=== PATIENT | male | born 1955 | race Caucasian/White ===

== ENCOUNTER 2020-06-16 12:31 | Day surgery (SDC) | payer MEDICARE, OTHER, SELFPAY ==
[2020-06-14 10:29] VITALS: BMI 29.0
--- NOTE | 2020-06-14 14:39 | HO.ANESPROP2 ---
Documented by User: Genny Watkins 06/14/20 14:41 HPI - Anesthesia Eval Consult details Narrative: 65yo M for Colonoscopy PMFSH Past Medical History Medical History Back pain Diabetes DVT (deep venous thrombosis) Elevated cholesterol Factor V deficiency History of fractured rib History of renal stone History of unsteady gait On anticoagulant therapy Surgical History Surgical History H/O cervical discectomy History of testicular surgery History of total left hip replacement Hx of colonoscopy Hx of elbow surgery Social History Social History Smoking Status: Never smoker Use of substances other than those prescribed or required for medical reasons: No Substance Use Type Other:: Medical Marijuana Advance Directives: No Advance Directives Information Provided: No Advance Directives on File: No Recently lost weight without trying: No Meds Allergies Allergy/AdvReac Type Severity Reaction Status Date / Time latex AdvReac Itching Verified 06/14/20 10:21 Home Medications Medication Instructions Recorded Confirmed Type atorvastatin 20 mg PO DAILY 06/14/20 06/14/20 History glipizide 5 mg PO BID 06/14/20 06/14/20 History insulin glargine [Lantus U-100 SUBCUT 06/14/20 History Insulin] lisinopril 5 mg PO DAILY 06/14/20 06/14/20 History warfarin 5 mg PO DAILY 06/14/20 06/14/20 History Exam Exam Date and Time: June 14, 2020 1439 Height,Weight and Vital Signs: Height 5 ft 11 in Weight 94.347 kg Pertinent Lab Results Pertinent Lab Results: Laboratory Tests 04/23/20 04/23/20 08:45 08:45 WBC 6.7 Hgb 14.5 Hct 43.8 Plt Count 203 Sodium 140 Potassium 4.7 Chloride 106 BUN 23 H Creatinine 1.11 Assessment and Plan Assessment Anesthesia Assessment: Chart Reviewed Documented by User: Mickey Briceno MD 06/16/20 13:39 PMFSH Past Medical History Medical History Back pain Diabetes DVT (deep venous thrombosis) Elevated cholesterol Factor V deficiency History of fractured rib History of renal stone History of unsteady gait On anticoagulant therapy Surgical History Surgical History H/O cervical discectomy History of testicular surgery History of total left hip replacement Hx of colonoscopy Hx of elbow surgery Social History Social History Smoking Status: Never smoker Use of substances other than those prescribed or required for medical reasons: No Substance Use Type Other:: Medical Marijuana Advance Directives: No Advance Directives Information Provided: No Advance Directives on File: No Recently lost weight without trying: No Meds Allergies Allergy/AdvReac Type Severity Reaction Status Date / Time latex AdvReac Itching Verified 06/14/20 10:21 Home Medications Medication Instructions Recorded Confirmed Type atorvastatin 20 mg PO DAILY 06/14/20 06/14/20 History glipizide 5 mg PO BID 06/14/20 06/14/20 History insulin glargine [Lantus U-100 SUBCUT 06/14/20 History Insulin] lisinopril 5 mg PO DAILY 06/14/20 06/14/20 History warfarin 5 mg PO DAILY 06/14/20 06/14/20 History Exam Airway Mallampati Class: II TM Dist: >3cm Neck ROM: Limited Loose/Missing/Broken Teeth: No Heart: rrr Lungs: nl Other: ao Assessment and Plan Assessment Anesthesia Assessment: Anesthesia Plan Discussed, PAT Visit and Chart Reviewed Final Anesthetic Review NPO: Yes ASA Class: III Final Preanesthetic Review: No Changes in Pt Med Stat, Meds/Allgs Chart Reviewed, Consent Obtained/Reviewed and Anes Risks/Benef Reviewed Patient Risk: Intermediate Procedure Risk: Intermediate Anesthetic Plan Anesthetic Plan: MAC: Disposition: Standard PACU
[2020-06-16 13:03] LABS: Glucose, Whole Blood 160 mg/dL (60-115)
[2020-06-16 13:04] VITALS: BP 155/76; PULSE 84; RESP 16; TEMP 36.2; O2SAT 95
[2020-06-16 13:08] LABS: INTERNATIONAL NORM RATIO 1.1 (0.9-1.1)
[2020-06-16] MEDS: Lactated Ringers 1,000 ML 100 ML IVCONT (13:13)
--- NOTE | 2020-06-16 13:31 | MHC.SHP ---
Pre-Procedural Eval Section B Chief Complaint: SCREENING Details of Present Illness: see h and p no changes Relevant Family History (Specify if Yes): No Relevant Social History: None Present Medications: see Short Stay Collaborative assessment Medical History: No relevant PMH History of Previous Operations: No relevant previous surgery Allergies: Allergies Allergy/AdvReac Type Severity Reaction Status Date / Time latex AdvReac Itching Verified 06/14/20 10:21 Review of Systems Sugical H&P ROS: Negative: Constitution, Cardiovascular, Respiratory, Neurological, Psychiatric, Hem-Onc, Allergic/Immunologic, Gastrointestinal, Genitourinary, Musculoskeletal, Integumentary, Endocrine and Eyes/Ears/Nose/Throat Exam Surgical H&P Exam: Normal: HEENT, Normal: Heart, Normal: Lungs, Normal: Extremities, Normal: Abdomen, Normal: Skin and Normal: Neurological Plan Diagnosis/Plan: Unchanged Patient has been examined and remains a candidate for the planned procedure
--- NOTE | 2020-06-16 14:14 | PM.OP ---
Brief Operative Note Date of procedure: 06/16/20 Pre-op diagnosis: screening Post-op diagnosis: same (colon polyps) Procedure: colonoscopy Surgeon: Vick Schuster Anesthesia: MAC Estimated blood loss (mL): 5 Pathology: other (cecal polyp,r colon polyps,polyp 65cm) Condition: stable Disposition: PACU
[2020-06-16 14:16] VITALS: BP 117/67; PULSE 65; RESP 16; TEMP 36.2; O2SAT 95
[2020-06-16 14:32] VITALS: BP 139/75; PULSE 78; RESP 16; TEMP 36.2; O2SAT 97
--- NOTE | 2020-06-16 14:49 | HO.POSTANES ---
Post Anesthesia Evaluation Post Anesthesia Evaluation Vital Signs: Vital Signs Temp Pulse Resp BP Pulse Ox 06/16/20 14:32 97.2 F 78 16 139/75 97 06/16/20 14:16 97.2 F 65 16 117/67 95 06/16/20 13:04 97.2 F 84 16 155/76 H 95 Anesthesia: Monitored Mental Status: Awake Pain Control: Satisfactory Nausea/Vomiting: None Hydration: Adequate Anesthesia-Related Issues: No Anes. Related Issues
--- NOTE | 2020-06-16 17:11 | OP_ITS ---
SURGEON: Vick Schuster MD INDICATIONS: Colon cancer screening. PREOPERATIVE DIAGNOSIS: POSTOPERATIVE DIAGNOSIS: PROCEDURE PERFORMED: Colonoscopy to the terminal ileum with snare polypectomy and biopsy. ESTIMATED BLOOD LOSS: COMPLICATIONS: ANESTHESIA: ASSISTANTS: SPECIMENS: MEDICATIONS: Monitored anesthesia care. DESCRIPTION OF PROCEDURE: History and physical performed. The risks and benefits of the procedure were explained to the patient. Informed consent was obtained. The patient was placed in the left lateral decubitus position. A digital rectal exam was performed and was found to be normal. The Olympus pediatric video colonoscope was introduced into the rectum and advanced to the cecum without difficulty. The cecum was identified by transillumination, palpation, and identification of ileocecal valve. Examination was performed and the scope was removed. He tolerated the procedure well and was taken to recovery area in stable condition. FINDINGS: The terminal ileum was normal. There was moderate amount of viscous liquid stool present in the right colon and transverse colon, limiting the examination. This was washed and suctioned as best possible. Multiple colonic polyps were present. In the cecum, was a 6 mm polyp, which was snared and recovered via suction. Two other polyps were snared and suctioned at the right colon and at 65 cm. A 4th polyp measuring less than 5 mm at the right colon was also removed with biopsy forceps. No other polyps were identified. Retroflexed examination showed internal hemorrhoids that were moderate in size. IMPRESSION: Colon polyps. RECOMMENDATION: Follow up the biopsy results. MD DAVID Pena/RENEE / [phone]
== END 2020-06-16 14:53 | disposition home or self-care (01) ==
PROVIDERS: Nurse Practitioner; PCP Internal Medicine; Visit Provider Internal Medicine Gastroenterology
PROC: 0DJD8ZZ Inspection of Lower Intestinal Tract, Via Natural or Artificial Opening Endoscopic (ICD-10-PCS; CPT 45378; principal; 2020-06-16 13:30)
DX: Z12.11 Encounter for screening for malignant neoplasm of colon (principal); D12.2 Benign neoplasm of ascending colon; D12.4 Benign neoplasm of descending colon; K51.40 Inflammatory polyps of colon without complications; K64.8 Other hemorrhoids; E11.9 Type 2 diabetes mellitus without complications; Z79.4 Long term (current) use of insulin; D68.2 Hereditary deficiency of other clotting factors; Z86.718 Personal history of other venous thrombosis and embolism; Z79.01 Long term (current) use of anticoagulants; R29.6 Repeated falls; R26.81 Unsteadiness on feet; Z79.899 Other long term (current) drug therapy; Z96.642 Presence of left artificial hip joint; Z91.040 Latex allergy status
CPT/HCPCS: 45385; 45380; 36415; 82947; 85610; 88305

== ENCOUNTER 2020-08-03 13:45 | Outpatient (REF) | payer MEDICARE, OTHER, SELFPAY ==
[2020-08-03 14:48] LABS: Estimated Average Glucose 223 mg/dL; Hemoglobin A1c % 9.4 %
[2020-08-03 15:06] LABS: Alanine Aminotransferase 35 U/L (0-40); Albumin Level 4.7 g/dL (3.5-5.0); Alkaline Phosphatase 136 U/L (39-117); Anion Gap 11 (12-20); Aspartate Amino Transferase 19 U/L (5-37); Bilirubin Total 0.5 mg/dL (0.0-1.0); Blood Urea Nitrogen 20 mg/dL (9-16); Calcium 9.5 mg/dL (8.4-10.2); Carbon Dioxide 27 mmol/L (22-29); Chloride 103 mmol/L (96-108); Estimated Glomerular Filt Rate > 60; Glucose Random 225 mg/dL (60-115); Potassium 4.7 mmol/l (3.3-5.1); Sodium 136 mmol/L (135-145); Total Protein 7.7 g/dL (6.5-8.0)
[2020-08-03 16:10] LABS: Creatinine Urine 117.31 mg/dL; Microalbum/Creatinine Ratio Ur 353.7 ug/mg cr
== END 2020-08-03 13:46 | disposition home or self-care (01) ==
LOC: HO.LAB 13:45
PROVIDERS: PCP Internal Medicine; Visit Provider Internal Medicine
DX: E78.00 Pure hypercholesterolemia, unspecified (principal); I10 Essential (primary) hypertension; E11.9 Type 2 diabetes mellitus without complications
CPT/HCPCS: 80053; 82043; 83036

== ENCOUNTER 2020-08-17 10:40 | Outpatient (REF) | payer MEDICARE, OTHER, SELFPAY | END 2020-08-17 10:41 | disposition home or self-care (01) | LOC: HO.MRI 10:40 | PROVIDERS: Visit Provider Neurological Surgery | DX: Z13.89 Encounter for screening for other disorder (principal) ==

== ENCOUNTER 2020-08-23 15:49 | Outpatient (REF) | payer MEDICARE, OTHER, SELFPAY ==
--- NOTE | 2020-08-23 16:00 | MR_ITS ---
MR LUMBAR SPINE WITHOUT IV CONTRAST CLINICAL INFORMATION: Leg pain. Low back pain. COMPARISON: None available. TECHNIQUE: MRI of the lumbar spine was obtained using routine sequences without contrast. FINDINGS: There are 5 nonrib-bearing lumbar-type vertebral bodies. Lumbar alignment is maintained. The vertebral body heights are preserved. Disc volumes are maintained. Disc desiccation at L1-L2, L2-L3, and L3-L4. Multilevel endplate osteophytes. There is marrow edema within the L4 and L5 posterior elements bilaterally that is most likely degenerative or inflammatory. There are no acute fractures. Bilateral perinephric stranding. Hypertrophic ankylosis across the SI joints bilaterally. T12-L1: Left paracentral disc osteophyte protrusion compresses the traversing left L1 nerve root within the left subarticular zone. Mild narrowing of the central canal. Mild to moderate bilateral foraminal stenosis. L1-L2: Right paracentral disc protrusion compresses the traversing right L2 nerve root within the right subarticular zone and results in mild to moderate central canal stenosis. There is mild to moderate bilateral foraminal stenosis. L2-L3: Diffuse annular disc bulge and severe bilateral facet arthropathy and ligamentum flavum giving. Findings in concert result in moderate central canal stenosis, severe bilateral subarticular zone stenosis with compression of the traversing L3 nerve roots bilaterally, and mild bilateral foraminal encroachment. L3-L4: Diffuse disc osteophyte complex and severe bilateral facet arthropathy and ligamentum flavum thickening. Findings in concert result in moderate to severe central canal stenosis, severe bilateral subarticular zone stenosis with compression of the traversing L4 nerve roots bilaterally, and moderate to severe bilateral foraminal stenosis with compression of the exiting L3 nerve roots bilaterally. L4-L5: Diffuse annular disc bulge and severe bilateral facet arthropathy and ligamentum flavum thickening. Findings in concert result in mild central canal stenosis, left greater than right subarticular zone stenosis with mass effect on the traversing left L5 nerve root, and moderate to severe bilateral foraminal stenosis with compression of the exiting L4 nerve roots bilaterally. L5-S1: Diffuse annular disc bulge with a superimposed left lateral disc osteophyte protrusion that contacts the extraforaminal left L5 nerve root without compression. Severe bilateral facet arthropathy. Mild narrowing of the central canal. Severe right and mild left foraminal stenosis with compression of the exiting right L5 nerve root. MR/MR lumbar spine wo con IMPRESSION: - At L5-S1, multifactorial degenerative changes result in severe right foraminal stenosis with compression of the exiting right L5 nerve root and a far left lateral disc osteophyte protrusion contacts the extraforaminal left L5 nerve root. - At L4-L5, advanced multifactorial degenerative changes result in left greater than right subarticular zone stenosis with mass effect on the traversing left L5 nerve root, and moderate to severe bilateral foraminal stenosis with compression of the exiting L4 nerve roots bilaterally. - At L3-L4, advanced multifactorial degenerative changes result in moderate to severe central canal stenosis, severe bilateral subarticular zone stenosis with compression of the traversing L4 nerve roots bilaterally, and moderate to severe bilateral foraminal stenosis with compression of the exiting L3 nerve roots bilaterally. - At L2-L3, multifactorial degenerative changes result in moderate central canal stenosis, severe bilateral subarticular zone stenosis with compression of the traversing L3 nerve roots bilaterally, and mild bilateral foraminal encroachment. - At L1-L2, a right paracentral disc protrusion compresses the traversing right L2 nerve root within the right subarticular zone and results in mild to moderate central canal stenosis. - At T12-L1, a left paracentral disc osteophyte protrusion compresses the traversing left L1 nerve root within the left subarticular zone. - Severe hypertrophic degenerative changes across the SI joints bilaterally.
== END 2020-08-23 15:50 | disposition home or self-care (01) ==
LOC: HO.MRI 15:49
PROVIDERS: Visit Provider Neurological Surgery
DX: M54.5 Low back pain (principal); M79.604 Pain in right leg; M79.605 Pain in left leg
CPT/HCPCS: 72148

== ENCOUNTER 2020-11-09 13:43 | Outpatient (REF) | payer MEDICARE, OTHER, SELFPAY ==
[2020-11-09 14:52] LABS: MANUAL DIFF FLAG NO
[2020-11-09 14:56] LABS: Basophils Percent Auto 0.4 % (0-2); Eosinophils Absolute Auto 0.1 X10*3/uL (0.0-0.4); Eosinophils Percent Auto 1.6 % (0-4); Hematocrit 44.6 % (42-52); Hemoglobin 14.7 g/dl (14.0-18.0); Imm Gran Abs Auto 0.01 X10*3/uL (0.00-0.03); Imm Gran Pct Auto 0.1 % (0.0-0.4); Lymphocytes Absolute Auto 1.8 X10*3/uL (1.2-4.9); Lymphocytes Percent Auto 27.4 % (20-40); Mean Corpuscular Hemoglobin 29.5 pg (27.0-33.0); Mean Corpuscular Volume 89.6 fL (80-98); Mean Platelet Volume 11.2 fL (9.4-12.4); Monocytes Absolute Auto 0.6 X10*3/uL (0.1-1.2); Monocytes Percent Auto 8.6 % (2-11); Neutrophils Absolute Auto 4.2 X10*3/uL (2.0-8.3); Neutrophils Percent Auto 61.9 % (45-73); Platelet Count 205 X10*3/uL (160-400); Red Blood Count 4.98 X10*6/uL (4.60-5.80); Red Cell Distribution Width 12.7 % (11.0-16.0); White Blood Count 6.7 X10*3/uL (4.8-10.8)
[2020-11-09 15:02] LABS: Estimated Average Glucose 235 mg/dL; Hemoglobin A1c % 9.8 %
[2020-11-09 15:17] LABS: Alanine Aminotransferase 40 U/L (0-40); Albumin Level 4.6 g/dL (3.5-5.0); Alkaline Phosphatase 152 U/L (39-117); Anion Gap 10 (12-20); Aspartate Amino Transferase 19 U/L (5-37); Bilirubin Total 0.6 mg/dL (0.0-1.0); Blood Urea Nitrogen 25 mg/dL (9-16); Calcium 9.6 mg/dL (8.4-10.2); Carbon Dioxide 29 mmol/L (22-29); Chloride 105 mmol/L (96-108); Estimated Glomerular Filt Rate > 60; Glucose Random 290 mg/dL (60-115); Potassium 4.7 mmol/L (3.3-5.1); Sodium 139 mmol/L (135-145); Total Protein 7.6 g/dL (6.5-8.0)
[2020-11-09 16:04] LABS: Creatinine Urine 122.51 mg/dL; Microalbum/Creatinine Ratio Ur 301.1 ug/mg cr
== END 2020-11-09 13:44 | disposition home or self-care (01) ==
LOC: HO.LAB 13:43
PROVIDERS: PCP Internal Medicine; Visit Provider Internal Medicine
DX: E11.22 Type 2 diabetes mellitus with diabetic chronic kidney disease (principal); I12.9 Hypertensive chronic kidney disease with stage 1 through stage 4 chronic kidney disease, or unspecified chronic kidney disease; N18.9 Chronic kidney disease, unspecified
CPT/HCPCS: 36415; 80053; 82043; 83036; 85025

== ENCOUNTER → 2020-12-20 07:00 | Day surgery (SDC) | payer MEDICARE, SELFPAY ==
--- NOTE | ~2020-12-20 | IR_ITS ---
EXAMINATION: FLUOROSCOPY GUIDANCE FOR SPINE INJECTION CLINICAL INFORMATION: Reading right-sided low back pain to the anterior and posterior thigh and right foot. COMPARISON: None TECHNIQUE: Following explaining fluoroscopy-guided right L5-S1 epidural steroid injection procedure, benefits and risk, a written consent was obtained. Patient was placed prone on fluoroscopy table and low back area was cleaned and draped in usual sterile manner. 1% lidocaine was injected puncture site. A 22-gauge spinal needle was then inserted from a right para midline location intrathecally in the right posterior epidural space at L5-S1 disc level. 1-2 mL of nonionic contrast was injected and single image was obtained documenting contrast in the epidural space. Subsequently 5 mL/30 mg of betamethasone and 1% 3 mL lidocaine was injected and needle withdrawn. Complete hemostasis was achieved at puncture site. Patient tolerated procedure extremely well. FINDINGS: There is contrast opacifying the posterior epidural space at L5-S1 disc level. Approximately 5 mg of betamethasone was injected with 1% lidocaine without immediate complications. FLUOROSCOPY TIME: 2.8 minutes DOSE AREA PRODUCT: 2318 uGy-m2 (microgray-meter squared) IR/IR inj epidural lumb/sac IMPRESSION: Successful fluoroscopy-guided right para midline L5-S1 epidural steroid injection performed.
[2020-12-20 07:23] VITALS: BMI 29.2
[2020-12-20 07:38] VITALS: BP 163/77; PULSE 63; RESP 18; TEMP 36.2; O2SAT 99
[2020-12-20 07:47] LABS: Glucose, Whole Blood 193 mg/dL (60-115)
[2020-12-20 07:55] LABS: MANUAL DIFF FLAG NO
[2020-12-20 08:04] LABS: Basophils Percent Auto 0.4 % (0-2); Eosinophils Absolute Auto 0.2 X10*3/uL (0.0-0.4); Eosinophils Percent Auto 2.4 % (0-4); Hematocrit 43.4 % (42-52); Hemoglobin 14.5 g/dl (14.0-18.0); Imm Gran Abs Auto 0.02 X10*3/uL (0.00-0.03); Imm Gran Pct Auto 0.3 % (0.0-0.4); Lymphocytes Absolute Auto 2.3 X10*3/uL (1.2-4.9); Lymphocytes Percent Auto 32.3 % (20-40); Mean Corpuscular HGB Conc 33.4 g/dl (31.0-36.0); Mean Corpuscular Hemoglobin 29.9 pg (27.0-33.0); Mean Corpuscular Volume 89.5 fL (80-98); Mean Platelet Volume 10.3 fL (9.4-12.4); Monocytes Absolute Auto 0.7 X10*3/uL (0.1-1.2); Monocytes Percent Auto 9.2 % (2-11); Neutrophils Percent Auto 55.4 % (45-73); Platelet Count 216 X10*3/uL (160-400); Red Blood Count 4.85 X10*6/uL (4.60-5.80); Red Cell Distribution Width 12.6 % (11.0-16.0); White Blood Count 7.2 X10*3/uL (4.8-10.8)
[2020-12-20 08:10] LABS: INTERNATIONAL NORM RATIO 1.1 (0.9-1.1); Prothrombin Time 12.9 SEC (10.8-13.0)
[2020-12-20 08:13] LABS: Partial Thromboplastin Time 33.4 SEC (24.1-38.0)
[2020-12-20 09:40] VITALS: BP 154/62; PULSE 60; RESP 16; TEMP 36.1; O2SAT 97
[2020-12-20] MEDS: Betamet Acet/Betamet Na Ph 30 MG/5 ML VIAL 12 MG IM (09:52)
[2020-12-20 09:55] VITALS: BP 150/51; PULSE 65; RESP 16; O2SAT 97
[2020-12-20] MEDS: Lidocaine HCl 1 % MPF 5 ML VIAL SUBCUT (09:57)
[2020-12-20 10:10] VITALS: BP 159/76; PULSE 60; RESP 16; O2SAT 97
[2020-12-20 10:25] VITALS: BP 155/78; PULSE 60; RESP 16; O2SAT 97
[2020-12-20 11:25] VITALS: BP 176/74; PULSE 71; RESP 16; O2SAT 98
== END | disposition home or self-care (01) ==
PROVIDERS: Radiology Diagnostic Radiology; PCP Internal Medicine; Visit Provider Radiology Diagnostic Radiology
PROC: 3E0R3GC Introduction of Other Therapeutic Substance into Spinal Canal, Percutaneous Approach (ICD-10-PCS; principal; 2020-12-20 08:30)
DX: M54.31 Sciatica, right side (principal); D68.4 Acquired coagulation factor deficiency; E11.9 Type 2 diabetes mellitus without complications; Z79.4 Long term (current) use of insulin
CPT/HCPCS: 36415; 62323; 82947; 85025; 85610; 85730; J0702; Q9967

== ENCOUNTER 2021-02-22 13:51 | Outpatient (REF) | payer MEDICARE, OTHER, SELFPAY ==
[2021-02-22 14:21] LABS: MANUAL DIFF FLAG NO
[2021-02-22 14:23] LABS: Basophils Percent Auto 0.5 % (0-2); Eosinophils Absolute Auto 0.2 X10*3/uL (0.0-0.4); Eosinophils Percent Auto 2.3 % (0-4); Hemoglobin 13.8 g/dl (14.0-18.0); Imm Gran Abs Auto 0.02 X10*3/uL (0.00-0.03); Imm Gran Pct Auto 0.3 % (0.0-0.4); Lymphocytes Absolute Auto 1.8 X10*3/uL (1.2-4.9); Mean Corpuscular HGB Conc 32.9 g/dl (31.0-36.0); Mean Corpuscular Hemoglobin 30.1 pg (27.0-33.0); Mean Corpuscular Volume 91.5 fL (80-98); Monocytes Absolute Auto 0.7 X10*3/uL (0.1-1.2); Monocytes Percent Auto 9.6 % (2-11); Neutrophils Absolute Auto 4.6 X10*3/uL (2.0-8.3); Neutrophils Percent Auto 62.3 % (45-73); Platelet Count 214 X10*3/uL (160-400); Red Blood Count 4.59 X10*6/uL (4.60-5.80); Red Cell Distribution Width 13.2 % (11.0-16.0); White Blood Count 7.4 X10*3/uL (4.8-10.8)
[2021-02-22 14:29] LABS: Estimated Average Glucose 197 mg/dL; Hemoglobin A1c % 8.5 %
[2021-02-22 14:59] LABS: Alanine Aminotransferase 29 U/L (0-40); Albumin Level 4.4 g/dL (3.5-5.0); Alkaline Phosphatase 117 U/L (39-117); Anion Gap 9 (12-20); Aspartate Amino Transferase 21 U/L (5-37); Bilirubin Total 0.4 mg/dL (0.0-1.0); Blood Urea Nitrogen 21 mg/dL (9-16); Calcium 9.7 mg/dL (8.4-10.2); Carbon Dioxide 30 mmol/L (22-29); Chloride 106 mmol/L (96-108); Estimated Glomerular Filt Rate > 60; Glucose Random 163 mg/dL (60-115); Potassium 4.7 mmol/L (3.3-5.1); Sodium 140 mmol/L (135-145); Total Protein 7.2 g/dL (6.5-8.0)
[2021-02-22 16:03] LABS: Creatinine Urine 130.82 mg/dL; Microalbum/Creatinine Ratio Ur 90.2 ug/mg cr
== END 2021-02-22 13:52 | disposition home or self-care (01) ==
LOC: HO.LAB 13:51
PROVIDERS: PCP Internal Medicine; Visit Provider Internal Medicine
DX: I10 Essential (primary) hypertension (principal); E11.9 Type 2 diabetes mellitus without complications
CPT/HCPCS: 36415; 80053; 82043; 83036; 85025

== ENCOUNTER 2021-05-17 13:45 | Outpatient (REF) | payer MEDICARE, OTHER, SELFPAY ==
--- NOTE | ~2021-05-17 | XR_ITS ---
EXAMINATION: XR KNEE, RIGHT XR KNEE, LEFT CLINICAL INFORMATION: Bilateral knee pain. COMPARISON: Most recent left knee radiographs dated 03/27/2014 and right knee radiographs dated 01/23/2009. TECHNIQUE: AP, tunnel, lateral, and sunrise views of the right and left knee. FINDINGS: Right Knee: [id number]-yo-mtezjvme medial compartment joint space narrowing. Tiny tricompartmental marginal osteophytes. No fracture or dislocation. Superior and inferior patellar enthesophytes. Small joint effusion. Atherosclerotic calcifications. No fracture or dislocation. Left Knee: Pphszdoi-nl-jdsufj medial compartment joint space narrowing. Weightbearing medial femoral condyle subchondral cystic change. Tricompartmental marginal osteophytes. Superior and inferior patellar enthesophytes. Trace joint effusion. Atherosclerotic calcifications. XR/XR knee RT 4V IMPRESSION: Right Knee: Tricompartmental osteoarthritis, progressed when compared to the prior examination. Small joint effusion. Left Knee: Tricompartmental osteoarthritis, progressed when compared to the prior radiographs. Trace joint effusion.
--- NOTE | ~2021-05-17 | XR_ITS ---
EXAMINATION: XR KNEE, RIGHT XR KNEE, LEFT CLINICAL INFORMATION: Bilateral knee pain. COMPARISON: Most recent left knee radiographs dated 03/27/2014 and right knee radiographs dated 01/23/2009. TECHNIQUE: AP, tunnel, lateral, and sunrise views of the right and left knee. FINDINGS: Right Knee: Tmwk-gn-jhtmxado medial compartment joint space narrowing. Tiny tricompartmental marginal osteophytes. No fracture or dislocation. Superior and inferior patellar enthesophytes. Small joint effusion. Atherosclerotic calcifications. No fracture or dislocation. Left Knee: Zpibgzun-nm-exfhxq medial compartment joint space narrowing. Weightbearing medial femoral condyle subchondral cystic change. Tricompartmental marginal osteophytes. Superior and inferior patellar enthesophytes. Trace joint effusion. Atherosclerotic calcifications. XR/XR knee LT 4V IMPRESSION: Right Knee: Tricompartmental osteoarthritis, progressed when compared to the prior examination. Small joint effusion. Left Knee: Tricompartmental osteoarthritis, progressed when compared to the prior radiographs. Trace joint effusion.
[2021-05-17 13:54] LABS: MANUAL DIFF FLAG NO
[2021-05-17 14:10] LABS: Basophils Percent Auto 0.7 % (0-2); Eosinophils Absolute Auto 0.1 X10*3/uL (0.0-0.4); Eosinophils Percent Auto 2.3 % (0-4); Hematocrit 42.2 % (42-52); Hemoglobin 14.4 g/dl (14.0-18.0); Imm Gran Abs Auto 0.02 X10*3/uL (0.00-0.03); Imm Gran Pct Auto 0.3 % (0.0-0.4); Lymphocytes Absolute Auto 1.5 X10*3/uL (1.2-4.9); Lymphocytes Percent Auto 24.3 % (20-40); Mean Corpuscular HGB Conc 34.1 g/dl (31.0-36.0); Mean Corpuscular Hemoglobin 30.6 pg (27.0-33.0); Mean Corpuscular Volume 89.6 fL (80-98); Mean Platelet Volume 10.4 fL (9.4-12.4); Monocytes Absolute Auto 0.7 X10*3/uL (0.1-1.2); Monocytes Percent Auto 11.4 % (2-11); Neutrophils Absolute Auto 3.7 X10*3/uL (2.0-8.3); Platelet Count 210 X10*3/uL (160-400); Red Blood Count 4.71 X10*6/uL (4.60-5.80); Red Cell Distribution Width 12.6 % (11.0-16.0); White Blood Count 6.1 X10*3/uL (4.8-10.8)
[2021-05-17 14:46] LABS: Alanine Aminotransferase 27 U/L (0-40); Albumin Level 4.3 g/dL (3.5-5.0); Alkaline Phosphatase 150 U/L (39-117); Anion Gap 7 (12-20); Aspartate Amino Transferase 18 U/L (5-37); Bilirubin Total 0.3 mg/dL (0.0-1.0); Blood Urea Nitrogen 17 mg/dL (9-16); C Reactive Protein 0.12 mg/dL (< or = 0.50); Calcium 9.4 mg/dL (8.4-10.2); Carbon Dioxide 29 mmol/L (22-29); Chloride 106 mmol/L (96-108); Estimated Glomerular Filt Rate > 60; Glucose Random 211 mg/dL (60-115); Potassium 4.3 mmol/L (3.3-5.1); Sodium 138 mmol/L (135-145); Total Protein 7.1 g/dL (6.5-8.0)
[2021-05-17 14:50] LABS: Estimated Average Glucose 171 mg/dL; Hemoglobin A1c % 7.6 %
== END 2021-05-17 13:46 | disposition home or self-care (01) ==
LOC: HO.XRAY 13:45
PROVIDERS: PCP Internal Medicine; Visit Provider Internal Medicine
DX: E11.9 Type 2 diabetes mellitus without complications (principal); I10 Essential (primary) hypertension; M25.561 Pain in right knee; M25.562 Pain in left knee
CPT/HCPCS: 36415; 73564; 80053; 83036; 85025; 86140

== ENCOUNTER 2021-06-09 11:03 | Outpatient (REF) | payer MEDICARE, OTHER, SELFPAY ==
--- NOTE | ~2021-06-09 | XR_ITS ---
EXAMINATION: XR KNEE, BILATERAL AP STANDING CLINICAL INFORMATION: Pain. COMPARISON: Right and left knee radiographs dated 05/17/2021. TECHNIQUE: AP bilateral standing view of the knees was obtained. FINDINGS: RIGHT KNEE: Moderate medial compartment joint space narrowing. Medial and lateral compartment marginal osteophytes and chondrocalcinosis. No osseous erosion. No fracture or dislocation. LEFT KNEE: Moderate medial compartment joint space narrowing. Medial and lateral compartment marginal osteophytes and chondrocalcinosis. No osseous erosion. No fracture or dislocation. XR/XR knee standing BI IMPRESSION: Right knee: Moderate medial and mild lateral compartment osteoarthritis with chondrocalcinosis, unchanged. Left knee: Moderate medial and mild lateral compartment osteoarthritis with chondrocalcinosis, unchanged.
== END 2021-06-09 11:04 | disposition home or self-care (01) ==
LOC: HO.HOSX 11:03
PROVIDERS: PCP Internal Medicine; Visit Provider Orthopaedic Surgery
DX: M17.0 Bilateral primary osteoarthritis of knee (principal); R26.89 Other abnormalities of gait and mobility; E11.40 Type 2 diabetes mellitus with diabetic neuropathy, unspecified
CPT/HCPCS: 73565; 99202

== ENCOUNTER 2021-08-31 11:29 | Outpatient (REF) | payer MEDICARE, OTHER, SELFPAY ==
[2021-08-31 11:46] LABS: MANUAL DIFF FLAG NO
[2021-08-31 12:14] LABS: Basophils Percent Auto 0.5 % (0-2); Eosinophils Absolute Auto 0.1 X10*3/uL (0.0-0.4); Eosinophils Percent Auto 1.9 % (0-4); Hematocrit 46.6 % (42.0-52.0); Hemoglobin 14.9 g/dl (14.0-18.0); Imm Gran Abs Auto 0.02 X10*3/uL (0.00-0.03); Imm Gran Pct Auto 0.3 % (0.0-0.4); Lymphocytes Absolute Auto 1.8 X10*3/uL (1.2-4.9); Lymphocytes Percent Auto 24.2 % (20-40); Mean Corpuscular Hemoglobin 29.4 pg (27.0-33.0); Mean Corpuscular Volume 91.9 fL (80.0-98.0); Mean Platelet Volume 10.4 fL (9.4-12.4); Monocytes Absolute Auto 0.8 X10*3/uL (0.1-1.2); Monocytes Percent Auto 10.1 % (2-11); Neutrophils Absolute Auto 4.8 x10*3/uL (2.0-8.3); Platelet Count 223 X10*3/uL (160-400); Red Blood Count 5.07 X10*6/uL (4.60-5.80); White Blood Count 7.6 X10*3/uL (4.8-10.8)
[2021-08-31 12:23] LABS: Estimated Average Glucose 183 mg/dL
[2021-08-31 12:42] LABS: Alanine Aminotransferase 46 U/L (0-40); Albumin Level 4.7 g/dL (3.5-5.0); Alkaline Phosphatase 166 U/L (39-117); Anion Gap 12 (12-20); Aspartate Amino Transferase 28 U/L (5-37); Bilirubin Total 0.3 mg/dL (0.0-1.0); Blood Urea Nitrogen 22 mg/dL (9-16); C Reactive Protein 0.07 mg/dL (< or = 0.50); Calcium 10.1 mg/dL (8.4-10.2); Carbon Dioxide 29 mmol/L (22-29); Chloride 106 mmol/L (96-108); Estimated Glomerular Filt Rate > 60; Glucose Random 200 mg/dL (60-115); Potassium 4.5 mmol/L (3.3-5.1); Sodium 142 mmol/L (135-145)
[2021-08-31 12:43] LABS: Microalbum/Creatinine Ratio Ur 489.4 ug/mg cr
[2021-08-31 14:20] LABS: Vitamin B12 239 pg/mL (200-900)
== END 2021-08-31 11:30 | disposition home or self-care (01) ==
LOC: HO.LAB 11:29
PROVIDERS: PCP Internal Medicine; Visit Provider Internal Medicine
DX: E11.9 Type 2 diabetes mellitus without complications (principal); I10 Essential (primary) hypertension; N40.0 Benign prostatic hyperplasia without lower urinary tract symptoms; G62.9 Polyneuropathy, unspecified
CPT/HCPCS: 36415; 80053; 82043; 82607; 83036; 85025; 86140

== ENCOUNTER 2021-09-19 07:55 | Outpatient (REF) | payer MEDICARE, OTHER, SELFPAY | END 2021-09-19 07:56 | disposition home or self-care (01) | LOC: HO.10HDL 07:55 | PROVIDERS: Visit Provider Internal Medicine | DX: Z13.89 Encounter for screening for other disorder (principal) ==

== ENCOUNTER 2021-09-19 08:22 | Outpatient (REF) | payer MEDICARE, OTHER, SELFPAY | END 2021-09-19 08:23 | disposition home or self-care (01) | LOC: HO.LABR 08:22 | PROVIDERS: PCP Internal Medicine; Visit Provider Internal Medicine | DX: Z13.89 Encounter for screening for other disorder (principal) ==

== ENCOUNTER 2021-09-20 11:16 | Outpatient (REF) | payer MEDICARE, OTHER, SELFPAY ==
[2021-09-20 11:52] LABS: INTERNATIONAL NORM RATIO 1.4 (0.9-1.1); Prothrombin Time 16.2 SEC (9.9-13.0)
== END 2021-09-20 11:17 | disposition home or self-care (01) ==
LOC: HO.LABR 11:16
PROVIDERS: PCP Internal Medicine; Visit Provider Internal Medicine
DX: I82.90 Acute embolism and thrombosis of unspecified vein (principal)
CPT/HCPCS: 36415; 85610

== ENCOUNTER 2021-11-29 13:31 | Outpatient (REF) | payer MEDICARE, OTHER, SELFPAY ==
[2021-11-29 13:50] LABS: MANUAL DIFF FLAG NO
[2021-11-29 14:19] LABS: Basophils Percent Auto 0.4 % (0-2); Eosinophils Absolute Auto 0.1 X10*3/uL (0.0-0.4); Eosinophils Percent Auto 1.6 % (0-4); Hematocrit 41.4 % (42.0-52.0); Hemoglobin 13.7 g/dl (14.0-18.0); Imm Gran Abs Auto 0.04 X10*3/uL (0.00-0.03); Imm Gran Pct Auto 0.5 % (0.0-0.4); Lymphocytes Percent Auto 25.6 % (20-40); Mean Corpuscular HGB Conc 33.1 g/dl (31.0-36.0); Mean Corpuscular Hemoglobin 29.3 pg (27.0-33.0); Mean Corpuscular Volume 88.7 fL (80.0-98.0); Mean Platelet Volume 10.8 fL (9.4-12.4); Monocytes Absolute Auto 0.7 X10*3/uL (0.1-1.2); Monocytes Percent Auto 8.7 % (2-11); Neutrophils Percent Auto 63.2 % (45-73); Platelet Count 190 X10*3/uL (160-400); Red Blood Count 4.67 X10*6/uL (4.60-5.80); Red Cell Distribution Width 13.2 % (11.0-16.0)
[2021-11-29 14:28] LABS: INTERNATIONAL NORM RATIO 3.6 (0.9-1.1)
[2021-11-29 14:46] LABS: Alanine Aminotransferase 45 U/L (0-40); Albumin Level 4.2 g/dL (3.5-5.0); Alkaline Phosphatase 162 U/L (39-117); Anion Gap 9 (12-20); Aspartate Amino Transferase 23 U/L (5-37); Bilirubin Total 0.5 mg/dL (0.0-1.0); Blood Urea Nitrogen 16 mg/dL (9-16); Calcium 9.4 mg/dL (8.4-10.2); Carbon Dioxide 30 mmol/L (22-29); Chloride 103 mmol/L (96-108); Estimated Glomerular Filt Rate > 60; Glucose Random 321 mg/dL (60-115); Potassium 4.6 mmol/L (3.3-5.1); Sodium 137 mmol/L (135-145); Total Protein 7.1 g/dL (6.5-8.0)
[2021-11-29 15:45] LABS: Microalbum/Creatinine Ratio Ur 687.5 ug/mg cr
[2021-11-29 17:02] LABS: Estimated Average Glucose 255 mg/dL; Hemoglobin A1c % 10.5 %
== END 2021-11-29 13:32 | disposition home or self-care (01) ==
LOC: HO.LAB 13:31
PROVIDERS: PCP Internal Medicine; Visit Provider Internal Medicine
DX: E11.22 Type 2 diabetes mellitus with diabetic chronic kidney disease (principal); I12.9 Hypertensive chronic kidney disease with stage 1 through stage 4 chronic kidney disease, or unspecified chronic kidney disease; N18.9 Chronic kidney disease, unspecified; D68.51 Activated protein C resistance
CPT/HCPCS: 36415; 80053; 82043; 83036; 85025; 85610

== ENCOUNTER → 2021-12-09 11:34 | Outpatient (BNVA) | payer MEDICARE, OTHER, SELFPAY | PROVIDERS: PCP Internal Medicine; Visit Provider Orthopaedic Surgery | DX: S43.101A Unspecified dislocation of right acromioclavicular joint, initial encounter (principal) | CPT/HCPCS: 99212 ==

== ENCOUNTER 2022-01-27 09:00 | Outpatient (RCR) | payer MEDICARE, OTHER, SELFPAY ==
--- NOTE | 2021-12-16 12:20 | MHC.PT.EP ---
[facility] [place] Office [place] Office [place] Office [address] Rebeca Anderson [address] [phone] F: [phone] F: [phone] F: [phone] F: [phone] Physical Therapy Plan of Care Date of Evaluation: Date of Surgery: NA Diagnosis: DISLOCATION R AC JOINT Assessment: Pt IS 66 YO M WITH HX OF FALL IN TUB IN 10/2019 AND JAMMED HIS R SHLDER. DID NOT REALLY ADDRESS IT BECAUSE OF COVID AND THEN SAW DR ARGUETA HAD XRAY (?WHAT FACILITY) WITH DX OF CHRONIC ACJT SEPARATION AND REFERRED TO PT (Pt DID NOT WANT CORTISONE INJECTION AT THIS TIME). Pt PRESENTS WITH LIMITED SHOULDER ROM AND STRENGTH ON THE R SIDE WITH CREPITUS, PAIN AND LIMITED USE. Pt HAS HAD CERVICAL SURGERY IN PAST AND HAS DIABETIC NEUROPATHY WITH REPORT OF SOME TROUBLE WITH FINE MOTOR SKILLS AND SOME BALANCE DEFICITS. SHOULD BENEFIT FROM PT TO ADDRESS THESE ISSUES. OF NOTE, Pt ALSO REPORTS KNEE ISSUES AND MAY BENEFIT FROM PT FOR LE STRENGTHENING UPON COMPLETION OF PT FOR SHLDER Frequency and Duration: The patient will be seen 2X/WK X 6 WKS Short Term Goals: 1. INCREASED POSTURE AWARENESS AND AWARENESS SHOULDER CARE 2. IMPROVED SLEEP [employer] Goals: 1. INCREASED R SHLDER ROM 10-20 DEGREES T/O 2. I HEP WITH DC EX PLAN 3. Pt TO REPORT INCREASED STRENGTH WITH IMPROVED USE R UE 4. DECREASED R SHLDER PAIN AT LEAST 50% WITH ADLS Treatment Plan: Modalities to reduce pain, spasms and effusion. Manual therapy to restore motion and function. Therapeutic exercise to improve strength and flexibility. Neuromuscular re-education for posture and balance. Therapeutic activities to return to functional activities of daily living. Electronically signed by: KATE MCKNIGHT PT Please sign and return to therapist. Thank you for your referral.
--- NOTE | 2022-02-20 15:22 | MHC.PT.DC ---
[facility] [place] Office [place] Office [place] Office [address] Rebeca Anderson [address] [phone] F: [phone] F: [phone] F: [phone] F: [phone] Physical Therapy Discharge Report Diagnosis: DISLOCATION R AC JOINT Date of Surgery: NA Date of Evaluation: 12/16/21 Date of Discharge: 02/20/22 Treatments to Date: 8 Cancellations to Date: No Shows to Date: Discharge Status: Achieved Goals Improved Function Independent with HEP Discharge Summary: Pt LAST SEEN ON 01/27/22 BY JARROD CRYSTAL PT DPT. PER ASSESSMENT ON THAT DAY Pt expressing functional use of R UE, reports now able to lie on R SL for short periods of time.' WITH PLAN TO TRANSITION TO HEP Electronically signed by: KATE MCKNIGHT PT Please sign and return to therapist. Thank you for your referral.
== END 2022-02-20 15:23 | disposition home or self-care (01) ==
LOC: HO.PTWFD 09:00
PROVIDERS: PCP Internal Medicine; Visit Provider Orthopaedic Surgery
DX: S43.101D Unspecified dislocation of right acromioclavicular joint, subsequent encounter (principal)
CPT/HCPCS: 97110; 97140; 97162; 97535

== ENCOUNTER 2022-02-28 13:42 | Outpatient (REF) | payer MEDICARE, OTHER, SELFPAY ==
[2022-02-28 13:57] LABS: MANUAL DIFF FLAG NO
[2022-02-28 14:02] LABS: Basophils Percent Auto 0.3 % (0-2); Eosinophils Absolute Auto 0.1 X10*3/uL (0.0-0.4); Eosinophils Percent Auto 1.6 % (0-4); Hematocrit 41.5 % (42.0-52.0); Hemoglobin 13.9 g/dl (14.0-18.0); Imm Gran Abs Auto 0.02 X10*3/uL (0.00-0.03); Imm Gran Pct Auto 0.3 % (0.0-0.4); Lymphocytes Absolute Auto 1.6 X10*3/uL (1.2-4.9); Lymphocytes Percent Auto 23.5 % (20-40); Mean Corpuscular HGB Conc 33.5 g/dl (31.0-36.0); Mean Corpuscular Hemoglobin 30.2 pg (27.0-33.0); Mean Platelet Volume 10.2 fL (9.4-12.4); Monocytes Absolute Auto 0.7 X10*3/uL (0.1-1.2); Monocytes Percent Auto 9.6 % (2-11); Neutrophils Absolute Auto 4.4 x10*3/uL (2.0-8.3); Neutrophils Percent Auto 64.7 % (45-73); Platelet Count 214 X10*3/uL (160-400); Red Blood Count 4.61 X10*6/uL (4.60-5.80); Red Cell Distribution Width 12.8 % (11.0-16.0); White Blood Count 6.8 X10*3/uL (4.8-10.8)
[2022-02-28 15:44] LABS: Estimated Average Glucose 209 mg/dL; Hemoglobin A1c % 8.9 %
[2022-02-28 15:57] LABS: Microalbum/Creatinine Ratio Ur 130.3 ug/mg cr
[2022-02-28 16:11] LABS: Alanine Aminotransferase 30 U/L (0-40); Albumin Level 4.4 g/dL (3.5-5.0); Alkaline Phosphatase 154 U/L (39-117); Anion Gap 12 (12-20); Aspartate Amino Transferase 18 U/L (5-37); Bilirubin Total 0.4 mg/dL (0.0-1.0); Blood Urea Nitrogen 23 mg/dL (9-16); Calcium 9.3 mg/dL (8.4-10.2); Carbon Dioxide 27 mmol/L (22-29); Chloride 104 mmol/L (96-108); Estimated Glomerular Filt Rate 56; Glucose Random 401 mg/dL (60-115); Potassium 4.7 mmol/L (3.3-5.1); Sodium 138 mmol/L (135-145); Total Protein 7.3 g/dL (6.5-8.0)
== END 2022-02-28 13:43 | disposition home or self-care (01) ==
LOC: HO.LAB 13:42
PROVIDERS: PCP Internal Medicine; Visit Provider Internal Medicine
DX: I12.9 Hypertensive chronic kidney disease with stage 1 through stage 4 chronic kidney disease, or unspecified chronic kidney disease (principal); N18.9 Chronic kidney disease, unspecified; E11.22 Type 2 diabetes mellitus with diabetic chronic kidney disease
CPT/HCPCS: 36415; 80053; 82043; 83036; 85025

== ENCOUNTER 2022-04-12 08:00 | Outpatient (RCR) | payer MEDICARE, OTHER, SELFPAY ==
[2022-02-03 07:10] VITALS: BP 137/70; PULSE 80; O2SAT 96
--- NOTE | 2022-04-12 09:55 | MHC.PT.DC ---
[facility] [place] Office [place] Office [place] Office [address] Rebeca Anderson [address] [phone] F: [phone] F: [phone] F: [phone] F: [phone] Physical Therapy Discharge Report Diagnosis: R26.89 Other abdnormalities of gait and mobility M17.0 Bilateral primary osteoarthritis of knee Other abnormalities of gait and mobility Bilateral primary OA of knee Home exercise program for leg strengthening, closed chain exercises. Balance problem. Localized osteoarthritis of knees, bilateral signed by Dr. Thorpe on 12/02/21. Date of Surgery: Date of Evaluation: 02/03/22 Date of Discharge: 04/12/22 Treatments to Date: 10 Cancellations to Date: No Shows to Date: Discharge Status: Achieved Goals Improved Function Independent with HEP Discharge Summary: Pt HAS MET MOST PT GOALS BUT READILY ADMITS TO POOR CARRYOVER TO HOME. RECOMMENDED EX/BAL CLASS AT LEAST 1X/WK FOR ORGANIZED EXERCISE (CALLED TO THE [facility]CLASSES ARE FREE) AND ENCOURAGED HOME EXS ABLE. Pt ALSO READILY ADMITS FEELING BETTER WHEN PERFORMS EXS/STRETCHES. HAS WRITTEN HOME PROGRAM Electronically signed by: KATE MCKNIGHT PT Please sign and return to therapist. Thank you for your referral.
== END 2022-04-12 09:55 | disposition home or self-care (01) ==
LOC: HO.PTWFD 08:00
PROVIDERS: PCP Internal Medicine; Visit Provider Orthopaedic Surgery
DX: R26.89 Other abnormalities of gait and mobility (principal); M17.0 Bilateral primary osteoarthritis of knee
CPT/HCPCS: 97110; 97162; 97163; 97530

== ENCOUNTER 2022-04-26 12:06 | Outpatient (REF) | payer MEDICARE, OTHER, SELFPAY ==
[2022-04-26 13:35] LABS: MANUAL DIFF FLAG NO
[2022-04-26 13:45] LABS: Basophils Percent Auto 0.5 % (0-2); Eosinophils Absolute Auto 0.1 X10*3/uL (0.0-0.4); Eosinophils Percent Auto 1.6 % (0-4); Hematocrit 42.7 % (42.0-52.0); Imm Gran Abs Auto 0.02 X10*3/uL (0.00-0.03); Imm Gran Pct Auto 0.3 % (0.0-0.4); Lymphocytes Absolute Auto 1.7 X10*3/uL (1.2-4.9); Lymphocytes Percent Auto 27.4 % (20-40); Mean Corpuscular HGB Conc 32.8 g/dl (31.0-36.0); Mean Corpuscular Hemoglobin 29.5 pg (27.0-33.0); Mean Corpuscular Volume 90.1 fL (80.0-98.0); Mean Platelet Volume 10.2 fL (9.4-12.4); Monocytes Absolute Auto 0.5 X10*3/uL (0.1-1.2); Neutrophils Absolute Auto 3.8 x10*3/uL (2.0-8.3); Neutrophils Percent Auto 62.2 % (45-73); Platelet Count 218 X10*3/uL (160-400); Red Blood Count 4.74 X10*6/uL (4.60-5.80); Red Cell Distribution Width 13.1 % (11.0-16.0); White Blood Count 6.1 X10*3/uL (4.8-10.8)
[2022-04-26 13:46] LABS: INTERNATIONAL NORM RATIO 1.1 (0.9-1.1); Prothrombin Time 12.1 SEC (10.0-13.1)
[2022-04-26 14:05] LABS: Estimated Average Glucose 232 mg/dL; Hemoglobin A1c % 9.7 %
[2022-04-26 14:07] LABS: Anion Gap 14 (12-20); Blood Urea Nitrogen 17 mg/dL (9-16); Calcium 9.1 mg/dL (8.4-10.2); Carbon Dioxide 27 mmol/L (22-29); Chloride 105 mmol/L (96-108); Estimated Glomerular Filt Rate > 60; Glucose Random 231 mg/dL (60-115); Potassium 4.6 mmol/L (3.3-5.1); Sodium 141 mmol/L (135-145)
== END 2022-04-26 12:07 | disposition home or self-care (01) ==
LOC: HO.10HDL 12:06
PROVIDERS: Visit Provider Internal Medicine
DX: E11.9 Type 2 diabetes mellitus without complications (principal); M19.90 Unspecified osteoarthritis, unspecified site
CPT/HCPCS: 36415; 80048; 83036; 85025; 85610

== ENCOUNTER 2022-10-31 15:26 | Outpatient (REF) | payer MEDICARE, OTHER, SELFPAY ==
[2022-10-31 15:42] LABS: MANUAL DIFF FLAG NO
[2022-10-31 16:23] LABS: Basophils Percent Auto 0.4 % (0-2); Eosinophils Absolute Auto 0.1 X10*3/uL (0.0-0.4); Eosinophils Percent Auto 1.1 % (0-4); Hematocrit 43.7 % (42.0-52.0); Hemoglobin 14.3 g/dl (14.0-18.0); Imm Gran Abs Auto 0.02 X10*3/uL (0.00-0.03); Imm Gran Pct Auto 0.2 % (0.0-0.4); Lymphocytes Percent Auto 24.1 % (20-40); Mean Corpuscular HGB Conc 32.7 g/dl (31.0-36.0); Mean Corpuscular Volume 88.6 fL (80.0-98.0); Mean Platelet Volume 10.8 fL (9.4-12.4); Monocytes Absolute Auto 0.8 X10*3/uL (0.1-1.2); Monocytes Percent Auto 10.3 % (2-11); Neutrophils Absolute Auto 5.2 x10*3/uL (2.0-8.3); Neutrophils Percent Auto 63.9 % (45-73); Platelet Count 209 X10*3/uL (160-400); Red Blood Count 4.93 X10*6/uL (4.60-5.80); White Blood Count 8.1 X10*3/uL (4.8-10.8)
[2022-10-31 17:03] LABS: Estimated Average Glucose 235 mg/dL; Hemoglobin A1c % 9.8 %
[2022-10-31 18:05] LABS: Alanine Aminotransferase 29 U/L (0-40); Albumin Level 4.2 g/dL (3.5-5.0); Alkaline Phosphatase 133 U/L (39-117); Anion Gap 16 (12-20); Aspartate Amino Transferase 20 U/L (5-37); Bilirubin Total 0.7 mg/dL (0.0-1.0); Blood Urea Nitrogen 19 mg/dL (9-16); Calcium 9.3 mg/dL (8.4-10.2); Carbon Dioxide 24 mmol/L (22-29); Chloride 107 mmol/L (96-108); Cholesterol 148 mg/dL; Estimated Glomerular Filt Rate > 60; Glucose Random 143 mg/dL (60-115); Potassium 4.3 mmol/L (3.3-5.1); Sodium 143 mmol/L (135-145); Total Protein 6.9 g/dL (6.5-8.0)
[2022-10-31 18:10] LABS: Prostate Specific Antigen 0.98 ng/mL (<0.05-4.0)
== END 2022-10-31 15:27 | disposition home or self-care (01) ==
LOC: HO.LAB 15:26
PROVIDERS: PCP Internal Medicine; Visit Provider Internal Medicine
DX: E11.9 Type 2 diabetes mellitus without complications (principal); I10 Essential (primary) hypertension; N40.0 Benign prostatic hyperplasia without lower urinary tract symptoms; Z12.5 Encounter for screening for malignant neoplasm of prostate
CPT/HCPCS: 36415; 80053; 82465; 83036; 84153; 85025

== ENCOUNTER 2022-12-05 14:51 | Outpatient (REF) | payer MEDICARE, OTHER, SELFPAY ==
[2022-12-05 16:46] LABS: INTERNATIONAL NORM RATIO 1.1 (0.9-1.1); Prothrombin Time 12.3 SEC (10.0-13.1)
== END 2022-12-05 14:52 | disposition home or self-care (01) ==
LOC: HO.LAB 14:51
PROVIDERS: PCP Internal Medicine; Visit Provider Internal Medicine
DX: Z01.818 Encounter for other preprocedural examination (principal)
CPT/HCPCS: 36415; 85610

== ENCOUNTER 2023-02-19 12:49 | Outpatient (REF) | payer MEDICARE, OTHER, SELFPAY ==
[2023-02-19 13:46] LABS: INTERNATIONAL NORM RATIO 1.2 (0.9-1.1); Prothrombin Time 14.2 SEC (10.0-13.1)
== END 2023-02-19 12:50 | disposition home or self-care (01) ==
LOC: HO.10HDL 12:49
PROVIDERS: Visit Provider Internal Medicine
DX: E11.9 Type 2 diabetes mellitus without complications (principal); D68.51 Activated protein C resistance
CPT/HCPCS: 36415; 85610

== ENCOUNTER 2023-03-13 12:03 | Outpatient (REF) | payer MEDICARE, OTHER, SELFPAY ==
[2023-03-13 12:53] LABS: INTERNATIONAL NORM RATIO 1.7 (0.9-1.1); Prothrombin Time 21.1 SEC (11.1-13.3)
== END 2023-03-13 12:04 | disposition home or self-care (01) ==
LOC: HO.LAB 12:03
PROVIDERS: PCP Internal Medicine; Visit Provider Internal Medicine
DX: D68.51 Activated protein C resistance (principal)
CPT/HCPCS: 36415; 85610

== ENCOUNTER 2023-04-03 13:22 | Outpatient (REF) | payer MEDICARE, OTHER, SELFPAY ==
[2023-04-03 15:42] LABS: INTERNATIONAL NORM RATIO 2.3 (0.9-1.1); Prothrombin Time 27.6 SEC (11.1-13.3)
[2023-04-03 15:46] LABS: Estimated Average Glucose 166 mg/dL; Hemoglobin A1c % 7.4 % (<6.0)
[2023-04-03 16:34] LABS: Anion Gap 12 (12-20); Blood Urea Nitrogen 18 mg/dL (9-16); Calcium 10.4 mg/dL (8.4-10.2); Carbon Dioxide 27 mmol/L (22-29); Chloride 109 mmol/L (96-108); Estimated Glomerular Filt Rate > 60; Glucose Random 78 mg/dL (60-115); Potassium 3.9 mmol/L (3.3-5.1); Sodium 144 mmol/L (135-145)
== END 2023-04-03 13:23 | disposition home or self-care (01) ==
LOC: HO.LAB 13:22
PROVIDERS: PCP Internal Medicine; Visit Provider Internal Medicine
DX: E11.9 Type 2 diabetes mellitus without complications (principal); I10 Essential (primary) hypertension; I87.8 Other specified disorders of veins
CPT/HCPCS: 36415; 80048; 83036; 85610

== ENCOUNTER 2023-08-02 11:01 | Outpatient (REF) | payer MEDICARE, OTHER, SELFPAY ==
[2023-08-02 11:23] LABS: MANUAL DIFF FLAG NO
[2023-08-02 11:40] LABS: Basophils Percent Auto 0.5 % (0-2); Eosinophils Absolute Auto 0.2 X10*3/uL (0.0-0.4); Eosinophils Percent Auto 2.9 % (0-4); Hematocrit 44.1 % (42.0-52.0); Imm Gran Abs Auto 0.02 X10*3/uL (0.00-0.03); Imm Gran Pct Auto 0.3 % (0.0-0.4); Lymphocytes Absolute Auto 1.8 X10*3/uL (1.2-4.9); Lymphocytes Percent Auto 28.5 % (20-40); Mean Corpuscular HGB Conc 31.7 g/dl (31.0-36.0); Mean Corpuscular Hemoglobin 28.8 pg (27.0-33.0); Mean Corpuscular Volume 90.7 fL (80.0-98.0); Mean Platelet Volume 10.3 fL (9.4-12.4); Monocytes Absolute Auto 0.7 X10*3/uL (0.1-1.2); Monocytes Percent Auto 10.8 % (2-11); Neutrophils Absolute Auto 3.5 x10*3/uL (2.0-8.3); Platelet Count 181 X10*3/uL (160-400); Red Blood Count 4.86 X10*6/uL (4.60-5.80); White Blood Count 6.2 X10*3/uL (4.8-10.8)
[2023-08-02 12:23] LABS: Alanine Aminotransferase 35 U/L (0-40); Albumin Level 4.1 g/dL (3.5-5.0); Alkaline Phosphatase 126 U/L (39-117); Anion Gap 8 (12-20); Aspartate Amino Transferase 24 U/L (5-37); Bilirubin Total 0.3 mg/dL (0.0-1.0); Blood Urea Nitrogen 23 mg/dL (9-16); Calcium 9.3 mg/dL (8.4-10.2); Carbon Dioxide 28 mmol/L (22-29); Chloride 110 mmol/L (96-108); Cholesterol 123 mg/dL (<200); Estimated Glomerular Filt Rate > 60; Glucose Fasting 190 mg/dL (60-99); HDL Cholesterol 40 mg/dL (>40); LDL Cholesterol Calculated 63 mg/dL (<100); Potassium 4.1 mmol/L (3.3-5.1); Sodium 142 mmol/L (135-145); Total Protein 7.4 g/dL (6.5-8.0); Triglycerides 102 mg/dL (<150)
[2023-08-02 12:34] LABS: Prostate Specific Antigen Scr 1.06 ng/mL (<0.05-4.0)
[2023-08-02 12:41] LABS: Estimated Average Glucose 157 mg/dL; Hemoglobin A1c % 7.1 % (<6.0)
[2023-08-02 12:44] LABS: Thyroid Stimulating Hormone 0.75 uIU/mL (0.32-4.0)
[2023-08-02 13:03] LABS: Creatinine Urine 127.53 mg/dL
[2023-08-02 13:21] LABS: Microalbum/Creatinine Ratio Ur 525.3 ug/mg cr (<30)
== END 2023-08-02 11:02 | disposition home or self-care (01) ==
LOC: HO.LAB 11:01
PROVIDERS: PCP Internal Medicine; Visit Provider Internal Medicine
DX: E11.22 Type 2 diabetes mellitus with diabetic chronic kidney disease (principal); I12.9 Hypertensive chronic kidney disease with stage 1 through stage 4 chronic kidney disease, or unspecified chronic kidney disease; N18.9 Chronic kidney disease, unspecified; E78.00 Pure hypercholesterolemia, unspecified; Z79.4 Long term (current) use of insulin; Z12.5 Encounter for screening for malignant neoplasm of prostate
CPT/HCPCS: 36415; 80053; 80061; 82043; 82570; 83036; 84153; 84443; 85025

== ENCOUNTER 2023-12-11 10:57 | Outpatient (REF) | payer MEDICARE, OTHER, SELFPAY ==
[2023-12-11 13:27] LABS: MANUAL DIFF FLAG NO
[2023-12-11 13:39] LABS: Basophils Percent Auto 0.6 % (0-2); Eosinophils Absolute Auto 0.1 X10*3/uL (0.0-0.4); Eosinophils Percent Auto 1.4 % (0-4); Hematocrit 44.7 % (42.0-52.0); Hemoglobin 14.4 g/dl (14.0-18.0); Imm Gran Abs Auto 0.03 X10*3/uL (0.00-0.03); Imm Gran Pct Auto 0.4 % (0.0-0.4); Lymphocytes Absolute Auto 1.9 X10*3/uL (1.2-4.9); Lymphocytes Percent Auto 27.2 % (20-40); Mean Corpuscular HGB Conc 32.2 g/dl (31.0-36.0); Mean Corpuscular Hemoglobin 28.9 pg (27.0-33.0); Mean Corpuscular Volume 89.6 fL (80.0-98.0); Mean Platelet Volume 10.8 fL (9.4-12.4); Monocytes Absolute Auto 0.7 X10*3/uL (0.1-1.2); Monocytes Percent Auto 10.5 % (2-11); Neutrophils Absolute Auto 4.2 x10*3/uL (2.0-8.3); Neutrophils Percent Auto 59.9 % (45-73); Platelet Count 221 X10*3/uL (160-400); Red Blood Count 4.99 X10*6/uL (4.60-5.80); Red Cell Distribution Width 13.4 % (11.0-16.0)
[2023-12-11 13:49] LABS: Estimated Average Glucose 163 mg/dL; Hemoglobin A1c % 7.3 % (<6.0)
[2023-12-11 14:07] LABS: Alanine Aminotransferase 29 U/L (0-40); Albumin Level 4.2 g/dL (3.5-5.0); Alkaline Phosphatase 165 U/L (39-117); Anion Gap 11 (12-20); Aspartate Amino Transferase 19 U/L (5-37); Bilirubin Total 0.3 mg/dL (0.0-1.0); Blood Urea Nitrogen 28 mg/dL (9-16); Calcium 9.9 mg/dL (8.4-10.2); Carbon Dioxide 25 mmol/L (22-29); Chloride 108 mmol/L (96-108); Estimated Glomerular Filt Rate > 60; Glucose Random 217 mg/dL (60-115); Potassium 4.3 mmol/L (3.3-5.1); Sodium 140 mmol/L (135-145); Total Protein 7.6 g/dL (6.5-8.0)
[2023-12-11 14:19] LABS: Creatinine Urine 99.42 mg/dL; Microalbum/Creatinine Ratio Ur 272.5 ug/mg cr (<30)
== END 2023-12-11 10:58 | disposition home or self-care (01) ==
LOC: HO.10HDL 10:57
PROVIDERS: Visit Provider Internal Medicine
DX: M19.90 Unspecified osteoarthritis, unspecified site (principal); I10 Essential (primary) hypertension; E11.9 Type 2 diabetes mellitus without complications; E78.70 Disorder of bile acid and cholesterol metabolism, unspecified; Z79.4 Long term (current) use of insulin
CPT/HCPCS: 36415; 80053; 82043; 82570; 83036; 85025

== ENCOUNTER 2024-01-29 15:18 | Outpatient (REF) | payer MEDICARE, MEDICAID, SELFPAY | END 2024-01-29 15:19 | disposition home or self-care (01) | LOC: HO.LAB 15:18 | PROVIDERS: PCP Internal Medicine; Visit Provider Internal Medicine | DX: I48.91 Unspecified atrial fibrillation (principal) | CPT/HCPCS: 36415; 85610 ==

== ENCOUNTER 2024-02-25 10:03 | Outpatient (REF) | payer MEDICARE, MEDICAID, SELFPAY ==
[2024-02-25 10:47] LABS: Prothrombin Time 11.7 SEC (11.1-13.3)
== END 2024-02-25 10:04 | disposition home or self-care (01) ==
LOC: HO.LAB 10:03
PROVIDERS: PCP Internal Medicine; Visit Provider Internal Medicine
DX: I48.91 Unspecified atrial fibrillation (principal)
CPT/HCPCS: 36415; 85610

== ENCOUNTER 2024-04-10 10:58 | Outpatient (REF) | payer MEDICARE, MEDICAID, SELFPAY ==
[2024-04-10 13:09] LABS: MANUAL DIFF FLAG NO
[2024-04-10 13:13] LABS: Basophils Absolute Auto 0.1 X10*3/uL (0.0-0.2); Basophils Percent Auto 0.7 % (0-2); Eosinophils Absolute Auto 0.1 X10*3/uL (0.0-0.4); Hematocrit 45.3 % (42.0-52.0); Hemoglobin 14.8 g/dl (14.0-18.0); Imm Gran Abs Auto 0.01 X10*3/uL (0.00-0.03); Imm Gran Pct Auto 0.1 % (0.0-0.4); Lymphocytes Absolute Auto 1.5 X10*3/uL (1.2-4.9); Lymphocytes Percent Auto 21.5 % (20-40); Mean Corpuscular HGB Conc 32.7 g/dl (31.0-36.0); Mean Corpuscular Volume 91.7 fL (80.0-98.0); Mean Platelet Volume 10.6 fL (9.4-12.4); Monocytes Absolute Auto 0.7 X10*3/uL (0.1-1.2); Monocytes Percent Auto 9.5 % (2-11); Neutrophils Absolute Auto 4.7 x10*3/uL (2.0-8.3); Neutrophils Percent Auto 66.2 % (45-73); Platelet Count 184 X10*3/uL (160-400); Red Blood Count 4.94 X10*6/uL (4.60-5.80); Red Cell Distribution Width 13.6 % (11.0-16.0); White Blood Count 7.1 X10*3/uL (4.8-10.8)
[2024-04-10 13:29] LABS: Alanine Aminotransferase 30 U/L (0-40); Albumin Level 4.3 g/dL (3.5-5.0); Alkaline Phosphatase 129 U/L (39-117); Anion Gap 12 (12-20); Aspartate Amino Transferase 20 U/L (5-37); Bilirubin Total 0.4 mg/dL (0.0-1.0); Blood Urea Nitrogen 20 mg/dL (9-16); Calcium 9.7 mg/dL (8.4-10.2); Carbon Dioxide 29 mmol/L (22-29); Chloride 105 mmol/L (96-108); Estimated Glomerular Filt Rate > 60; Glucose Random 249 mg/dL (60-115); Potassium 4.7 mmol/L (3.3-5.1); Sodium 141 mmol/L (135-145); Total Protein 7.3 g/dL (6.5-8.0)
[2024-04-10 13:31] LABS: Estimated Average Glucose 180 mg/dL; Hemoglobin A1c % 7.9 % (<6.0)
[2024-04-10 13:59] LABS: Creatinine Urine 58.24 mg/dL; Microalbum/Creatinine Ratio Ur 858.5 ug/mg cr (<30)
[2024-04-10 14:01] LABS: Vitamin B12 232 pg/mL (200-900)
== END 2024-04-10 10:59 | disposition home or self-care (01) ==
LOC: HO.10HDL 10:58
PROVIDERS: Visit Provider Internal Medicine
DX: I12.9 Hypertensive chronic kidney disease with stage 1 through stage 4 chronic kidney disease, or unspecified chronic kidney disease (principal); E11.22 Type 2 diabetes mellitus with diabetic chronic kidney disease; N18.9 Chronic kidney disease, unspecified; G62.9 Polyneuropathy, unspecified
CPT/HCPCS: 36415; 80053; 82043; 82570; 82607; 83036; 85025

== ENCOUNTER 2024-06-18 15:39 | Outpatient (REF) | payer MEDICARE, OTHER, SELFPAY ==
--- NOTE | ~2024-06-18 | XR_ITS ---
EXAMINATION: XR HAND, LEFT CLINICAL INFORMATION: Pain COMPARISON: None available. TECHNIQUE: PA, lateral, and oblique views of the left hand. FINDINGS: Sclerosis and asymmetric joint space narrowing involving the proximal and distal interphalangeal joints of the digits. No acute cortical disruption or malalignment. Vascular desiccation's. No subcutaneous emphysema. XR/XR hand LT min 3V IMPRESSION: Osteoarthrosis. No acute fracture or dislocation. Atherosclerosis disease, peripheral. Electronically signed by: Olvin Owens MD 06/19/2024 08:05 AM SHIKHA CEBALLOS
--- NOTE | ~2024-06-18 | XR_ITS ---
EXAMINATION: XR SHOULDER, RIGHT CLINICAL INFORMATION: Pain COMPARISON: X-ray dated November 19, 2019 TECHNIQUE: AP external rotation, Grashey, scapular Y, and axillary views of the right shoulder. FINDINGS: Degenerative changes in the acromioclavicular joint with chronic upward subluxation. Degenerative changes in the glenohumeral joint. No acute cortical disruption. No malalignment at the glenohumeral joint. XR/XR shoulder RT min 2V IMPRESSION: Old traumatic deformity resulting in upward subluxation], clinical history joint. Osteoarthrosis. Electronically signed by: Olvin Owens MD 06/19/2024 08:04 AM SHIKHA CEBALLOS
== END 2024-06-18 15:40 | disposition home or self-care (01) ==
LOC: HO.XRAY 15:39
PROVIDERS: PCP Internal Medicine; Visit Provider Internal Medicine
DX: M25.511 Pain in right shoulder (principal); M79.642 Pain in left hand
CPT/HCPCS: 73030; 73130

== ENCOUNTER → 2024-06-18 15:49 | Outpatient (BNV) | payer MEDICARE, MEDICAID, SELFPAY | PROVIDERS: PCP Internal Medicine; Visit Provider Radiology Diagnostic Radiology | DX: M25.511 Pain in right shoulder (principal); M79.641 Pain in right hand | CPT/HCPCS: 73030; 73130 ==

== ENCOUNTER 2024-07-11 10:30 | Day surgery (SDC) | payer MEDICARE, MEDICAID, SELFPAY ==
[2024-07-09 15:02] VITALS: BMI 30.4
--- NOTE | 2024-07-10 09:43 | P.CONAN_ITS ---
Documented by User: Genny Watkins NP 07/10/24 09:44 HPI - Anesthesia Eval Consult details Narrative: 69yo M for Colonoscopy Warfarin for Factor V / DVT PMFSH Active Problems Active Problems: All Active Problems Separation of right acromioclavicular joint (Acute) Right shoulder pain (Acute) Diabetic neuropathy (Acute) Balance problem (Acute) Localized osteoarthritis of knees, bilateral (Acute) Past Medical History Medical History History of unsteady gait History of fractured rib Back pain Factor V deficiency Diabetes DVT (deep venous thrombosis) History of renal stone On anticoagulant therapy Elevated cholesterol Surgical History Surgical History History of testicular surgery Hx of elbow surgery Hx of colonoscopy (~06/2020) History of total left hip replacement H/O cervical discectomy (~2018) Social History Social History Patient Tobacco Use Status: Never used Tobacco Use of substances other than those prescribed or required for medical reasons: Yes Advance Directives: No Advance Directives Information Provided: Yes Recently lost weight without trying: No Nutrition Risks: No Nutritional Risk Current occupational status: employed 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 Allergies Allergy/AdvReac Type Severity Reaction Status Date / Time latex AdvReac Itching Verified 06/09/21 11:11 Home Medications ?Medication ?Instructions ?Recorded ?Confirmed ?Last Taken ?Type atorvastatin 20 mg tablet 20 mg PO DAILY 06/14/20 07/09/24 Unknown History glipizide 5 mg tablet 10 mg PO BID 06/14/20 07/09/24 Unknown History lisinopril 5 mg tablet 5 mg PO DAILY 06/14/20 07/09/24 Unknown History warfarin 5 mg tablet 5 mg PO DAILY 06/14/20 06/14/20 Unknown History insulin glargine 100 unit/mL (3 25 unit subcut BID 07/11/24 07/11/24 Unknown History mL) subcutaneous pen (Basaglar KwikPen U-100 Insulin) Exam Height,Weight and Vital Signs: Height 5 ft 11 in Weight 98.883 kg Assessment and Plan Assessment Anesthesia Assessment: Chart Reviewed Documented by User: Keely Phillips MD 07/11/24 11:24 [facility] Past Medical History Medical History History of unsteady gait History of fractured rib Back pain Factor V deficiency Diabetes DVT (deep venous thrombosis) History of renal stone On anticoagulant therapy Elevated cholesterol Surgical History Surgical History History of testicular surgery Hx of elbow surgery Hx of colonoscopy (~06/2020) History of total left hip replacement H/O cervical discectomy (~2018) History of Problems with Anesthesia: No Social History Social History Patient Tobacco Use Status: Never used Tobacco Use of substances other than those prescribed or required for medical reasons: Yes Advance Directives: No Advance Directives Information Provided: Yes Recently lost weight without trying: No Nutrition Risks: No Nutritional Risk Current occupational status: employed 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 Allergies Allergy/AdvReac Type Severity Reaction Status Date / Time latex AdvReac Itching Verified 06/09/21 11:11 Home Medications ?Medication ?Instructions ?Recorded ?Confirmed ?Last Taken ?Type atorvastatin 20 mg tablet 20 mg PO DAILY 06/14/20 07/09/24 Unknown History glipizide 5 mg tablet 10 mg PO BID 06/14/20 07/09/24 Unknown History lisinopril 5 mg tablet 5 mg PO DAILY 06/14/20 07/09/24 Unknown History warfarin 5 mg tablet 5 mg PO DAILY 06/14/20 06/14/20 Unknown History insulin glargine 100 unit/mL (3 25 unit subcut BID 07/11/24 07/11/24 Unknown History mL) subcutaneous pen (Basaglar KwikPen U-100 Insulin) Exam Airway Mallampati Class: III TM Dist: >3cm Neck ROM: Full Loose/Missing/Broken Teeth: No Heart: RRR Lungs: CTA Assessment and Plan Assessment Anesthesia Assessment: Anesthesia Plan Discussed Final Anesthetic Review History of Problems with Anesthesia: No NPO: Yes ASA Class: III Final Preanesthetic Review: Meds/Allgs Chart Reviewed, Consent Obtained/Reviewed and Anes Risks/Benef Reviewed Patient Risk: Intermediate Procedure Risk: Low Anesthetic Plan Anesthetic Plan: MAC: Disposition: Standard PACU
[2024-07-11 10:47] VITALS: BMI 29.9
--- NOTE | 2024-07-11 10:54 | PC.NURSE ---
labs being drawn
[2024-07-11 11:04] VITALS: BP 154/71; PULSE 63; RESP 16; TEMP 36.2
[2024-07-11 11:08] LABS: Prothrombin Time 11.7 SEC (10.9-12.4)
[2024-07-11 11:15] LABS: Glucose, Whole Blood 110 mg/dL (60-115)
[2024-07-11] MEDS: Lactated Ringers 1,000 ML 100 ML IVCONT (11:22)
--- NOTE | 2024-07-11 11:22 | MHC.SHP ---
Pre-Procedural Eval Section A - 24 Hr Update-Section A only Date of Service: 07/11/24 Section B - Complete if H&P > 30 days Chief Complaint: Other fecal abnormalities Details of Present Illness: see H&P no changes Relevant Family History (Specify if Yes): No Relevant Social History: None Present Medications: see Short Stay Collaborative assessment Medical History: No relevant PMH History of Previous Operations: No relevant previous surgery Allergies: Allergies Allergy/AdvReac Type Severity Reaction Status Date / Time latex AdvReac Itching Verified 06/09/21 11:11 Review of Systems Sugical H&P ROS: Negative: Constitution, Cardiovascular, Respiratory, Neurological, Psychiatric, Hem-Onc, Allergic/Immunologic, Gastrointestinal, Genitourinary, Musculoskeletal, Integumentary, Endocrine and Eyes/Ears/Nose/Throat Exam Surgical H&P Exam: Normal: HEENT, Normal: Heart, Normal: Lungs, Normal: Extremities, Normal: Abdomen, Normal: Skin and Normal: Neurological Plan Diagnosis/Plan: Unchanged I have reviewed the history and physical and performed a pertinent physical examination on my patient. No changes have occurred unless specified. Time Spent With Patient Time: Total time managing care of this patient today ____ minutes.
[2024-07-11 12:30] VITALS: BP 120/67; PULSE 56; RESP 12; TEMP 36.1; O2SAT 97
--- NOTE | 2024-07-11 12:42 | OP_ITS ---
DATE OF SERVICE: 07/11/2024 SURGEON: Vick Schuster MD INDICATIONS: Personal history of colon polyps and abnormal findings in stool. PREOPERATIVE DIAGNOSIS: POSTOPERATIVE DIAGNOSIS: PROCEDURE PERFORMED: Colonoscopy to the terminal ileum with snare polypectomy. ESTIMATED BLOOD LOSS: COMPLICATIONS: ANESTHESIA: Monitored anesthesia care. ASSISTANTS: SPECIMENS: DESCRIPTION OF PROCEDURE: A history and physical was performed. The risks and benefits of the procedure were explained to the patient and informed consent was obtained. The patient was placed in the left lateral decubitus position. The Olympus pediatric video colonoscope was introduced into the rectum after digital rectal examination was performed and was found to be normal. The scope was advanced to the cecum. The cecum was identified by transillumination, palpation, and identification of the ileocecal valve. Examination was performed. The scope was removed. He tolerated the procedure well and was returned to the recovery area in stable condition. FINDINGS: The terminal ileum was examined and appeared normal. The visualized colonic mucosa was within normal limits. There was some liquid stool left, which limited the sensitivity examination for detection of small polyps. This was washed and suctioned. At 70 cm from the anal verge was a less than 10 mm polyp, which was removed with a cold snare and recovered via suction. No other polyps were identified. Retroflexed examination showed some small internal hemorrhoids. IMPRESSION: Colon polyp. RECOMMENDATION: 1. Follow up the biopsy results. 2. Restart Coumadin in a.m. MD DAVID Pena/LEOPOLDOL / [id number]
[2024-07-11 12:45] VITALS: BP 158/86; PULSE 56; RESP 12; TEMP 36.1; O2SAT 97
== END 2024-07-11 13:39 | disposition home or self-care (01) ==
PROVIDERS: Nurse Practitioner; PCP Internal Medicine; Visit Provider Internal Medicine Gastroenterology
PROC: 0DJD8ZZ Inspection of Lower Intestinal Tract, Via Natural or Artificial Opening Endoscopic (ICD-10-PCS; CPT 45378; principal; 2024-07-11 11:50)
DX: R19.5 Other fecal abnormalities (principal); D12.4 Benign neoplasm of descending colon; K64.8 Other hemorrhoids; Z86.0101 Personal history of adenomatous and serrated colon polyps; E11.9 Type 2 diabetes mellitus without complications; E78.5 Hyperlipidemia, unspecified; Z86.718 Personal history of other venous thrombosis and embolism; Z79.01 Long term (current) use of anticoagulants
CPT/HCPCS: 45385; 36415; 82947; 85610; 88305; J2003; J2704

== ENCOUNTER 2024-09-02 12:39 | Outpatient (REF) | payer MEDICARE, SELFPAY ==
[2024-09-02 13:26] LABS: Estimated Average Glucose 180 mg/dL; Hemoglobin A1C 247.3254 umol/L; Hemoglobin A1c % 7.9 % (<6.0)
[2024-09-02 13:30] LABS: Anion Gap 10 (12-20); Blood Urea Nitrogen 18 mg/dL (9-16); Calcium 9.3 mg/dL (8.4-10.2); Carbon Dioxide 27 mmol/L (22-29); Chloride 107 mmol/L (96-108); Estimated Glomerular Filt Rate > 60; Glucose Random 243 mg/dL (60-115); Potassium 4.3 mmol/L (3.3-5.1); Sodium 140 mmol/L (135-145)
--- OUTSIDE RECORDS SUMMARY | 2024-09-02 13:31 | XMS_ITS | Clinical Summary ---
Author Organization [employer] Address [address] [place] [address] [address] [place] [address] Care Team Providers Care Oil Well Drilling Manager Name Role Phone Unavailable Primary Care Provider Unavailabl e Allergies No known active allergies Medications atorvastatin (Lipitor) 20 MG tablet Take 20 mg by mouth in the morning. 3 Active glipiZIDE (Glucotrol) 5 MG tablet Take 10 mg by mouth 2 times daily. 3 Active warfarin (Coumadin) 5 MG tablet TAKE 1 & 1/2 TO 2 TABLETS BY MOUTH EVERY DAY Active lisinopril 5 MG tablet Take 1 tablet by mouth in the morning. Active insulin glargine (Lantus) 100 UNIT/ML injection INJECT 80 UNIT SUBCUTANEOUSLY ONCE A DAY Active Levemir 100 UNIT/ML injection INJECT 25 UNITS SUBCUTANEOUSLY ONCE A DAY 3 Active warfarin (Coumadin) 1.5 MG split tablet Take 1 tablet by mouth at bed time. Active chlorhexidine (Peridex) 0.12 % solutionIndica tions:Periodon kade abscess SWISH 15 ML MORNING AND NIGHT FOR 1 MINUTE. SPIT, DO NOT SWALLOW. NO FOOD/DRINK FOR 30 MINUTES AFTER 473 mL 4 Active methylPREDNISo lone (Medrol Dospak) 4 MG tablets TAKE PER PACKAGE DIRECTIONS 4 Active Active Problems No known active problems Encounters Date Type Department Care Team Description 08/29/2024 10:00 AM EST Office Visit [facility] [address] [place] [address] Paige Childs 07/06/2024 Refill [facility] [address] [place] [address] Chase Duggan, DMD Periodontal abscess from Last 3 Months Social History Tobacco Use Types Packs/Day Years Used Date Smoking Tobacco: Never Smokeless Tobacco: Never Alcohol Use Standard Drinks/Week Comments Defer 0 (1 standard drink = 0.6 oz pur e alcohol) Sex and Gender Information Value Date Recorded Sex Assigned at Male 06/05/2022 10:23 AM EDT Legal Sex Male 10:23 AM EDT Gender Identity Choose not to disclose 10:23 AM EDT Sexual Orientation Choose not to disclose 2021 10:23 AM EDT Last Filed Vital Signs Vital Sign Reading Time Taken Comments Blood Pressure 142/86 08/29/2024 10:05 AM EST Pulse 65 02/26/2024 8:08 AM EDT Temperature - - Respiratory Rate - - Oxygen Saturation - - Inhaled Oxygen Concentration - - Weight - - Height - - Body Mass Index - - Plan of Treatment Upcoming Encounters Date Type Department Care Team (Late st Contact Info) Description 09/12/2024 10:30 AM EST Office Visit [facility] [address] [place] [address] Carlos Andrewsprecasper [address] [place] [address] Health Maintenance Due Date Last Done Comments CT Colonography 1955 Colonoscopy 1955 Depression Screening 1955 FIT 1955 FOBT 1955 Lipid Panel 1955 SDOH Screening 1955 Sigmoidoscopy 1955 Alcohol/Substance Use Screening 1965 Hepatitis C Screening 1971 DTaP/Tdap/Td Vaccines (1 - Tdap) 1972 Zoster Vaccines (1 of 2) 2003 Pneumococcal Vaccine: 65+ Years (1 of 1 - PCV) 2018 COVID-19 Vaccine ( - season) 2024 06/21/2022, 06/09/2021, 11/16/2020, Additional history exists Influenza Vaccine (#1) 2024 , 05/11/2020, 04/06/2019, Additional history exists Dental Oral Exam 02/27/2025 08/29/2024, 03/03/2024 Dental Prophylaxis 02/27/2025 08/29/2024, 0 02/26/2024, 02/20/2023 Dental X-Ray: Bitewings 05/07/2025 05/06/20, 02/26/2024, 07/24/2023, Additional history exists Tobacco Screening 08/29/2025 08/29/2024 Dental X-Ray: Full Mouth 03/25/2027 03/24/2024, 02/04 Colorectal Cancer Screening 06/02/2027 FIT DNA/Cologuard 06/02/2027 06/02/2024 RSV Patients and Patients Aged 60 years or older (1 - 1-dose 75+ series) 2028 HIB Vaccines Aged Out No longer eligi ble based on patient's age to complete this topic HPV Vaccines Aged Out No longer eligi ble based on patient's age to complete this topic Hepatitis A Vaccines Aged Out No long er eligible based on patient's age to complete this topic Hepatitis B Vaccines Aged Out No long er eligible based on patient's age to complete this topic IPV Vaccines Aged Out No longer eligi ble based on patient's age to complete this topic Meningococcal Vaccine Aged Out No viral mainor eligible based on patient's age to complete this topic RSV under 20 months Aged Out No longe r eligible based on patient's age to complete this topic Rotavirus Vaccines Aged Out No longer eligible based on patient's age to complete this topic Procedures Procedure Name Priority Date/Time Associated Diagnosis Comments PERIODIC ORAL EVALUATION - ESTABLISHED PATIENT Routine 08/29/2024 10:00 AM EST ORAL HYGIENE INSTRUCTIONS Routine 2024 10:00 AM EST ADJUNCTIVE GENERAL SERVICES - PROFESSIONAL VISITS - CASE PRESENTATION, SUBSEQUENT TO DETAILED AND EXTENSIVE TREATMENT PLANNING Routine 08/29/2024 10:00 AM EST PROPHYLAXIS - ADULT Routine 08/29/2024 1 0:00 AM EST BITEWING - SINGLE RADIOGRAPHIC IMAGE Routine 05/06/2024 11:30 AM EDT PANORAMIC RADIOGRAPHIC IMAGE Routine 03/24/2024 9:00 AM EDT from Last 3 Months or Most Recently Relevant to Health Maintenance Insurance DENTAL - HSN FULL (MEDICAID)
--- OUTSIDE RECORDS SUMMARY | 2024-09-02 13:32 | XMS_ITS | Clinical Summary ---
Author Organization [facility] Address [address] [place] [address] Care Team Providers Care Therapy Site Coordinator Name Role Phone Bala Waterman MD Primary Care Provider [phone] Social History Tobacco Use Types Packs/Day Years Used Date Smoking Tobacco: Never Assessed Sex and Gender Information Value Date Recorded Sex Assigned at Not on file Gender Identity Not on file Sexual Orientation Not on file Plan of Treatment Health Maintenance Due Date Last Done Comments Hepatitis C Screening 1955 COVID-19 Vaccine (#1) 1953 Depression Screening 1965 Preventative Health Evaluation 1971 DTap / Tdap / Td (1 - Tdap) 1972 Colon Cancer Screening (Colonoscopy) 1998 Shingrix-Zoster Vaccine (1 of 2) 2003 Fall Risk Assessment 2018 Pneumococcal Vaccine (1 of 1 - PCV) 2018 Influenza Vaccine (#1) 2024 RSV Adult > 60+ Yrs or Pregn ant (1 - 1-dose 75+ series) 2028 Hepatitis B Vaccines Aged Out No long er eligible based on patient's age to complete this topic RSV Ped < 20 months Aged Out No longe r eligible based on patient's age to complete this topic Care Teams Therapy Site Coordinator Relationship Specialty Start Date End Date Bala Waterman MD [address] [place] [address] [address] [place] [address] PCP - General Pump Tender 03/31/19
--- OUTSIDE RECORDS SUMMARY | 2024-09-02 13:32 | XMS_ITS | Encounter Summary ---
Author Organization [employer] Address [address] [place] [address] [address] [place] [address] Care Team Providers Care Property Administrator Name Role Phone Unavailable Primary Care Provider Unavailabl e Reason for Visit * Reason Comments Med Refill Encounter Details Date Type Department Care Team (Late st Contact Info) Description 07/06/2024 Refill [facility] [address] [place] [address] Chase Duggan DMD [address] [place] [address] Periodontal abscess Social History Tobacco Use Types Packs/Day Years Used Date Smoking Tobacco: Never Smokeless Tobacco: Never Sex and Gender Information Value Date Recorded Sex Assigned at Male 06/05/2022 10:23 AM EDT Legal Sex Male 10:23 AM EDT Gender Identity Choose not to disclose 10:23 AM EDT Sexual Orientation Choose not to disclose 2021 10:23 AM EDT documented as of this encounter Miscellaneous Notes * Telephone Encounter - Chase Duggan DMD - 07/07/2024 7:49 AM EST Approving, but needs appt for additional refills. documented in this encounter Plan of Treatment Upcoming Encounters Date Type Department Care Team (Late st Contact Info) Description 09/12/2024 10:30 AM EST Office Visit [facility] [address] [place] [address] Dank Andrews [address] [place] [address] documented as of this encounter Visit Diagnoses Diagnosis Periodontal abscess Aggressive periodontitis, localized documented in this encounter
--- OUTSIDE RECORDS SUMMARY | 2024-09-02 13:32 | XMS_ITS | Patient Health Record ---
Author Organization [facility] Address [address] [place] [address] Care Team Providers Care Real Time Operator Name Role Phone Bala Waterman MD Primary Care Provider Vick Lay Jr Unavailable [phone] ALLERGIES No Known Allergies RESULTS Component Value Reference Range Notes Prothrombin Time INR Reviewed date:07/11/2024 03:00:05 PM Interpretation: Performing Lab:[facility], [address] [place] [phone] Notes/Report: Prothrombin Time 11.7 10.9-12.4 SEC INTERNATIONAL NORM RATIO 1.0 0.9-1.1 INTERNATIONAL NORMALIZED RATIO (INR) REFERENCE RANGES Reference Range For patients not on anticoagulant therapy: 0.9 - 1.1 INR ranges for oral anticoagulant therapy: For prevention and treatment of venous thrombosis and pulmonary embolism: 2.0 - 3.0 For acute myocardial infarction with aspirin therapy: 2.0 - 3.0 For acute myocardial infarction without aspirin therapy: 3.0 - 4.0 For patients with mechanical prosthetic heart valves: 2.5 - 3.5 Glucose, Whole Blood Reviewed date:07/11/2024 03:00:01 PM Interpretation: Performing Lab:[facility], [address] [place] [phone] Notes/Report: Glucose, Whole Blood 110 60-115 mg/dL METER # : [id number] Pathology Reviewed date:07/16/2024 08:36:50 AM Interpretation: Performing Lab:[facility], [address] [place] [phone] Notes/Report: REASON FOR REFERRAL No Information MEDICATIONS Medication SIG (Take, Route, Frequency, Duration) Notes Start Date End Date Status Lisinopril 5 MG TAKE 1 TABLET BY PA TH EVERY DAY Oral for 90 Active glipiZIDE 5 MG TAKE 2 TABLETS BY MO UTH TWICE DAILY Oral for 90 Active Atorvastatin Calcium 20 MG TAKE 1 TABLET BY MOUTH ONCE DAILY Oral for 90 Active Warfarin Sodium 5 MG TAKE 1 & 1/2 TO 2 T ABLETS BY MOUTH EVERY DAY Oral for 90 Active MiraLax (colon prep) 8.3 ounce ((238) grams mixed with Gatorade or Crystal Light orally begin at 5:00 p.m. the day before the procedure for 1 day 11/12/2019 Active IMMUNIZATIONS Vaccine Route Administration Date Status Comme nts Influenza Unknown 04/06/2019 Administered SOCIAL HISTORY Tobacco Use: Social History Observation Description Date Details (start date - stop date) Never Smoker NA - NA Sex Assigned At : Social History Observation Description Sex Assigned At Unknown Tobacco Use/Smoking Question Answer Notes Patient is a nonsmoker Alcohol Screen Question Answer Notes Did you have a drink containing alcohol in the p ast year? 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) Active confirmed 136271129056628 Problem Abnormal findings in stool (R19.5) Active confirmed 308760482 Problem Personal history of colonic polyps (Z86.0100) Active confirmed 312034265 VITAL SIGNS Blood pressure diastolic 00 mm Hg 06/12/2024 Height 71 in 06/12/2024 Blood pressure systolic 00 mm Hg 06/12/2024 Weight 218 lbs 06/12/2024 BMI 30.40 kg/m2 06/12/2024 Encounters Encounter Location Date Provider Diagnosis [facility] [address] [place] [address] 06/12/2024 Vick Schuster Jr Abnormal findings in stool R19.5 ; Personal history of colonic polyps Z86.0100 and correction (current) use of anticoagulants Z79.01 [facility] [address] [place], [place] [phone] 07/11/2024 Vick Schuster Jr Colon polyps K63.5 ; Heme positive stool R19.5 and Personal history of colonic polyps Z86.0100 [facility] [address] [place] [address] 07/02/2024 Vick Schuster Jr [facility] [address] [place] [address] 07/16/2024 Vick Schuster Jr ASSESSMENTS Encounter Date Diagnosis Assessment Notes Treatment Notes Treatment Clinical Notes 06/12/2024 Abnormal findings in stool (ICD-10 - R19.5) Colonoscopy material was printed 06/12/2024 Personal history of colonic polyps (ICD-10 - Z86.0100) 07/11/2024 Colon polyps (ICD-10 - K63.5) 07/11/2024 Heme positive stool (ICD-10 - R19.5) 06/12/2024 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 (ICD-10 - Z79.01) 07/11/2024 Personal history of colonic polyps (ICD-10 - Z86.0100) PLAN OF TREATMENT Future Test Test Name Order Date COLONOSCOPY 11/12/2019 COLONOSCOPY 06/12/2024 Insurance Providers Payer Name Payer Address Payer Phone Subscriber Number Group Number Insured Name Patient Relationship to Insured Coverage Start Date Coverage End Date [facility] [address] [place], [place] [id number] SVETLANA NUR Self - patient is the insured MEDICAL (GENERAL) HISTORY Medical History History ICD Code type II diabetes factor V deficiency nephrolithiasis mechanical fall x2 due to unsteady gait Colonoscopy in 06/25, multiple tubular a denomas, three-year followup Surgical History Surgery Date(Month/Year) neck surgery removed partial disc - fell in fall 2018 w/broken ribs 04/2019 hip replacement elbow surgery
--- OUTSIDE RECORDS SUMMARY | 2024-09-02 13:32 | XMS_ITS ---
Author Organization [facility] Address [address] [place] [address] Care Team Providers Care Coal Screener Name Role Phone Bala Waterman MD Primary Care Provider Vick Lay Jr Unavailable REASON FOR VISIT positive cologuard Encounters Encounter Location Date Provider Diagnosis [facility] [address] [place] [phone] 07/11/2024 Vick Schuster Jr Colon polyps K63.5 ; Heme positive stool R19.5 and Personal history of colonic polyps Z86.0100 ASSESSMENTS Encounter Date Diagnosis Assessment Notes Treatment Notes Treatment Clinical Notes 07/11/2024 Colon polyps (ICD-10 - K63.5) 07/11/2024 Heme positive stool (ICD-10 - R19.5) 07/11/2024 Personal history of colonic polyps (ICD-10 - Z86.0100) PLAN OF TREATMENT No Information
--- OUTSIDE RECORDS SUMMARY | 2024-09-02 13:32 | XMS_ITS | Encounter Summary ---
Author Organization [employer] Address [address] [place] [address] [address] [place] [address] Care Team Providers Care Feeder Associate Name Role Phone Unavailable Primary Care Provider Unavailabl e Encounter Details Date Type Department Care Team (Latest Contact Info) Description 09/20/2021 [facility] Dental, Provider, DDS Social History Tobacco Use Types Packs/Day Years Used Date Smoking Tobacco: Never Assessed Sex and Gender Information Value Date Recorded Sex Assigned at Male 06/05/2022 10:23 AM EDT Legal Sex Male 10:23 AM EDT Gender Identity Choose not to disclose 10:23 AM EDT Sexual Orientation Choose not to disclose 2021 10:23 AM EDT documented as of this encounter Plan of Treatment Upcoming Encounters Date Type Department Care Team (Late st Contact Info) Description 09/12/2024 10:30 AM EST Office Visit [facility] [address] [place] [address] Dank Andrews [address] [place] [address] documented as of this encounter Visit Diagnoses Not on filedocumented in this encounter
--- OUTSIDE RECORDS SUMMARY | 2024-09-02 13:32 | XMS_ITS ---
Author Organization [facility] Address [address] [place] [address] Care Team Providers Care Irrigation Flume Layer Name Role Phone Bala Waterman MD Primary Care Provider Vick Lay Jr Unavailable [phone] REASON FOR VISIT pathology Encounters Encounter Location Date Provider Diagnosis [facility] [address] [place] [address] 07/16/2024 Vick Schuster Jr PLAN OF TREATMENT No Information
--- OUTSIDE RECORDS SUMMARY | 2024-09-02 13:32 | XMS_ITS ---
Author Organization [facility] Address [address] [place] [address] Care Team Providers Care Histotechnician Name Role Phone Bala Waterman MD Primary Care Provider UnavailVick Guillaume Jr Unavailable REASON FOR VISIT starting on methylprednisolone Encounters Encounter Location Date Provider Diagnosis [facility] [address] [place] [address] 07/02/2024 Vick Schuster Jr PLAN OF TREATMENT No Information
--- OUTSIDE RECORDS SUMMARY | 2024-09-02 13:32 | XMS_ITS | Encounter Summary ---
Author Organization [employer] Address [address] [place] [address] [address] [place] [address] Care Team Providers Care Hide Salter Name Role Phone Unavailable Primary Care Provider Unavailabl e Reason for Visit * Reason Comments Routine Cleaning Dental Exam Encounter Details Date Type Department Care Team ([facility] st Contact Info) Description 08/29/2024 10:00 AM EST Office Visit [facility] [address] [place] [address] Paige Childs Social History Tobacco Use Types Packs/Day Years [...] AM EDT documented as of this encounter Last Filed Vital Signs Vital Sign Reading Time Taken Comments Blood Pressure 142/86 08/29/2024 10:05 AM EST Pulse - - Temperature - - Respiratory Rate - - Oxygen Saturation - - Inhaled Oxygen Concentration - - Weight - - Height - - Body Mass Index - - documented in this encounter Progress Notes * Paige Childs - 08/29/2024 10:00 AM EST Patient ID: Shawn Myrick is a 69 y.o. adult. Time Out: Timeout Date: 08/29/24, Timeout Time: 1009 Location: [facility] Tooth: Maxilla and Mandible Procedure: Exam and Prophylaxis Verified the above with patient, assistant to the dean, and provider. Confirmed via patient's chart, intraorally and by radiographs. Java Groovy Developer: not applicable Medical Hx: Vitals: Blood pressure (!) 142/86. Medications, Med Hx reviewed with patient and updated in chart. Treatment Provided Dental procedures in this visit D1110 - PROPHYLAXIS - ADULT (Completed) Service provider: Paige Norton provider: Dank Andrews [id number] - ADJUNCTIVE GENERAL SERVICES - PROFESSIONAL VISITS - CASE PRESENTATION, SUBSEQUENT TO DETAILED AND EXTENSIVE TREATMENT PLANNING (Completed) Service provider: Paige Norton provider: Dank Andrews [id number] - ORAL HYGIENE INSTRUCTIONS (Completed) Service provider: Paige Norton provider: Dank Andrews Instruments Used: Ultrasonic Scalers, Hand Scalers, and Prophy angle Fluoride: N/A Oral Cancer Screening: No lesions Head/Neck Exam: No Lesions Calculus: Heavy and Generalized Plaque: Moderate and Generalized Stain: Heavy and Generalized Bleeding: Light and Generalized Gingiva: Recession- generalized and Erythematous [place]: Poor Perio Chart: Completed Dental exam done by Dr. Andrews. Oral hygiene instructions provided to patient including brushing technique and flossing. Recommendations: [place] two times daily, modified borges technique, Floss daily, Electric toothbrush, Soft bristle toothbrush, [place] Tongue, Anti-sensitivity toothpaste Recall Frequency: 6 mo NV: Consult & Restorations Hygienist: Paige Childs RDH * Dank Andrews - 08/29/2024 10:00 AM EST Images from the original note were not included. Dental procedures in this visit D1110 - PROPHYLAXIS - ADULT (Completed) Service provider: Paige Norton provider: Dank Andrews [id number] - ADJUNCTIVE GENERAL SERVICES - PROFESSIONAL VISITS - CASE PRESENTATION, SUBSEQUENT TO DETAILED AND EXTENSIVE TREATMENT PLANNING (Completed) Service provider: Paige Norton provider: Dank Andrews [id number] - ORAL HYGIENE INSTRUCTIONS (Completed) Service provider: Paige Norton provider: Dank Andrews [id number] - PERIODIC ORAL EVALUATION - ESTABLISHED PATIENT (Completed) Service provider: Dank Norton provider: Dank Andrews Patient ID: Shawn Myrick is a 69 y.o. adult. Time Out: Timeout Date: 08/29/24, Timeout Time: 1009 Location: [facility] Tooth: Maxilla and Mandible Procedure: Exam Verified the above with patient, assistant to the dean, and provider. Confirmed via patient's chart, intraorally and by radiographs. Java Groovy Developer: not applicable Chief Complaint Patient presents with Routine Cleaning Dental Exam Medical Hx: Vitals: Blood pressure (!) 142/86. Past Medical History: Diagnosis Date Arthritis Diabetes mellitus ([facility]) GERD (gastroesophageal reflux disease) High cholesterol Hypertension Medications: Outpatient Encounter Medications as of 08/29/2024 Medication Sig Dispense Refill atorvastatin (Lipitor) 20 MG tablet Take 20 mg by mouth in the morning. chlorhexidine (Peridex) 0.12 % solution SWISH 15 ML MORNING AND NIGHT FOR 1 MINUTE. SPIT, DO NOT SWALLOW. NO FOOD/DRINK FOR 30 MINUTES AFTER 473 mL 0 glipiZIDE (Glucotrol) 5 MG tablet Take 10 mg by mouth 2 times daily. insulin glargine (Lantus) 100 UNIT/ML injection INJECT 80 UNIT SUBCUTANEOUSLY ONCE A DAY Levemir 100 UNIT/ML injection INJECT 25 UNITS SUBCUTANEOUSLY ONCE A DAY lisinopril 5 MG tablet Take 1 tablet by mouth in the morning. methylPREDNISolone (Medrol Dospak) 4 MG tablets TAKE PER PACKAGE DIRECTIONS warfarin (Coumadin) 1.5 MG split tablet Take 1 tablet by mouth at bed time. warfarin (Coumadin) 5 MG tablet TAKE 1 & 1/2 TO 2 TABLETS BY MOUTH EVERY DAY No facility-administered encounter medications on file as of 08/29/2024. 69 y/o old male presents for examination done by Dr. Dank Andrews, AUDIE. Chief Complaint: I came for cleaning and I wanted implant on my front tooth and implant partial dentures. Medical History: Patient does not report any changes in health issues that could alter the Treatment Plan. Medical consult / medical clearance needed: None [place]: Pain: no pain today Duration: n/a Scale of pain from 1-10 = n/a Aggravating factors: n/a Pain radiating: No Postural variation: No Allergies: Reviewed in EHR Medications: Reviewed in EHR Cancer screening: Extra-oral: WNL Intraoral: WNL Extra-oral examination TMJ Deviation - No Clicking - No Tenderness - No Facial symmetry - WNL Lymph nodes - WNL Cheeks - WNL Intraoral examination Soft tissues - WNL Palate - WNL Tongue - WNL Buccal mucosa - WNL Floor of mouth - WNL Vestibules - WNL Glands - WNL Duct area - WNL Oropharynx - WNL Gingiva Color - reddish - pink with pigmentation Radiographs X-rays taken today: none (insurance reasons-last time x-rays taken on 02/26/24) Quality are of diagnostic value and appropriate for radiographic analysis? : Yes Discussion: -Findings, risks, benefits and alternatives discussed with pt. -Reviewed radiographs with pt. -Pointed out areas of radiographic calculus and advanced bone loss. -Discussed sequelae of bacteria on gingiva and underlying bone. Recommended regular recalls. Advised increased frequency of brushing and flossing. 4-6 week perio reevaluation to determine if further treatment indicated. -Restorations planned as charted. -#7 has limited tooth structure and post and core has poor prognosis, pt was recommended extractionand was recommended extraction in the past by Dr. Son as well (see notes). - Pt has bilateral mandibular mark anthony present as evident clinically and removal will be required priorto lower RPD fabrication and placement. Pt was informed in the last periodic exam as well. -Pt asked for implants on #7 and upper and lower implant overdentures. Pt was informed that anterior implants and implant overdentures are not done in our facility but we can do conventional partial dentures after mandibular mark anthony removal (mark anthony removal with Dr. Gibbons - pt made aware about waiting list of Dr. Gibbons). Pt wanted to think about it at this time about conventional partial dentures and extraction of #7. -Pt understands that treatment plan might change anytime in the course of treatment since periodontal health needs to be stabilized first as pt has extensive bone loss in both maxilla and mandible. -OHI reviewed. Emphasis was laid on maintaining good oral hygiene regimen at home along with regular visits to dentist. -Pt understood, was satisfied with our conversation and agreed with tx plan; dismissed in good condition. -All questions answered. Oral Cancer Risk - low Perio risk- high Oral Hygiene Instruction Provided - Yes Oral Hygiene Instructions: [place] two times daily, modified borges technique, Floss daily, Electric toothbrush, Soft bristle toothbrush, [place] Tongue. Referrals - None Treatment plan: -prophy - completed today by Paige Childs -Restorative -extractions -mandibular mark anthony removal (left and right) with Dr. Gibbons -upper /lower partial dentures (if pt agrees with conventional partial dentures) -6 month recall All questions answered and expressed understanding. Dismissed in good condition. NV: restorative Hygienist: Paige Childs Dentist: Dr. Dank Andrews, DMD documented in this encounter Plan of Treatment Upcoming Encounters Date Type Department Care Team (Late st Contact Info) Description 09/12/2024 10:30 AM EST Office Visit [facility] [address] [place] [address] Dank Andrews [address] [place] [address] Scheduled Orders Name Type Priority Associated Diagnoses Orde r Schedule 29 DO 29 DO RESTORATIVE - RESIN-BASED COMPOSITE RESTORATIONS - DIRECT - RESIN-BASED COMPOSITE - TWO SURFACES, POSTERIOR Dental Routine 1 Occur rences starting 08/29/2024 CONSULTATION - DIAGNOSTIC SERVICE PROVIDED BY DENTIST OR PHYSICIAN OTHER THAN REQUESTING DENTIST OR PHYSICIAN Dental Routine 1 Occurrenc es starting 08/29/2024 LL LL REMOVAL OF TORUS MANDIBULARIS Dental Routine [address] arting 08/29/2024 LR LR REMOVAL OF TORUS MANDIBULARIS Dental Routine [address] arting 08/29/2024 6 DFL 6 DFL RESTORATIVE - RESIN-BASED COMPOSITE RESTORATIONS - DIRECT - RESIN-BASED COMPOSITE - THREE SURFACES, ANTERIOR Dental Routine 1 Occu rrences starting 08/29/2024 documented as of this encounter Procedures Procedure Name Priority Date/Time Associated Diagnosis Comments PROPHYLAXIS - ADULT Routine 08/29/2024 1 0:00 AM EST PERIODIC ORAL EVALUATION - ESTABLISHED PATIENT Routine 08/29/2024 10:00 AM EST ORAL HYGIENE INSTRUCTIONS Routine 2024 10:00 AM EST ADJUNCTIVE GENERAL SERVICES - PROFESSIONAL VISITS - CASE PRESENTATION, SUBSEQUENT TO DETAILED AND EXTENSIVE TREATMENT PLANNING Routine 08/29/2024 10:00 AM EST documented in this encounter Visit Diagnoses Not on filedocumented in this encounter
== END 2024-09-02 12:40 | disposition home or self-care (01) ==
LOC: HO.10HDL 12:39
PROVIDERS: Visit Provider Internal Medicine
DX: E11.9 Type 2 diabetes mellitus without complications (principal); J30.9 Allergic rhinitis, unspecified
CPT/HCPCS: 36415; 80048; 83036

== ENCOUNTER 2024-10-07 10:59 | Outpatient (REF) | payer MEDICARE, MEDICAID, SELFPAY ==
[2024-10-07 11:27] LABS: MANUAL DIFF FLAG NO
[2024-10-07 11:33] LABS: Basophils Percent Auto 0.3 % (0-2); Eosinophils Absolute Auto 0.1 X10*3/uL (0.0-0.4); Eosinophils Percent Auto 1.1 % (0-4); Hematocrit 42.8 % (42.0-52.0); Hemoglobin 14.2 g/dl (14.0-18.0); Imm Gran Abs Auto 0.03 X10*3/uL (0.00-0.03); Imm Gran Pct Auto 0.3 % (0.0-0.4); Lymphocytes Absolute Auto 1.2 X10*3/uL (1.2-4.9); Lymphocytes Percent Auto 12.1 % (20-40); Mean Corpuscular HGB Conc 33.2 g/dl (31.0-36.0); Mean Corpuscular Hemoglobin 29.6 pg (27.0-33.0); Mean Corpuscular Volume 89.4 fL (80.0-98.0); Mean Platelet Volume 10.3 fL (9.4-12.4); Monocytes Absolute Auto 0.8 X10*3/uL (0.1-1.2); Monocytes Percent Auto 8.9 % (2-11); Neutrophils Absolute Auto 7.3 x10*3/uL (2.0-8.3); Neutrophils Percent Auto 77.3 % (45-73); Platelet Count 180 X10*3/uL (160-400); Red Blood Count 4.79 X10*6/uL (4.60-5.80); White Blood Count 9.5 X10*3/uL (4.8-10.8)
[2024-10-07 11:37] LABS: Prothrombin Time 12.2 SEC (10.9-12.4)
[2024-10-07 11:52] LABS: Alanine Aminotransferase 27 U/L (0-40); Alkaline Phosphatase 157 U/L (39-117); Anion Gap 10 (12-20); Aspartate Amino Transferase 20 U/L (5-37); Bilirubin Total 0.6 mg/dL (0.0-1.0); Blood Urea Nitrogen 18 mg/dL (9-16); Calcium 8.9 mg/dL (8.4-10.2); Carbon Dioxide 27 mmol/L (22-29); Chloride 108 mmol/L (96-108); Estimated Glomerular Filt Rate > 60; Glucose Random 205 mg/dL (60-115); Sodium 141 mmol/L (135-145); Total Protein 7.4 g/dL (6.5-8.0)
--- OUTSIDE RECORDS SUMMARY | 2024-10-07 13:47 | XMS_ITS | Encounter Summary ---
Author Organization [employer] Address [address] [facility] [address] 7 [place] [address] Care Team Providers Care Hand Coper Name Role Phone Unavailable Primary Care Provider Unavailabl e Reason for Visit * Reason Comments Dental Pain Encounter Details Date Type Department Care Team ([facility] st Contact Info) Description 10/03/2024 1:00 PM EST Office Visit [facility] ADULT D[facility]AL [address] [place] [address] Amber Jung DDS [address] [place] [address] Social History Tobacco Use Types Packs/Day Years Used Date Smoking Tobacco: Never Smokeless Tobacco: Never Alcohol Use Standard Drinks/Week Comments Defer 0 (1 standard drink = 0.6 oz pur e alcohol) Sex and Gender Information Value Date Recorded Sex Assigned at Male 06/05/2022 10:23 AM EDT Legal Sex Male 10:23 AM EDT Gender Identity Choose not to disclose 2 10:23 AM EDT Sexual Orientation Choose not to disclose 2021 10:23 AM EDT documented as of this encounter Progress Notes * Amber Jung DDS - 10/03/2024 1:00 PM EST Dental procedures in this visit D0140 - LIMITED ORAL EVALUATION - PROBLEM FOCUSED 17,15 (Completed) Service provider: Amber uJng DDS Billing provider: Reena Romo DDS D9450 - CASE PRESENTATION, DETAILED AND EXTENSIVE TREATMENT PLANNING (Completed) Service provider: Amber Jung DDS Billing provider: Reena Romo DDS Patient ID: Shawn Myrick is a 69 y.o. adult. Time Out: Date: 10/03/2024 Location: [facility] Tooth: #15 and #17 Procedure: Exam Verified the above with patient, medical assistant supervisor, and provider. Confirmed via patient's chart, intraorally and by radiographs. Rent And Miscellaneous Remittance Clerk: not applicable 69 y.o. y/o adult presents for limited exam with Dr. Amber Jung DDS Medical history: Reviewed in EHR Vitals: There were no vitals taken for this visit. Allergies: Reviewed in EHR Medications: Reviewed in EHR Radiographs taken: none taken CHIEF COMPLAINT: I think I have a tooth infection. I feel some pain more so pressure when I yawn and also on my tooth on the lower left I feel some pressure and when I bit it bothers me here Discussion: During visit clinical & radiograph examination was done. Upon evaluation it was noted tooth #17 impacted full bony covered by the gums. During visit pain was present upon palpation ofthe cheeks in between #15 & #17 and it was noted mild swelling with traumatic bite present on cheeks. Pt was informed that the pain he's feeling its not an infection however, its coming from the tooth #15 chewing/rubbing his cheeks. Pt stated yes that makes sense because I only eat on the left site. PT was advised to place gauze in between cheeks and #15 &17 in order to avoid more trauma to thecheeks resulting in swelling and pain of it. (Gauze was given to the patient during visit). PT was informed that we would advised possible extraction of tooth #15 followed with a fabrication of upperand lower partial to avoid the cheek getting in this area and prevent future trauma to the cheeks. Also, we advised him to get a consultation with Dr. Gibbons the oral surgeon to have #17 extracted. Ptagreed & understood. NV: consult with Dr. Gibbons Provider: Dr. Amber Jung DDS Dental Dough Brake Machine Operator: Braxton Roberts Attending: Dr. Romo * Reena Romo DDS - 10/03/2024 1:00 PM EST I have reviewed the documentation and dental procedures completed by the rendering provider, Amber Jung DDS, and approve their chart entries for this visit. JASIEL Rogers DDS documented in this encounter Plan of Treatment Upcoming Encounters Date Type Department Care Team (Late st Contact Info) Description 10/08/2024 2:00 PM EST Office Visit [facility] ADULT [facility] [address] [place] [address] Amber Jung DDS [address] [facility] [place], [place] [id number] 10/22/2024 8:00 AM EDT Office Visit [facility] [address] [place], [place] [phone] Zechariah Gibbons, AUDIE [address] [place], [place] [phone] documented as of this encounter Procedures Procedure Name Priority Date/Time Associated Diagnosis Comments 17,15 LIMITED ORAL EVALUATION - PROBLEM FOCUSED Routine 10/03/2024 1:00 PM EST CASE PRESENTATION, DETAILED AND EXTENSIVE TREATMENT PLANNING Routine 10/03/2024 1:00 PM EST documented in this encounter Visit Diagnoses Not on filedocumented in this encounter
--- OUTSIDE RECORDS SUMMARY | 2024-10-07 13:47 | XMS_ITS | Encounter Summary ---
Author Organization [employer] Address [address] [place] [address] Care Team Providers Care Goat Driver Name Role Phone Unavailable Primary Care Provider Unavailabl e Reason for Visit * Reason Onset Date Comments unable to post insurance PAR 10/03/2024 Encounter Details Date Type Department Care Team ([facility] st Contact Info) Description 10/03/2024 Telephone [facility] [address] [place] [address] Amber Jung, DDS [address] [place] [address] unable to post insurance PAR Social History Tobacco Use Types Packs/Day Years [...] encounter Miscellaneous Notes * Telephone Encounter - Carrie Johnson - 10/07/2024 10:57 AM EST returning Anju call she stated pt providers rtired unexpectedly and they were having another provider see Shawn to clear him for his extractions. She will call the office again if pt was not clear and he will need another appointment. Anju #[phone] * Telephone Encounter - Sabrina Escobar - 10/03/2024 11:25 AM EST Patient coming in for 1pm emergency visit. Unable to post [employer] insurance on PAR side documented in this encounter Plan of Treatment Upcoming Encounters Date Type Department Care Team (Late st Contact Info) Description 10/08/2024 2:00 PM EST Office Visit [facility] ADULT [facility] [address] [place] [address] Amber Jung, DDS [address] [facility] [place] [address] 10/22/2024 8:00 AM EDT Office Visit [facility] [address] [place] [address] Zechariah Gibbons, DMD [address] [place] [address] documented as of this encounter Visit Diagnoses Not on filedocumented in this encounter
--- OUTSIDE RECORDS SUMMARY | 2024-10-07 13:47 | XMS_ITS ---
Author Organization [facility] Address [address] [place] [address] Care Team Providers Care Harness Repairer Name Role Phone Bala Waterman MD Primary Care Provider UnavailVick Guillaume Jr Unavailable REASON FOR VISIT starting on methylprednisolone Encounters Encounter Location Date Provider Diagnosis [facility] [address] [place] [address] 07/02/2024 Vick Schuster Jr PLAN OF TREATMENT No Information
--- OUTSIDE RECORDS SUMMARY | 2024-10-07 13:47 | XMS_ITS | Clinical Summary ---
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 gs 09/12/2024 Closed left ankle fracture 11/18/2023 Closed nondisplaced fracture of lateral malleolus of left fibula 08/30/2023 Encounters Date Type Department Care Team Description 10/03/2024 1:00 PM EST Office Visit [facility] [address] [place] [address] Amber Jung DDS 10/03/2024 Telephone [facility] [address] [place] [address] Amber Jung DDS unable to post insurance PAR 09/12/2024 10:30 AM EST Office Visit [facility] [address] [place] [address] Carlos Andrewsbrennencasper 08/29/2024 10:00 AM EST Office Visit [facility] [address] [place] [address] Paige Childs from Last 3 Months Social History Tobacco [...] Description 10/08/2024 2:00 PM EST Office Visit [facility] [address] [place] [address] Amber Jung DDS [address] [facility] [place] [address] 10/22/2024 8:00 AM EDT Office Visit [facility] [address] [place] [address] Zechariah Gibbons, DMD [address] [place] [address] Health Maintenance Due Date Last Done Comments CT Colonography 1955 Colonoscopy 1955 Depression Screening 1955 FIT 1955 FOBT 1955 Lipid Panel 1955 SDOH Screening 1955 Sigmoidoscopy 1955 Alcohol/Substance Use Screening 1965 Hepatitis C Screening 1971 DTaP/Tdap/Td Vaccines (1 - Tdap) 1972 Pneumococcal Vaccine: 50+ Years (1 of 1 - PCV) 2003 Zoster Vaccines (1 of 2) 2003 COVID-19 Vaccine (5 - season) 2024 06/21/2022, 06/09/2021, 11/16/2020, Additional history exists Influenza Vaccine (#1) 2024 , 05/11/2020, 04/06/2019, Additional history exists Dental Oral Exam 02/27/2025 08/29/2024, 03/03/2024 Dental Prophylaxis 02/27/2025 08/29/2024, 0 02/26/2024, 02/20/2023 Dental X-Ray: Bitewings 05/07/2025 05/06/20, 02/26/2024, 07/24/2023, Additional history exists Tobacco Screening 09/12/2025 09/12/2024 Dental X-Ray: Full Mouth 03/25/2027 03/24/2024, 02/04 [...] Procedure Name Priority Date/Time Associated Diagnosis Comments CASE PRESENTATION, DETAILED AND EXTENSIVE TREATMENT PLANNING Routine 10/03/2024 1:00 PM EST 17,15 LIMITED ORAL EVALUATION - PROBLEM FOCUSED Routine 10/03/2024 1:00 PM EST 6 DFL RESIN-BASED COMPOSITE - 3 SURF, ANTERIOR Routine 09/12/2024 10:30 AM EST CASE PRESENTATION, DETAILED AND EXTENSIVE TREATMENT PLANNING Routine 09/12/2024 10:30 AM EST PERIODIC ORAL EVALUATION - ESTABLISHED PATIENT Routine 08/29/2024 10:00 AM EST ORAL HYGIENE INSTRUCTIONS Routine 2024 10:00 AM EST CASE PRESENTATION, DETAILED AND EXTENSIVE TREATMENT PLANNING Routine 08/29/2024 10:00 AM EST PROPHYLAXIS - ADULT Routine 08/29/2024 1 0:00 AM EST BITEWING - SINGLE RADIOGRAPHIC IMAGE Routine 05/06/2024 11:30 AM EDT PANORAMIC RADIOGRAPHIC IMAGE Routine 03/24/2024 9:00 AM EDT from Last 3 Months or Most Recently Relevant to Health Maintenance Insurance DENTAL - HSN FULL (MEDICAID)
--- OUTSIDE RECORDS SUMMARY | 2024-10-07 13:47 | XMS_ITS ---
Author Organization [facility] Address [address] [place] [address] Care Team Providers Care Protector Plate Attacher Name Role Phone Bala Waterman MD Primary Care Provider Vick Lay Jr Unavailable [phone] REASON FOR VISIT pathology Encounters Encounter Location Date Provider Diagnosis [facility] [address] [place] [address] 07/16/2024 Vick Schuster Jr PLAN OF TREATMENT No Information
--- OUTSIDE RECORDS SUMMARY | 2024-10-07 13:47 | XMS_ITS | Encounter Summary ---
Author Organization [employer] Address [address] [place] [address] 7 [place] [address] Care Team Providers Care Chip Applying Machine Tender Name Role Phone Unavailable Primary Care Provider Unavailabl e Encounter Details Date Type Department Care Team (Latest Contact Info) Description 09/20/2021 Abstract [facility] CONVERSIONS Dental, Provider, DDS Social History [...] Description 10/08/2024 2:00 PM EST Office Visit [facility] ADULT D[facility]AL [address] [place] [address] Amber Jung, DDS [address] [place] [address] 10/22/2024 8:00 AM EDT Office Visit [facility]ULT [facility] [address] [place] [address] Zechariah Gibbons, DMD [address] [place], [place] documented as of this encounter Visit Diagnoses Not on filedocumented in this encounter
--- OUTSIDE RECORDS SUMMARY | 2024-10-07 13:47 | XMS_ITS | Encounter Summary ---
Author Organization [employer] Address [address] [place] [address] 7 [place] [address] Care Team Providers Care Respiratory Therapist Assistant Name Role Phone Unavailable Primary Care Provider Unavailabl e Reason for Visit * Reason Comments Med Refill Encounter Details Date Type Department Care Team (Late st Contact Info) Description 07/06/[address] [facility] ADULT DENTAL [address] [place] [address] Chase Duggan DMD [address] [place] [address] Periodontal abscess Social History Tobacco Use Types [...] Description 10/08/2024 2:00 PM EST Office Visit [facility]ULT [facility] [address] [place] [address] Amber Jung, DDS [address] [place] [address] 10/22/2024 8:00 AM EDT Office Visit [facility]ULT [facility] [address] [place] [address] Zechariah Gibbons, DMD [address] [place] [address] documented as of this encounter Visit Diagnoses Diagnosis Periodontal abscess Aggressive periodontitis, localized documented in this encounter
--- OUTSIDE RECORDS SUMMARY | 2024-10-07 13:47 | XMS_ITS | Encounter Summary ---
Author Organization [employer] Address [address] [place] [address] 7 [place] [address] Care Team Providers Care Chargeback Specialist Name Role Phone Unavailable Primary Care Provider Unavailabl e Reason for Visit * Reason Comments Filling #6 Encounter Details Date Type Department Care Team ([facility] Contact Info) Description 09/12/2024 10:30 AM EST Office Visit [facility] [address] [place] [address] Daren Andrewsmiguelangel [address] [place] [address] Social History Tobacco Use Types Packs/Day Years [...] as of this encounter Progress Notes * Dank Andrews - 09/12/2024 10:30 AM EST Patient ID: Shawn Myrick is a 69 y.o. adult. Time Out: Timeout Date: 09/12/24 (uatsdin #6), Timeout Time: 1049 Location: [facility] Tooth: #6 Procedure: Latter-Day Verified the above with patient, web press operator assistant, and provider. Confirmed via patient's chart, intraorally and by radiographs. Parcel Contractor: not applicable Chief Complaint Patient presents with Filling #6 Medical Hx: Vitals: There were no vitals taken for this visit. Medications, Med Hx reviewed with patient and updated in chart. Consent Obtained: The risks, benefits, indications, potential complications, and alternatives were explained to the patient and informed consent was obtained with good understanding. Treatment Provided: Dental procedures in this visit D2332 - RESTORATIVE - RESIN-BASED COMPOSITE RESTORATIONS - DIRECT - RESIN-BASED COMPOSITE - THREE SURFACES, ANTERIOR 6 DFL (Completed) Service provider: Dank Andrews Billing provider: Dank Andrews D9450 - ADJUNCTIVE GENERAL SERVICES - PROFESSIONAL VISITS - CASE PRESENTATION, SUBSEQUENT TO DETAILED AND EXTENSIVE TREATMENT PLANNING (Completed) Service provider: Dank Andrews Billing provider: Dank Andrews Diagnosis: Defective uatsdin Topical: 20% Benzocaine Anesthesia: n/a Number of Cartridges: n/a Injection Type: N/A Confirmed profound anesthesia. Isolation: high speed suction and cotton rolls and bite block Prep: All caries removed, Existing uatsdin removed, and Preparation finalized Matrix: None Etch: 37% Phosphoric Acid Etch Desensitizer: Gluma Liner/Base: None Michelle: I-Michelle Latter-Day Material: Voco Grandioso Packable Shade: A2 Polished. Occlusion & contacts verified. Patient satisfied with comfort and esthetics. Patient tolerated procedure well. Post-operative instructions were given. Patient departed alert, oriented, and in stable condition. NOTE- pt lost previous medical clearance form given by Dr. Son, new form given again today. NOTE-verbal consent was taken but written consent form was accidentally missed and pt was already dismissed; will be taken next time. NV: restorative/consult with Dr. Gibbons - MEDICAL CLEARANCE NEEDED FIRST!! Emergency Response Officer: Judie Feliz Dentist: Dr. Dank Andrews, DMD documented in this encounter Plan of Treatment Upcoming Encounters Date Type Department Care Team (Late st Contact Info) Description 10/08/2024 2:00 PM EST Office Visit [facility] [address] [place] [address] Amber Jung, DDS [address] [place] [address] 10/22/2024 8:00 AM EDT Office Visit [facility] [address] [place], [place] [address] Zechariah Gibbons, AUDIE [address] [place], [place] [phone] documented as of this encounter Procedures Procedure Name Priority Date/Time Associated Diagnosis Comments 6 DFL RESIN-BASED COMPOSITE - 3 SURF, ANTERIOR Routine 09/12/2024 10:30 AM EST CASE PRESENTATION, DETAILED AND EXTENSIVE TREATMENT PLANNING Routine 09/12/2024 10:30 AM EST documented in this encounter Visit Diagnoses Not on filedocumented in this encounter
--- OUTSIDE RECORDS SUMMARY | 2024-10-07 13:47 | XMS_ITS | Clinical Summary ---
Author Organization [facility] Address [address] [place] [address] Care Team Providers Care Web Site Designer Name Role Phone Bala Waterman MD Primary Care Provider [phone] Social History Tobacco Use Types Packs/Day Years [...] age to complete this topic Care Teams Web Site Designer Relationship Specialty Start Date End Date Bala Waterman MD [address] [place] [address] [address] [place] [address] PCP - General Placement Assistant 03/31/19
--- OUTSIDE RECORDS SUMMARY | 2024-10-07 13:47 | XMS_ITS | Patient Health Record ---
Author Organization [place] [facility], MD Address [address] [place] [address] [place] [address] Care Team Providers Care Wildlife Biostation Research Ecologist Name Role Phone Bala Waterman MD Primary Care Provider [place] Eubanks Unavailable [phone] Allergies Allergen (clinical drug ingredient) Drug/Non Drug Allergy documented on EMR Reaction Allergy Type Onset Date Status No Known Drug Allergy Unknown Drug Allergy Active Reason For Referral No Information Medications Medication SIG (Take, Route, Frequency, Duration) Notes Start Date End Date Status Lisinopril 5 MG Oral Acti ve glipiZIDE 5 MG Oral Activ e FreeStyle Lite Test - In Vitro Active Warfarin Sodium 5 MG 1 tablet Orally Once a day Active Atorvastatin Calcium 20 MG Oral Active Basaglar KwikPen 100 UNIT/ML Subcutaneous Active Social History Sex Assigned At : Social History Observation Description Sex Assigned At Male Vital Signs Heart Rate 64 /min 10/07/2024 Temperature 98.3 degrees Fahrenheit 10/07/2024 Blood pressure diastolic 68 mm Hg 10/07/2024 Height 5'11 in 10/07/2024 Blood pressure systolic 178 mm Hg 10/07/2024 Weight 221 lbs 10/07/2024 BMI 30.82 kg/m2 10/07/2024 Encounters Encounter Location Date Provider Diagnosis [place] Bucio III, MD [address] [place] [address] [place] [address] 10/07/2024 [place] Bucio Preoperative clearan ce Z01.818 Assessments Encounter Date Diagnosis (ICD Code) Assessment Notes Treat ment Notes Treatment Clinical Notes 10/07/2024 Preoperative clearance (ICD-10 - Z01.818) Plan Of Treatment No Information Insurance Providers Payer Name Payer Address Payer Phone Subscriber Number Group Number Insured Name Patient Relationship to Insured Coverage Start Date Coverage End Date [employer] [address] [place], [place] [id number] [phone] [id number] Shawn Myrick Self - patient is the insured MEDICARE NGS [address] [place] [address] [id number] Shawn Myrick Self - patient is the insured MEDICAID [address] [place]EVIN HARTMANN [id number] [phone] [id number] Shawn Myrick Self - patient is the insured
--- OUTSIDE RECORDS SUMMARY | 2024-10-07 13:47 | XMS_ITS | Patient Health Record ---
Author Organization [facility] Address [address] [place] [address] Care Team Providers Care Poolroom/Poolhall Manager Name Role Phone Bala Waterman MD Primary Care Provider Vick Lay Jr Unavailable ALLERGIES No Known Allergies RESULTS Component Value Reference Range Notes Prothrombin Time INR Reviewed date:07/11/2024 03:00:05 PM Interpretation: Performing Lab:[facility], [address] [place] [phone] Notes/Report: Prothrombin Time 11.7 10.9-12.4 [employer] [...] Blood Reviewed date:07/11/2024 03:00:01 PM Interpretation: Performing Lab:[facility], [address] [place] [phone] Notes/Report: Glucose, Whole Blood 110 60-115 mg/dL METER # : [id number] Pathology Reviewed date:07/16/2024 08:36:50 AM Interpretation: Performing Lab:[facility], [address] [place] [phone] Notes/Report: REASON FOR REFERRAL No Information MEDICATIONS [...] Problem Colon cancer screening (Z12.11) Active confirmed 238877884 Problem prison (current) use of anticoagulants (Z79.01) Active confirmed 754650243 Problem Abnormal findings in stool (R19.5) Active confirmed 799395451 Problem prison (current) use of oral hypoglycemic drugs (Z79.84) Active confirmed [id number] Problem Personal history of colonic polyps (Z86.0100) Active confirmed 758914333 VITAL SIGNS Blood pressure diastolic 00 mm Hg 06/12/2024 Height 71 in 06/12/2024 Blood pressure systolic 00 mm Hg 06/12/2024 Weight 218 lbs 06/12/2024 BMI 30.40 kg/m2 06/12/2024 Encounters Encounter Location Date Provider Diagnosis [facility] [address] [place], [place] [id number] 07/11/2024 Vick Schuster Jr Colon polyps K63.5 ; Heme positive stool R19.5 and Personal history of colonic polyps Z86.0100 [facility] [address] [place] [address] 06/12/2024 Vick Schuster Jr Abnormal findings in stool R19.5 ; Personal history of colonic polyps Z86.0100 and prison (current) use of anticoagulants Z79.01 [facility] [address] [place] [address] 07/02/2024 Vick Schuster Jr [facility] [address] [place] [address] 07/16/2024 Vick Schuster Jr ASSESSMENTS Encounter Date Diagnosis Assessment Notes Treatment Notes Treatment Clinical Notes 07/11/2024 Colon polyps (ICD-10 - K63.5) 07/11/2024 Heme positive stool (ICD-10 - R19.5) 06/12/2024 Abnormal findings in stool (ICD-10 - R19.5) Colonoscopy material was printed 06/12/2024 Personal history of colonic polyps (ICD-10 - Z86.0100) 07/11/2024 Personal history of colonic polyps (ICD-10 - Z86.0100) 06/12/2024 terminal carman (current) use of anticoagulants (ICD-10 - Z79.01) PLAN OF TREATMENT Future Test Test Name Order Date COLONOSCOPY 11/12/2019 COLONOSCOPY 06/12/2024 Insurance Providers Payer Name Payer Address Payer Phone Subscriber Number Group Number Insured Name Patient Relationship to Insured Coverage Start Date Coverage End Date [facility] [address] [place], [place] [id number] SVETLANA NUR Self - patient is the [...]
--- OUTSIDE RECORDS SUMMARY | 2024-10-07 13:48 | XMS_ITS ---
Author Organization [facility] Address [address] [place] [address] Care Team Providers Care Air Brush Artist Name Role Phone Bala Waterman MD Primary Care Provider Vick Lay Jr Unavailable REASON FOR VISIT positive cologuard Encounters Encounter Location Date Provider Diagnosis [facility] [address] [place] [phone] 07/11/2024 Vick Schuster Jr Colon polyps K63.5 [...]
--- OUTSIDE RECORDS SUMMARY | 2024-10-07 13:48 | XMS_ITS ---
Author Organization [place] [facility], [facility] Address [address] [facility] [place] [address] Care Team Providers Care Bumboater Name Role Phone Bala Waterman MD Primary Care Provider [place] Eubanks Unavailable [phone] Allergies Allergen (clinical drug ingredient) Drug/Non Drug [...] degrees Fahrenheit 10/08/19 25 Blood pressure systolic 178 mm Hg 10/08/19 25 Blood pressure diastolic 68 mm Hg 025 Heart Rate 64 /min 10/07/2024 Height 5'11 in 10/07/2024 Weight 221 lbs 10/07/2024 BMI 30.82 kg/m2 10/07/2024 Encounters Encounter Location Date Provider Diagnosis [place] Bucio III, MD [address] [place] [address] [place] [address] 10/07/2024 [place] Bucio Preoperative clearan ce Z01.818 Assessments Encounter Date Diagnosis (ICD Code) Assessment Notes Treat ment Notes Treatment Clinical Notes 10/07/2024 Preoperative clearance (ICD-10 - Z01.818) Plan Of Treatment Medication Medication Name Sig Start Date Stop Date Notes Lisinopril 5 MG Oral glipiZIDE 5 MG Oral FreeStyle Lite Test - In Vitro Warfarin Sodium 5 MG 1 tablet Orally Once a day Naomi Mustafa 100 UNIT/ML Subcutaneous Atorvastatin Calcium 20 MG Oral Progress Notes * Shawn NURDOB:1955 (69 yo M)Acc No.[id number]:10/07/2024 Patient:Shawn BOURNE Provider:?[place] Bucio MD :1955???Age:69 Y???Sex:Male Lopez e:10/07/2024 Address:[address] [address], [place], [place] Pcp:Bala Waterman MD Subjective: * Chief Complaints: * ???1. Clearance for Dental E xtraction on 10/08/[address] Jung. * HPI: ???COVID-19 Screening:?Questions?Have you had any new onset fever, chills, cough, congestion, sore throat, shortness of breath, muscle aches??No * ROS:?General/Constitutional:?pain?only normal aches and pains.?Chills?denies.?Fatigue?admits.?Fever?denies.?ENT:?Decreased hearing?denies.?Respiratory:?Cough?denies.?Cardiovascular:?Chest pain with exertion?denies.?Dyspnea on exertion?denies.?Shortness of breath?denies.?Gastrointestinal:?Constipation?denies.?Decreased appetite?denies.?Diarrhea?denies.?Heartburn?denies.?Nausea?denies.?Rectal bleeding?denies.?Vomiting?denies.?Hematology:?bruising?denies.?petechiae?denies.?Swollen glands?none have been noted.?Genitourinary:?Frequent urination?denies.?Musculoskeletal:?Muscle aches?denies.?Painful joints?denies.?Sciatica?denies.?Weakness?denies.?Skin:?Itching?denies.?Rash?denies.?Skin lesion(s)?denies.?Neurologic:?Difficulty speaking?denies.?Dizziness?denies.?Headache?denies.?Low back pain?denies.?Psychiatric:?Depressed mood?denies.? * Medical History:?Medical His tory Verified. * Surgical History:?Denies Pas t Surgical History. * Hospitalization/Major Diagno stic Procedure:?Denies Past Hospitalization. * Family History:?Non-Contribu tory.? * Medications:?Taking Warfarin Sodium 5 MG Tablet 1 tablet Orally Once a day , Taking FreeStyle Lite Test - Strip In Vitro , Taking Basaglar KwikPen 100 UNIT/ML Solution Pen-injector Subcutaneous , Taking Atorvastatin Calcium 20 MG Tablet Oral , Taking glipiZIDE 5 MG Tablet Oral , Taking Lisinopril 5 MG Tablet Oral , Medication List reviewed and reconciled with the patient * Allergies:?No Known Drug All ergy. Objective: * Vitals:?Ht:5'11 , Wt:221, BM I:30.82, BP:178/68, HR:64, Temp:98.3, Ht-cm: 180.34, Wt-k.24. * Examination: ???General Examination: ?GENERAL APPEARANCE:?pleasant, well nourished, well developed, in no acute distress, calm and relaxed.?HEAD:?atraumatic, normocephalic.?EYES:?eomi, perrla, anicteric, conjugate.?EARS:?normal.?NOSE:?septum intact.?ORAL CAVITY:?normal, unremarkable.?NECK/THYROID:?no jugular venous distention, no carotid bruit, thyroid normal.?LYMPH NODES:?no enlarged lymph nodes,spleen normal.?SKIN:?no suspicious lesions, anicteric.?HEART:?no clicks, gallops, murmurs, or rubs, regular rhythm, S1, S2 normal, no s3, or vascular bruits.?LUNGS:?clear to auscultation .?BREASTS:??no masses palpable bilaterally.?ABDOMEN:?bowel sounds normal, no ascites, no organomegaly, no mass.?RECTAL EXAM:?not examined.?MUSCULOSKELETAL:?extremities unremarkable, no clubbing, cyanosis or edema.?PERIPHERAL PULSES:?normal.?NEUROLOGIC:?alert and oriented, cranial nerves 2-12 grossly intact, deep tendon reflexes 2+ symmetrical, motor strength normal upper and lower extremities, sensory exam intact.?PSYCH:?alert, oriented.? Assessment: * Assessment: 1.?Preoperative clearance - Z01.818 (Primary)??? Plan: * Treatment: * Preventive Medicine:? ??Counseling:?Care goal follow-up plan:?Counseling for abnormal BMI given?Yes ?Above Normal BMI Follow-up?Dietary management education, guidance, and counseling, Dietary needs education, Exercise promotion: strength training, Exercise promotion: stretching, Feeding regime, Giving encouragement to exercise, Lifestyle education regarding diet, Nutrition / feeding management, Nutrition therapy, Prescribed activity/exercise education, Prescribed diet education, Prescribed dietary intake, Special diet education, Weight monitoring , Intervention, Order not done: Medical or Other reason not done * Images: * The named appointment provid er may or may not be the originator of this progress note, and it is not deemed complete until electronically signed by the appointment provider. Sign off status: Pending * Provider:?[place] Bucio MD Date:?11/2024 Generated for Courtney perez/Timothy/Evelioitting on:?10/07/2024 01:47 PM EST History and Physical Notes * HPI (History of Present Illness) Category Sub-Category Detail Notes COVID-19 Screening Questions Have you had any new onset fever, chills, cough, congestion, sore throat, shortness of breath, muscle aches?: No Examination Category Sub-Category Detail Notes General Examination GENERAL APPEARANCE: pleasant , well nourished, well developed, in no acute distress, calm and relaxed HEAD: atraumatic, normocep halic EYES: eomi, perrla, anicte roseann, conjugate EARS: normal NOSE: septum intact NECK/THYROID: no jugular venous di stention, no carotid bruit, thyroid normal HEART: no clicks, gallops, murmurs, or rubs, regular rhythm, S1, S2 normal, no s3, or vascular bruits LUNGS: clear to auscultatio n ABDOMEN: bowel sounds normal, no ascites, no organomegaly, no mass NEUROLOGIC: alert and oriented, cranial nerves 2-12 grossly intact, deep tendon reflexes 2+ symmetrical, motor strength normal upper and lower extremities, sensory exam intact SKIN: no suspicious lesion s, anicteric PERIPHERAL PULSES: normal BREASTS: no masses palpable b ilaterally MUSCULOSKELETAL: extremities unremark able, no clubbing, cyanosis or edema LYMPH NODES: no enlarged lymph no tod,spleen normal RECTAL EXAM: not examined PSYCH: alert, oriented ORAL CAVITY: normal, unremarkable
== END 2024-10-07 11:00 | disposition home or self-care (01) ==
LOC: HO.LAB 10:59
PROVIDERS: PCP Internal Medicine; Visit Provider Family Medicine
DX: E11.22 Type 2 diabetes mellitus with diabetic chronic kidney disease (principal); D68.51 Activated protein C resistance
CPT/HCPCS: 36415; 80053; 85025; 85610

== ENCOUNTER 2025-04-13 16:03 | Outpatient (AMB) | payer MEDICARE, MEDICAID, SELFPAY ==
--- OUTSIDE RECORDS SUMMARY | 2024-07-11 07:50 | XMS_ITS ---
Author Organization [facility] Address [address] [place] [address] Care Team Providers Care Track Hoe Operator Name Role Phone Columba (RETIRED) Bala BOWIE Primary Care Provide r Vick Echavarria Jr Unavailable REASON FOR VISIT positive cologuard Encounters Encounter Location Date Provider Diagnosis [facility] [place] [address] [place] [phone] 07/11/2024 Vick Schuster Jr Colon polyps K63.5 [...] Notes * LIUDMILA, SVETLANADOB:1955 (70 yo M)Acc No.[id number]:07/11/2024 Progress Notes Patient: SVETLANA MAGANA Provider: Joaquín Schuster MD :1955 A ge:69 Y S ex:Male Date:07/11/2024 Address:[address], [place], [place] Pcp:Bala Waterman (RETIRED )MD Subjective: * Chief Complaints: * 1 . Positive cologuard. * Medical History: Objective: * Vitals: Assessment: * Assessment: 1. C olon polyps - K63.5 (Primary) 2 . H faisal positive stool - R19.5 ? 3 . P ersonal history of colonic polyps - Z86.0100 Plan: * Treatment: * Procedure Codes: 4 5385 LESION REMOVAL COLONOSCOPY * * The named appointment provid er may or may not be the originator of this progress note, and it is not deemed complete until electronically signed by the appointment provider. Sign off status: Pending * Provider: Joaquín Schuster MD Date: 1 09/11/2023 Generated for Courtney perez/Timothy/Evelioitting on: 0 04/13/2025 06:43 PM EDT
--- OUTSIDE RECORDS SUMMARY | 2024-10-07 09:30 | XMS_ITS ---
Author Organization Dalton Bucio III, MD Address [address] [place] [address] Care Team Providers Care Chute Feeder Name Role Phone Bala Waterman MD Primary Care Provider Dalton Eubanks Unavailable [phone] Allergies Allergen (clinical drug ingredient) Drug/Non Drug [...] Date Provider Diagnosis Dalton Bucio III, MD [address] [place] [address] [place] [address] 10/07/2024 Dalton Bucio Preoperative clearan ce Z01.818 [...] Notes * Shawn NURDOB:1955 (69 yo M)Acc No.[id number]:10/07/2024 Patient: Shawn MAGANA Provider: Tami Bucio MD :1955 A ge:69 Y S ex:Male Date:10/07/2024 Address:[address] Pcp:Bala Waterman MD Subjective: * Chief Complaints: [...] tooth extracted by a dentist at the [facility] on [facility] tomorrow at 2 PM. I have access [...] is no record of this at the [facility]. The patient says he has been seen at the [facility]. He has had his warfarin stopped before [...] Bucio MD Date: 0 10/07/2024 Generated for Jordii chris/Timothy/eTransmitting on: 0 04/13/2025 06:43 PM EDT History and Physical Notes * [...]
[2025-04-13 16:12] VITALS: BP 148/80; PULSE 58; TEMP 36.2; O2SAT 98; BMI 29.6
--- NOTE | 2025-04-13 16:12 | MHC.PC.OV ---
Vital Signs 04/13/25 16:12 Height 5 ft 11 in Weight 212 lb BMI 29.6 BP 148/80 H Blood Pressure Location Rt brachial Position Sitting Pulse 58 Pulse Source Pulse Oximeter Temp 97.2 F Temp Source Temporal Artery Scan Pulse Oximetry (%) 98 Oxygen Delivery Method Room Air Intake Visit Reasons: right groin pull & diabetes f/u -Croke Well Head Pumper Required: No Accompanied by: Self / Same As Patient Allergies latex Adverse Reaction (Verified 04/13/25 16:12) Itching Medication List - Last Reconciled 04/13/25 by TAVON Valdez atorvastatin 20 mg PO DAILY cetirizine (Allergy Relief (cetirizine)) 10 mg PO DAILY glipizide 10 mg (2 x 5 mg) PO BID insulin glargine (Basaglar KwikPen U-100 Insulin) 25 units subcut BID lisinopril 5 mg PO DAILY warfarin 5 mg PO DAILY Held on 06/16/20. Instructions: Resume on 06/18/20. 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 He was previously managed with glipizide 10mg BID and Basalgar insulin 25 units daily, with lab work in August showing a blood sugar level of 205 mg/dL and an HbA1c of 7.9%. The patient reports a history of hyperlipidemia managed with atorvastatin and hypertension managed with lisinopril. His BP today was 140/80. The patient also presents with a groin muscle strain that began approximately three months ago, which has since affected his back and sleep due to pain and limited mobility. He attempted conservative management with rest and ice, but the condition persists, impacting his daily activities such as driving and climbing stairs. He notices decrease in his balance. The patient has a history of Factor V Leiden thrombophilia, which led to a previous blood clot requiring hospitalization. He is currently on anticoagulation therapy with Coumadin. The patient reports symptoms consistent with carpal tunnel syndrome, including numbness and weakness in the hands, which have been exacerbated by previous neck surgery. He experiences difficulty with fine motor tasks and reports a history of cervical spine surgery, which involved a microdiscectomy. He has pain in the right shoulder. The patient also reports nasal congestion, which has been attributed to possible allergies and is exacerbated by stress. He experiences disrupted sleep due to congestion and has been using nasal sprays for relief. [facility] Medical History (Updated 04/20/25 @ 06:57 by TAVON Valdez) Allergic rhinitis Back pain Diabetes DVT (deep venous thrombosis) Elevated cholesterol Factor V deficiency Factor V Leiden History of fractured rib History of renal stone History of unsteady gait Hypertension On anticoagulant therapy Right hip pain Right shoulder pain Surgical History H/O cervical discectomy (~2018) History of testicular surgery History of total left hip replacement Hx of colonoscopy (~06/2020) Hx of elbow surgery Family History (Updated 04/13/25 @ 16:25 by Codie Yi MA) Mother No problems noted. Father No problems noted. 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 1. Little interest or pleasure in doing things: not at all 2. Feeling down, depressed, or hopeless: nearly every day 3. Trouble falling or staying asleep, or sleeping too much: several days 4. Feeling tired or having little energy: nearly every day (less energy since he started the right hip pain. ) 5. Poor appetite or overeating: not at all 6. Feeling bad about yourself - or that you are a failure or have let yourself or your family down: not at all 7. Trouble concentrating on things, such as reading the newspaper or watching television: not at all 8. Moving or speaking so slowly that other people could have noticed. Or the opposite - being so fidgety or restless that you have been moving around a lot more than usual: not at all 9. Thoughts that you would be better off or of hurting yourself in some way: not at all Total score: 7 Source: Developed by Drs. Dalton Chambers, Charmaine Galloway, Abrahan Keene and colleagues, with an educational alex from [employer]. Thrive Questionnaire Date Thrive assessed: 04/13/25 I am a: Patient Within the past 12 months, did the food you bought not last and you didn't have the money to get more?: Never true Within the past 12 months, did you worry whether your food would run out before you got money to buy more?: Never true Do you have trouble paying for medicines?: No Do you have trouble getting transportation to medical appointments?: No Do you have trouble paying your heating and electricity bill?: No Do you have trouble taking care of your child, family member or friend?: No Do you have trouble with day-to-day activities such as bathing, preparing meals, shopping, managing finances, etc.?: No Are you currently unemployed and looking for a job?: No Are you interested in more education?: No THRIVE Score: 0 AUDIT C Alcohol Use Questionnaire (AUDIT-C) 1. How often do you have a drink containing alcohol?: Monthly or less 2. How many drinks containing alcohol do you have on a typical day when you are drinking?: 1 or 2 3. How often do you have six or more drinks on one occasion?: Less than monthly Total Score: 2 BELTRAN-7 AMB Questionnaire BELTRAN-7 Date BELTRAN - 7 assessed: 04/13/25 Feeling nervous, anxious, or on edge: 3 = Nearly every day (per pt he has a lot of anxiety. ) Not being able to stop or control worryin = Not at all Worrying too much about different things: 0 = Not at all Trouble relaxin = Not at all Being so restless that it is hard to sit still: 0 = Not at all Becoming easily annoyed or irritable: 0 = Not at all Feeling afraid as if something awful might happen: 0 = Not at all Total BELTRAN-7 score (0-4 normal; 5-9 mild; 10-14 moderate; 15-21 severe): 3 Source: Developed by Drs. Dalton Chambers, Charmaine Galloway, Abrahan Keene and colleagues, with an educational alex from [employer]. Review of Systems Const Details: CONSTITUTIONAL Negative HEAD/NECK Negative EAR/NOSE/MOUTH/THROAT Reports nasal congestion, exacerbated by stress, causing disrupted sleep RESPIRATORY Negative CARDIOVASCULAR Negative GASTROINTESTINAL Negative MUSCULOSKELETAL Reports groin muscle strain affecting back and sleep, difficulty with mobility, and history of cervical spine surgery. NEUROLOGICAL Reports symptoms consistent with carpal tunnel syndrome, including numbness and weakness in hands. PSYCHIATRIC Negative Physical exam (Primary Care) Vital Signs: Last Vital Signs Temp 97.2 F 04/13/25 16:12 Pulse 58 04/13/25 16:12 BP 148/80 H 04/13/25 16:12 Pulse Ox 98 04/13/25 16:12 Oxygen Delivery Method Room Air 04/13/25 16:12 BMI result Body Mass Index 29.6 GENERAL Well developed, Overweight, in no apparent distress HEENT Head-Normocephalic Eyes- PERRLA, EOMI, Conjuctiva clear, lids WNL Ears- Canals clear, TMs WNL Mouth/Throat-No lesions, no erythema, no exudate Neck- Supple, No lymphadenopathy, thyroid WNL RESPIRATORY Normal I:E, Clear to auscultation CARDIOVASCULAR Regular, rate and rhythm, No murmurs or rubs GASTROINTESTINAL Soft, nontender, normal bowel sounds, no masses MUSCULOSKELETAL Right hip-full ROM, nontender with palpation, Tender with motion, no crepitus NEUROLOGICAL Gait normal PSYCHIATRIC Oriented to person, place and time Mood and affect WNL Appearance WNL Speech WNL Thought processes WNL Tobacco/Smoking Status: Tobacco use Status Tobacco use date assessed 04/13/25 04/13/25 16:13 Patient Tobacco Use Status Current everyday Tobacco ( 04/13/25 16:30 only smoke marijuana due to stress and anxiety) e-Cigarette/Vaping Use Currently Using (only smoke 04/13/25 16:30 marijuana due to stress and anxiety) PHQ-9: PHQ-9 Score PHQ-9: Total score 7 04/13/25 16:30 Thrive Assessment: Date of Thrive Assessment Date Thrive assessed 04/13/25 04/13/25 16:13 Coding Level of Care Code New Pt New Pt Level 4 (24147) Patient Type New Diagnoses Diabetes E11.9 Diabetes mellitus type: type 2 Diabetes mellitus termite control representative insulin use: with termite control representative use Diabetes mellitus complication status: with neurologic complications Diabetic polyneuropathy associated with type 2 diabetes mellitus E11.42 Diabetes mellitus type: type 2 Diabetes mellitus complication detail: diabetic polyneuropathy Hypertension due to endocrine disorder I15.2 Hypertension type: secondary to endocrine disorders Elevated cholesterol E78.00 Right hip pain M25.551 Allergic rhinitis J30.9 Right shoulder pain M25.511 Factor V Leiden D68.51 Time Spent (min) 35 Comment Time spent on Chart review, H&P, Patient education, placing orders, documentation Assessment & Plan Assessment & Plan (1) Diabetes: Comment: IDDM Code(s): E11.9 - Type 2 diabetes mellitus without complications Category: Medical Qualifiers: Diabetes mellitus type: type 2 Diabetes mellitus care home insulin use: with termite control representative use Diabetes mellitus complication status: with neurologic complications Plan: The plan includes continuing glipizide and insulin therapy, with a focus on achieving better glycemic control. Regular monitoring of blood glucose levels and HbA1c is recommended. Patient to follow up in 6 weeks or sooner if symptoms persist or worsen. (2) Diabetic neuropathy: Code(s): E11.40 - Type 2 diabetes mellitus with diabetic neuropathy, unspecified Category: Medical Qualifiers: Diabetes mellitus type: type 2 Diabetes mellitus complication detail: diabetic polyneuropathy Qualified Code(s): E11.42 - Type 2 diabetes mellitus with diabetic polyneuropathy Plan: Will refer to PT to help with balance. (3) Hypertension: Comment: BP today was 140/80 Code(s): I10 - Essential (primary) hypertension Category: Medical Qualifiers: Hypertension type: secondary to endocrine disorders Qualified Code(s): I15.2 - Hypertension secondary to endocrine disorders Plan: Continue Lisinopril. Patient will continue current medications. Will monitor. Patient will follow up in 3 months. (4) Elevated cholesterol: Code(s): E78.00 - Pure hypercholesterolemia, unspecified Category: Medical Plan: Continue Atorvastatin. Patient will continue current medications. Will monitor. Patient will follow up in 3 months. (5) Right hip pain: Code(s): M25.551 - Pain in right hip Category: Medical Plan: The patient will be referred to physical therapy to address the groin strain and associated mobility issues. An x-ray of the hip will be conducted to assess for any underlying bony abnormalities. Patient to follow up in 6 weeks or sooner if symptoms persist or worsen. (6) Allergic rhinitis: Code(s): J30.9 - Allergic rhinitis, unspecified Category: Medical Plan: The stress management are advised.patient will start cetirizine to manage allergy-related nasal congestion. Patient to follow up as needed if symptoms persist or worsen. (7) Right shoulder pain: Code(s): M25.511 - Pain in right shoulder Category: Medical Plan: Will get Xray. Patient to follow up in 6 weeks or sooner if symptoms persist or worsen. (8) Factor V Leiden: Code(s): D68.51 - Activated protein C resistance Category: Medical Plan: Patient is on Warfarin and followed by Coumadin clinic Plan I discussed with the patient the importance of managing diabetes mellitus through medication adherence and regular monitoring of blood glucose levels. We also talked about the need for physical therapy to address the groin muscle strain and improve mobility. For nasal congestion, I recommended starting cetirizine and advised on avoiding allergens and managing stress. Physical therapy was also suggested for carpal tunnel syndrome to improve hand function. Orders: Orders Complete Blood Count Auto Diff 04/13/25 E11.9 - Type 2 diabetes mellitus without complications, Z00.00 - Encounter for general adult medical examination without abnormal findings TSH reflex Free T4 04/13/25 I10 - Essential (primary) hypertension XR shoulder RT min 2V 04/13/25 M25.511 - Pain in right shoulder XR hip RT w PEL1V 04/13/25 M25.551 - Pain in right hip Comprehensive Met. Panel 04/13/25 E11.9 - Type 2 diabetes mellitus without complications, I10 - Essential (primary) hypertension, Z00.00 - Encounter for general adult medical examination without abnormal findings Hemoglobin A1c 04/13/25 E11.9 - Type 2 diabetes mellitus without complications PT Evaluation and Treatment 04/13/25 M25.551 - Pain in right hip Medications: New glipizide 10 mg (2 x 5 mg) PO BID 180 tabs 1RF for diabetes cetirizine (Allergy Relief (cetirizine)) 10 mg PO DAILY 90 tabs 1RF Patient Instructions: - Continue taking glipizide and insulin as prescribed. Get labs to monitor - Monitor blood glucose levels regularly and report any significant changes. - Attend physical therapy sessions for groin strain and hand exercises. - Start taking cetirizine daily for nasal congestion. - Avoid known allergens and manage stress to help reduce nasal congestion.
--- OUTSIDE RECORDS SUMMARY | 2025-04-13 18:43 | XMS_ITS | Clinical Summary ---
Author Organization [employer] Address [address] [place] [address] [address] [place] [address] Care Team Providers Care Grazing Examiner Name Role Phone Unavailable Primary Care Provider [...] Date Diagnosed Date Colon cancer screening 09/12/2024 assisted (current) use of anticoagulants 2024 oysterman (current) use of oral hypoglycemic elaine gs 09/12/2024 Closed left ankle fracture 11/18/2023 Closed nondisplaced fracture of lateral malleolus of left fibula 08/30/2023 Social History Tobacco Use Types Packs/Day Years [...] Mass Index - - Plan of Treatment Health Maintenance Due Date Last Done Comments CT Colonography 1953 Colonoscopy 1953 Depression Screening 1953 FIT 1953 Lipid Panel 1953 SDOH Screening 1953 Sigmoidoscopy 1953 Alcohol/Substance Use Screening 1965 Hepatitis C Screening 1971 DTaP/Tdap/Td Vaccines (1 - Tdap) 1972 Pneumococcal Vaccine: 50+ Years (1 of 1 - PCV) 2003 Zoster Vaccines (1 of 2) 2003 Dental Oral Exam 02/27/2025 08/29/2024, 03/03/2024 Dental Prophylaxis 02/27/2025 08/29/2024, 0 02/26/2024, 02/20/2023 COVID-19 Vaccine ( season) 2025 06/21/2022, 06/09/2021, 11/16/2020, Additional history exists Influenza Vaccine (#1) 2025 , 05/11/2020, 04/06/2019, Additional history exists Dental X-Ray: Bitewings 05/07/2025 05/06/20 24, 02/26/2024, 07/24/2023, Additional history exists FOBT 06/02/2025 06/02/2024 Tobacco Screening 10/08/2025 10/08/2024 Dental X-Ray: Full Mouth 03/25/2027 03/24/2024, 02/04 [...] patient's age to complete this topic Meningococcal B Vaccine Aged Out No l onger eligible based on patient's age to complete [...] ESTABLISHED PATIENT Routine 08/29/2024 10:00 AM EST BITEWING - SINGLE RADIOGRAPHIC IMAGE Routine 05/06/2024 11:30 AM EDT PANORAMIC RADIOGRAPHIC IMAGE Routine 03/24/2024 9:00 AM EDT from Last 3 Months or Most Recently Relevant to Health Maintenance
--- OUTSIDE RECORDS SUMMARY | 2025-04-13 18:43 | XMS_ITS | Encounter Summary ---
Author Organization [facility] Address [address] [place] [address] Phone Care Team Providers Care Chief Information Security Officer Name Role Phone Pcp, Unknown Primary Care Provider Bala Cleaning MD Primary Care Provider Encounter Details Date Type Department Care Team (Late st Contact Info) Description 05/26/2017 Ancillary Orders [facility], X-Ray - [facility] [address] [place] [address] Paige Hinton, PASergeiC [address] [place] [address], [address] [place] [address] [email or web address] Kidney stone Social History Tobacco Use Types Packs/Day Years Used Date Smoking Tobacco: Never Assessed Sex and Gender Information Value Date Recorded Sex Assigned at Not on file Legal Sex Male 9:58 PM EDT Gender Identity Not on file Sexual Orientation Not on file documented as of this encounter Plan of Treatment Not on file documented as of this encounter Results * US Kidneys (07/04/2017 3:55 PM EST) Anatomical Region Laterality Modality Abdomen, Kidney Ultrasound 07/04/2017 5:07 PM EST Impressions 07/04/2017 5:10 PM EST Stable left renal cortical cyst and 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 No new intrarenal calculi, hydronephrosis, or mass lesions apparent. POS [id number] Narrative 07/04/2017 5:10 PM EST COMPARISON: 06/24/2015 CT and 06/05/2016 ultrasound FINDINGS: The kidneys are grossly stable in size with right measuring 13.9 x 5.5 cm and the left 14.5 x 6.7 cm in a longitudinal plane. There is a chronic hyperechoic non-shadowing nonvascular focus again seen in the right lower pole measuring 9 x 8 x 7 mm (previously 13 x 7 x 5 mm) which could reflect angiomyolipoma not evident on the CT. No shadowing intrarenal calculi are demonstrated on either side. There is a chronic left lateral interpolar cyst measuring 1.3 x 1.3 x 1.2 cm, unchanged in size. No hydronephrosis noted on either side. Procedure Note Jazmine Avila MD - 07/04/2017 COMPARISON: 06/24/2015 CT and 06/05/2016 ultrasound FINDINGS: The kidneys are grossly stable in size with right measuring 13.9 x 5.5 cmand the left 14.5 x 6.7 cm in a longitudinal plane. There is a chronichyperechoic non- shadowing nonvascular focus again seen in the right lowerpole measuring 9 x 8 x 7 mm (previously 13 x 7 x 5 mm) which could reflectangiomyolipoma not evident on the CT. No shadowing intrarenal calculi aredemonstrated on either side. There is a chronic left lateral interpolarcyst measuring 1.3 x 1.3 x 1.2 cm, unchanged in size. No hydronephrosisnoted on either side. IMPRESSION: Stable left renal cortical cyst and possible right lower poleangiomyolipoma without significant interval change from 06/05/2016. Nonew intrarenal calculi, hydronephrosis, or mass lesions apparent. POS [id number] us Paige Hinton PA-C IMG US RENAL Final Result documented in this encounter Visit Diagnoses Diagnosis Kidney stone Calculus of kidney Kidney stone Calculus of kidney documented in this encounter Care Teams Chief Information Security Officer Relationship Specialty Start Date End Date Pcp, Unknown PCP - General 05/26/17 07/03/17 Bala Waterman MD [address] [place] [address] Dr [place], [place] [address] PCP - General Internal Medicine 07/04/17 documented as of this encounter Additional Source Comments The information contained in this document represents components of the legal health record. It is not the complete legal health record.[facility]
--- OUTSIDE RECORDS SUMMARY | 2025-04-13 18:43 | XMS_ITS | Patient Health Record ---
Author Organization Dalton Bucio III, MD Address [address] [place] [address] [place] [phone] Care Team Providers Care Auto Fleet Manager Name Role Phone Bala Waterman MD Primary Care Provider Dalton Eubanks Unavailable [phone] Allergies Allergen (clinical drug ingredient) Drug/Non Drug [...] 98.3 degrees Fahrenheit 10/07/2024 Blood pressure diastolic 80 mm Hg 10/07/2024 Height 5'11 in 10/07/2024 Blood pressure systolic 145 mm Hg 10/07/2024 Weight 221 lbs 10/07/2024 BMI 30.82 kg/m2 10/07/2024 Encounters Encounter Location Date Provider Diagnosis Dalton Bucio III, MD [address] [place] [address] [place] [id number] 10/07/2024 Dalton Bucio Preoperative clearan ce Z01.818 [...] his INR becomes therapeutic. Plan Of Treatment No Information Insurance Providers Payer Name Payer Address Payer Phone Subscriber Number Group Number Insured Name Patient Relationship to Insured Coverage Start Date Coverage End Date [facility] [address] [place], [place] [id number] ElenShawn Self - patient is the insured MEDICARE [employer] [address] [place] [address] [id number] ElenShawn Self - patient is the insured MED[place] [address] [place], [place] [phone] [id number] Shawn Myrick Self - patient is the insured Medical (General) History Medical History History ICD Code Benign prostatic hypertrophy Venous insufficiency Low back pain Diabetes mellitus Obesity Hyperlipidemia Stage I chronic renal disease Umbilical hernia Osteoarthritis in both knees History of kidney stone Sleep apnea History of protein C abnormality
--- OUTSIDE RECORDS SUMMARY | 2025-04-13 18:43 | XMS_ITS | Encounter Summary ---
Author Organization [facility] Address [address] [place] [address] [address] [place] [address] Care Team Providers Care Train System Operator Name Role Phone Unavailable Primary Care Provider Unavailabl e Reason for Visit * Reason Comments Med Refill Encounter Details Date Type Department Care Team ([facility] st Contact Info) Description 07/06/2024 Refill [facility] [address] [place] [address] Chase Duggan DMD [address] [place] [address] Periodontal abscess Social History Tobacco Use Types [...] documented in this encounter Plan of Treatment Not on file documented as of this encounter Visit Diagnoses Diagnosis Periodontal abscess Aggressive periodontitis, localized documented in this encounter
--- OUTSIDE RECORDS SUMMARY | 2025-04-13 18:43 | XMS_ITS | Encounter Summary ---
Author Organization [employer] Address [address] [place] [address] [address] [address] Care Team Providers Care Tobacco Weigher Name Role Phone Unavailable Primary Care Provider Unavailabl e Encounter Details Date Type Department Care Team (Latest Contact Info) Description 09/20/2021 Abstract [facility] CONVERSIONS Dental, Provider, DDS Social [...]
--- OUTSIDE RECORDS SUMMARY | 2025-04-13 18:43 | XMS_ITS | Encounter Summary ---
Author Organization [facility] Address [address] [place] [address] Phone Care Team Providers Care Survey Crew Chief Name Role Phone Bala Waterman MD Primary Care Provider Encounter Details Date Type Department Care Team (Late st Contact Info) Description 05/09/2018 Ancillary Orders Virtual Department [address] [place] [address] Keely Pollock MD [address] [place] [id number] Kidney stone Social History Tobacco Use Types Packs/Day Years Used Date Smoking Tobacco: Never Assessed Sex and Gender Information Value Date Recorded Sex Assigned at Not on file Legal Sex Male 9:58 PM EDT Gender Identity Not on file Sexual Orientation Not on file documented as of this encounter Plan of Treatment Not on file documented as of this encounter Visit Diagnoses Diagnosis Kidney stone Calculus of kidney documented in this encounter Care Teams Survey Crew Chief Relationship Specialty Start Date End Date Bala Waterman MD [address] [place] [phone] PCP - General Internal Medicine 07/04/17 documented as of this encounter Additional Source Comments The information contained in this document represents components of the legal health record. It is not the complete legal health record.[facility]
--- OUTSIDE RECORDS SUMMARY | 2025-04-13 18:43 | XMS_ITS | Clinical Summary ---
Author Organization [facility] Address [address] [place] [address] Care Team Providers Care Bowling Pin Refinisher Name Role Phone Bala Waterman MD Primary Care Provider [phone] Social History Tobacco Use Types Packs/Day Years [...] 1 - PCV) 2018 Influenza Vaccine (#1) 2025 RSV Adult > 60+ Yrs or Pregn ant (1 - 1-dose 75+ series) 2028 Hepatitis B Vaccines Aged Out No long er eligible based on patient's age to complete this topic RSV Ped < 20 months Aged Out No longe r eligible based on patient's age to complete this topic Care Teams Bowling Pin Refinisher Relationship Specialty Start Date End Date Bala Waterman MD [address] [place] [address] Dr [address] [place] [address] PCP - General Dry Lumber Grader 03/31/19
--- OUTSIDE RECORDS SUMMARY | 2025-04-13 18:43 | XMS_ITS | Patient Health Record ---
Author Organization [facility] Address [address] [place] [address] Care Team Providers Care Psychiatry Instructor Name Role Phone Columba (RETIRED) Bala BOWIE Primary Care Provide narcisa Schuster Jr, Vick Unavailable Allergies No Known Allergies Results Component Value Reference Range Notes Prothrombin Time INR Reviewed date:07/11/2024 03:00:05 PM Interpretation: Performing Lab:[facility], [address] [place] [phone] Notes/Report: Prothrombin Time 11.7 10.9-12.4 SEC INTERNATIONAL [...] Blood Reviewed date:07/11/2024 03:00:01 PM Interpretation: Performing Lab:[facility], [address] [place] [phone] Notes/Report: Glucose, Whole Blood 110 60-115 mg/dL METER # : [id number] Pathology Reviewed date:07/16/2024 08:36:50 AM Interpretation: Performing Lab:[facility], [address] [place] [phone] Notes/Report: Reason For Referral No Information Medications Medication [...] the procedure for 1 day 11/12/2019 Active Immunizations Vaccine Route Administration Date Status Comme nts Influenza Unknown 04/06/2019 Administered Social History Tobacco Use: Social History Observation Description Date Details (start date - stop date) Never Smoker NA - NA Tobacco Use/Smoking Question Answer Notes Patient is a nonsmoker Alcohol Screen Question Answer Notes Did you have a drink containing alcohol in the p ast year? No Points 0 Interpretation Negative Problems Problem Type SNOMED Code ICD Code Onset Dates Problem Status W/U Status Risk Notes Problem 482308589 Colon cancer screening (Z12.11) Active confirmed Problem 090284224 care home (current) use of anticoagulants (Z79.01) Active confirmed Problem 496932935 Abnormal finding s in stool (R19.5) Active confirmed Problem 839781075122195 technician terminal and repeater (current) use of oral hypoglycemic drugs (Z79.84) Active confirmed Problem 597358213 Personal history of colonic polyps (Z86.0100) Active confirmed Vital Signs Blood pressure diastolic 00 mm Hg 06/12/2024 Height 71 in 06/12/2024 Blood pressure systolic 00 mm Hg 06/12/2024 Weight 218 lbs 06/12/2024 BMI 30.40 kg/m2 06/12/2024 Encounters Encounter Location Date Provider Diagnosis [facility] Outpatient [address] [place], [place] [id number] 07/11/2024 Vick Schuster Jr Colon polyps K63.5 ; Heme positive stool R19.5 and Personal history of colonic polyps Z86.0100 [facility] [address] [place] [address] 06/12/2024 Vick Schuster Jr Abnormal findings in stool R19.5 ; Personal history of colonic polyps Z86.0100 and care home (current) use of anticoagulants Z79.01 [facility] [address] [place] [address] 07/02/2024 Vick Schuster Jr [facility] [address] [place] [address] 07/16/2024 Vick Schuster Jr Assessments Encounter Date Diagnosis (ICD Code) Assessment Notes Treatment Notes Treatment Clinical Notes Section Notes 07/11/2024 Colon polyps (ICD-10 - K63.5) 07/11/2024 Heme positive stool (ICD-10 - R19.5) 06/12/2024 Abnormal findings in stool (ICD-10 - R19.5) Colonoscopy material was printed We discussed colonoscopy today. We discussed risks and benefits of the procedure today. He understands these and agrees to proceed. This will be scheduled at his convenience. He is advised to stop warfarin and aspirin one week before the procedure. He should stop insulin and glipizide the day before the procedure. 06/12/2024 Personal history of colonic polyps (ICD-10 - Z86.0100) We discussed colonoscopy today. We discussed risks and benefits of the procedure today. He understands these and agrees to proceed. This will be scheduled at his convenience. He is advised to stop warfarin and aspirin one week before the procedure. He should stop insulin and glipizide the day before the procedure. 07/11/2024 Personal history of colonic polyps (ICD-10 - Z86.0100) 06/12/2024 care home (current) use of anticoagulants (ICD-10 - Z79.01) We discussed colonoscopy today. We discussed risks and benefits of the procedure today. He understands these and agrees to proceed. This will be scheduled at his convenience. He is advised to stop warfarin and aspirin one week before the procedure. He should stop insulin and glipizide the day before the procedure. Plan Of Treatment Future Test Test Name Order Date COLONOSCOPY 11/12/2019 COLONOSCOPY 06/12/2024 Insurance Providers Payer Name Payer Address Payer Phone Subscriber Number Group Number Insured Name Patient Relationship to Insured Coverage Start Date Coverage End Date [facility] [address] [place], [place] [id number] SVETLANA NUR Self - patient is the insured Medical (General) History Medical History History ICD Code type II diabetes factor V deficiency nephrolithiasis mechanical fall x2 due to unsteady gait Colonoscopy in 06/25, multiple tubular a denomas, three-year followup Surgical History Surgery Date(Month/Year) neck surgery removed partial disc - fell in fall 2018 w/broken ribs 04/2019 hip replacement elbow surgery
--- OUTSIDE RECORDS SUMMARY | 2025-04-13 18:43 | XMS_ITS | Encounter Summary ---
Author Organization [facility] Address [address] [place] [address] Phone Care Team Providers Care Recycling Sorter Name Role Phone Bala Waterman MD Primary Care Provider Encounter Details Date Type Department Care Team (Late st Contact Info) Description 08/12/2023 Procedure Pass [facility], Ct Scan - [facility] [address] [place] [address] Social History Tobacco Use Types Packs/Day Years Used Date Smoking Tobacco: Never Assessed Education Answer Date Recorded Are you interested in more education? Not on mohit e 12/01/2022 Are you concerned about learning? Not on file 12/01/2022 No 12/01/2022 No 12/01/2022 Digital Access Answer Date Recorded No 01/01/2023 No 01/01/2023 Reliable internet access at home? Not on file 01/01/2023 Device with a working camera? Not on file Intimate Partner Violence Answer Date R ecorded Are you denied basic needs s uch as food, clothing, or medical care? No 08/12/2023 In the past 12 months have y ou been in a relationship with a person who hurts, threatens, or tries to control you? No 08/12/2023 Are you denied basic needs s uch as food, clothing, or medical care? No 08/12/2023 In the past 12 months have y ou been in a relationship with a person who hurts, threatens, or tries to control you? No 08/12/2023 Sex and Gender Information Value Date Recorded Sex Assigned at Not on file Legal Sex Male 9:58 PM EDT Gender Identity Not on file Sexual Orientation Not on file documented as of this encounter Functional Status * Calculated C-SSRS Risk Score (Lifetime/Recent) Answer Date of Assessment Author No Risk Indicated 08/12/2023 7:26 PM Sammy Sterling RN * [place] Suicide Severity Rating Scale (Screener/Recent Self-Report) Question Answer Date of Assessment Author 1. Wish to be (Past 1 Month) No 024 7:26 PM Sammy Fischer, SVEN 2. Non-Specific Active Suici cyndi Thoughts (Past 1 Month) No 08/12/2023 7:26 PM Kiarra Fischer RN 6. Suicidal Behavior (Lifetime) No 7:26 PM Sammy Fischer, SVEN documented as of this encounter Plan of Treatment Not on file documented as of this encounter Visit Diagnoses Not on filedocumented in this encounter Care Teams Recycling Sorter Relationship Specialty Start Date End Date Bala Waterman MD [address] [place] [address] [place] [address] PCP - General Internal Medicine 07/04/17 documented as of this encounter Additional Source Comments The information contained in this document represents components of the legal health record. It is not the complete legal health record.[facility]
--- OUTSIDE RECORDS SUMMARY | 2025-04-13 18:43 | XMS_ITS | Encounter Summary ---
Author Organization [facility] Address [address] [place] [address] Phone Care Team Providers Care Mobile Home Set Up Person Name Role Phone Bala Waterman MD Primary Care Provider Encounter Details Date Type Department Care Team (Late st Contact Info) Description 08/12/2023 Procedure Pass [facility], Ct Scan - [facility] [address] [place] [address] Social History Tobacco Use Types Packs/Day Years [...] 08/12/2023 7:26 PM Sammy Sterling RN * [place] Suicide Severity Rating Scale (Screener/Recent Self-Report) Question [...] on filedocumented in this encounter Care Teams Mobile Home Set Up Person Relationship Specialty Start Date End Date Bala Waterman MD [address] [place] [address] [place] [address] PCP - General Internal Medicine 07/04/17 documented as of this encounter Additional Source Comments The information contained in this document represents components of the legal health record. It is not the complete legal health record.[facility]
--- OUTSIDE RECORDS SUMMARY | 2025-04-13 18:43 | XMS_ITS | Encounter Summary ---
Author Organization [facility] Address [address] [place] [address] Phone Care Team Providers Care Plowing Gardens Name Role Phone Bala Waterman MD Primary Care Provider Encounter Details Date Type Department Care Team (Late st Contact Info) Description 08/16/2023 Procedure Pass [facility], Ct Scan - [facility] [address] [place] [address] Social History Tobacco Use Types Packs/Day Years [...] on filedocumented in this encounter Care Teams Plowing Gardens Relationship Specialty Start Date End Date Bala Waterman MD [address] [place] [address] [place] [address] PCP - General Internal Medicine 07/04/17 documented as of this encounter Additional Source Comments The information contained in this document represents components of the legal health record. It is not the complete legal health record.[facility]
--- OUTSIDE RECORDS SUMMARY | 2025-04-13 18:43 | XMS_ITS | Clinical Summary ---
Author Organization [facility] Address [address] [place] [address] Phone Care Team Providers Care Journeyman Pipefitter Name Role Phone Bala Waterman MD Primary Care Provider Allergies No known active allergies Medications glipiZIDE (GLUCOTROL) 5 MG tablet Take 10 mg by mouth 2 (two) times a day before meals. 3 Active atorvastatin (LIPITOR) 20 MG tablet Take 20 mg by mouth every evening. 3 Active lisinopril (PRINIVIL,ZESTR IL) 5 MG tablet Take 5 mg by mouth every evening. Active warfarin (COUMADIN) 5 MG tablet Take 5 mg by mouth every evening. Active BASAGLAR KWIKPEN U-100 INSULIN 100 unit/mL (3 mL) InPn injection pen Inject 25 Units under the skin 2 (two) times a day as needed (BGL >120). 3 Active tadalafiL (CIALIS) 2.5 mg Tab Take 2.5 mg by mouth daily. Active insulin lispro (ADMELOG, HUMALOG) 100 unit/mL injection pen Inject under the skin 3 (three) times a day with meals. 09/05/19 24 Discontinu ed(No longer taking) Active Problems Problem Noted Date Diagnosed Date Closed left ankle fracture 11/18/2023 Closed nondisplaced fracture of lateral malleolus of left fibula 08/30/2023 Social History Tobacco Use Types Packs/Day Years Used Date Smoking Tobacco: Never Smokeless Tobacco: Never Tobacco Cessation:Counseling Given: Not Answered Alcohol Use Standard Drinks/Week Comments Not Currently 0 (1 standard drink = 0.6 oz pur e alcohol) Home Health Assessment: Transportation Answer Date Recorded Lack of Transportation (Medical) No 11/23/2023 Lack of Transportation (Non-Medical) No 11/23/2023 Patient Unable or Declines to Respond No 11/23/2023 Education Answer Date Recorded Are you interested [...] on file Sexual Orientation Not on file Last Filed Vital Signs Vital Sign Reading Time Taken Comments Blood Pressure 142/80 11/23/2023 11:33 AM EDT Pulse 62 11/23/2023 11:33 AM EDT Temperature 36.3 C (97.4 F) 11/23/2023 11:33 AM EDT Respiratory Rate 14 10/25/2023 2:48 PM EDT Oxygen Saturation 98% 11/23/2023 11:33 AM EDT Inhaled Oxygen Concentration - - Weight 99.8 kg (220 lb) 08/23/2023 10:49 AM EST Height 180.3 cm (5' 11 ) 08/23/2023 10:49 AM EST Body Mass Index 30.68 08/23/2023 10:49 AM EST Plan of Treatment Health Maintenance Due Date Last Done Comments Adult Td,Tdap Booster 1953 LIPID PANEL 1953 DEPRESSION SCREENING 1965 HEPATITIS C SCREENING 1971 COLONOSCOPY 1998 FIT TEST 1998 FOBT 1998 SIGMOIDOSCOPY 1998 VIRTUAL COLONOSCOPY 1998 PNEUMOCOCCAL VACCINES (50+ years) (1 of 1 - PCV) 2003 ZOSTER VACCINES (1 of 2) 2003 CREATININE LEVEL 08/14/2024 08/14/2023 POTASSIUM LEVEL 08/14/2024 08/14/2023 INFLUENZA VACCINE (#1) 2025 , 05/11/2020, 07/10/2018, Additional history exists COVID-19 VACCINE (2024- season) 2025 06/21/2022, 06/09/2021, 11/16/2020, Additional history exists COLOGUARD 06/02/2027 06/02/2024 COLORECTAL CANCER SCREENING 06/02/2027 RSV VACCINE (1 - 1-dose 75+ series) 2028 SMOKING STATUS SCREENING (Once After 26 Yrs) Completed 01/08/2024 HEPATITIS A VACCINES Aged Out No long er eligible based on patient's age to complete this topic HIB VACCINES Aged Out No longer eligi ble based on patient's age to complete this topic MENINGOCOCCAL VACCINES (ACWY) Aged Out No longer eligible based on patient's age to complete this topic MENINGOCOCCAL VACCINES (B) Aged Out N o longer eligible based on patient's age to complete this topic Medical Devices Not on file Procedures Procedure Name Priority Date/Time Associated Diagnosis Comments COMPREHENSIVE METABOLIC PANEL Routine 08/14/2023 9:16 AM EST Factor V Leiden from Last 3 Months or Most Recently Relevant to Health Maintenance Results * (ABNORMAL) Comprehensive metabolic panel (08/14/2023 9:16 AM EST) SODIUM 139 133 - 146 mmol/L [facility] POTASSIUM 4.0 3.3 - 5.1 mmol/L [facility] CHLORIDE 101 96 - 108 mmol/L [facility] CO2 26 21 - 35 mmol/L [facility] BUN 17 6 - 19 mg/dL [facility] CREATININE 0.80 0.5 - 1.5 mg/dL [facility] GLUCOSE 154(H) 70 - 99 mg/dL [facility] ALBUMIN 4.3 3.9 - 4.8 g/dL [facility] TOTAL PROTEIN 6.8 6.5 - 8.0 g/dL [facility] CALCIUM 9.3 8.4 - 10.3 mg/dL [facility] ALKALINE PHOSPHATASE 122(H) 39 - 117 U/L [facility] TOTAL BILIRUBIN 0.8 0.0 - 1.2 mg/dL [facility] AST 20 0 - 37 U/L [facility] ALT 27 0 - 40 U/L [facility] GLOBULIN 2.5 1 - 4.8 g/dL [facility] EGFR 95 >59 mL/min/1.7 3m2 [facility] Comment:Estimated glomerular filtration rate calculated using the CKD-EPI refit equation. ANION GAP 16 10 - 20 mmol/L [facility] Blood 08/14/2023 9:16 AM EST 08/14/2023 10:54 AM EST Anne Villagomez MD LAB BLOOD ORDERABLES Katie carson Result Performing Organization Address City/State/[facility] Co de Phone Number [facility] [address] [place] [address] from Last 3 Months or Most Recently Relevant to Health Maintenance Insurance MEDICARE PART A & B [facility] FULL BLUE [place] MEDICARE PPO BLUE REPLACEMENT MEDICARE PART A & B [facility] [place]ULL [place] P[place] BLUE REPLAC[place] MEDICARE PART A & B [facility] HEALTH SAFETY NET FULL MEDICARE PART A & B [facility] HEALTH SAFETY NET FULL MEDICARE PART A & B [facility] F[facility] MEDICARE PPO BLUE REPLACEMENT MEDICARE PART A & B [facility] FULL [facility] PART A & B [facility] SAFETY NET [place] BLUE RE[place] MEDICARE PART A & B [facility] NET FULL [place] P[place] BLUE REPLACEMENT MEDICARE PART A & B [facility] HEALTH SAFETY NET FULL BLUE [place] MEDICARE PPO BLUE REPLACEMENT Advance Directives For more information, please contact: [phone] (9AM - 5PM [facility], Sunday-Sunday) Documents on File Type Date Recorded Patient Sports Team Manager Expl anation Healthcare Proxy 08/13/2023 KEVIN HCP Seb r Copy Healthcare Agents on File Name Relationship Healthcare Agent Relationship Communication Iazbela Myrick Mother .Primary Health Care Agent (Proxy form on file) Care Teams Journeyman Pipefitter Relationship Specialty Start Date End Date Bala Waterman MD [address] [place] [address] [place] [address] PCP - General Internal Medicine 07/04/17 Additional Source Comments The information contained in this document represents components of the legal health record. It is not the complete legal health record.[facility]
== END 2025-04-13 17:04 | disposition home or self-care (01) ==
LOC: HO.HMCHD 16:03
PROVIDERS: PCP Internal Medicine; Visit Provider Physician Assistant Medical
DX: E11.42 Type 2 diabetes mellitus with diabetic polyneuropathy (principal); I15.2 Hypertension secondary to endocrine disorders; E78.00 Pure hypercholesterolemia, unspecified; M25.551 Pain in right hip; J30.9 Allergic rhinitis, unspecified; M25.511 Pain in right shoulder; D68.51 Activated protein C resistance

== ENCOUNTER → 2025-04-13 16:03 | Outpatient (BNVA) | payer MEDICARE, SELFPAY | PROVIDERS: PCP Internal Medicine; Visit Provider Physician Assistant Medical | DX: E11.42 Type 2 diabetes mellitus with diabetic polyneuropathy (principal); I15.2 Hypertension secondary to endocrine disorders; I10 Essential (primary) hypertension; E78.00 Pure hypercholesterolemia, unspecified; M25.551 Pain in right hip; J30.9 Allergic rhinitis, unspecified; M25.511 Pain in right shoulder; D68.51 Activated protein C resistance; Z79.4 Long term (current) use of insulin; R20.0 Anesthesia of skin; R29.91 Unspecified symptoms and signs involving the musculoskeletal system; Z72.0 Tobacco use; Z13.30 Encounter for screening examination for mental health and behavioral disorders, unspecified | CPT/HCPCS: 99202 ==

== ENCOUNTER 2025-04-21 16:28 | Outpatient (REF) | payer MEDICARE, SELFPAY ==
--- OUTSIDE RECORDS SUMMARY | 2024-07-11 07:50 | XMS_ITS ---
Author Organization [facility] Address [address] [place] [address] Care Team Providers Care Residential Child Care Counselor Name Role Phone Columba (RETIRED) Bala BOWIE Primary Care Provide r Vick Echavarria Jr Unavailable REASON FOR VISIT positive cologuard Encounters Encounter Location Date Provider Diagnosis [facility] [address] [place] [phone] 07/11/2024 Vick Schuster Jr Colon polyps K63.5 [...] Notes * LIUDMILA, SVETLANADOB:1955 (70 yo M)Acc No.[id number]:07/11/2024 Progress Notes Patient: SVETLANA MAGANA Provider: Joaquín Schuster MD :1955 A ge:69 Y S ex:Male Date:07/11/2024 Address:[address], [place], [place] Pcp:Bala Waterman (RETIRED )MD Subjective: * Chief [...] 09/11/2023 Generated for Courtney perez/Timothy/Evelioitting on: 0 04/21/2025 07:08 PM EDT
--- OUTSIDE RECORDS SUMMARY | 2024-10-07 09:30 | XMS_ITS ---
Author Organization Dalton Bucio III, MD Address [address] [place] [address] DR ALEMAN Lisa KEVIN BARRAZA [address] Care Team Providers Care Interior Assemblies Developer Prover Name Role Phone Bala Waterman MD Primary Care Provider Dalton Eubanks Unavailable [phone] Allergies Allergen (clinical drug ingredient) Drug/Non Drug [...] Date Provider Diagnosis Dalton Bucio III, MD [address] [place] [address] [place] [address] 10/07/2024 Dalton Bucio Preoperative clearan ce Z01.818 [...] Notes * Shawn NURDOB:1955 (69 yo M)Acc No.[id number]:10/07/2024 Patient: Shawn MAGANA Provider: Tami Bucio MD :1955 A ge:69 Y S ex:Male Date:10/07/2024 Address:[address] Pcp:Bala Waterman MD Subjective: * Chief Complaints: [...] tooth extracted by a dentist at the [facility] on [facility] tomorrow at 2 PM. I have [...] is no record of this at the [facility]. The patient says he has been seen at the [facility]. He has had his warfarin stopped before [...] Bucio MD Date: 0 10/07/2024 Generated for Jrodii chris/Timothy/eTransmitting on: 0 04/21/2025 07:08 PM EDT History and Physical Notes * [...]
--- NOTE | ~2025-04-21 | XR_ITS ---
EXAMINATION: XR SHOULDER, RIGHT CLINICAL INFORMATION: M25.511 - Pain in right shoulder COMPARISON: June 18, 2024 TECHNIQUE: AP external rotation, Grashey, scapular Y, and axillary views of the right shoulder. FINDINGS: Mild degenerative changes are evident with marginal osteophyte involving humeral head and glenoid. There is chronic deformity and irregularity of the AC joint with elevation of distal clavicle. There is a bony exostosis projecting down from the mid clavicle in the region of the coronoid process likely related to remote injury There is no active dislocation. XR/XR shoulder RT min 2V IMPRESSION: Mild degenerative changes of the right shoulder joint. Chronic posttraumatic degeneration and AC joint separation. Electronically signed by: Shabbir Medeiros MD 04/21/2025 05:21 PM EDT
--- NOTE | ~2025-04-21 | XR_ITS ---
EXAMINATION: XR HIP, RIGHT CLINICAL INFORMATION: M25.551 - Pain in right hip COMPARISON: None available. TECHNIQUE: AP pelvis, AP and frog-leg views of the right hip. FINDINGS: Long coiled wire prior projects over the left hemipelvis extending into the left abdomen. Total hip arthroplasty on the left is incompletely imaged. There is moderate heterotopic ossification around the prosthetic joint. Right hip: There is severe superior lateral joint space narrowing with subchondral sclerosis, degenerative cystic change, and marginal osteophytes. There is moderate vascular calcification in the femoral artery. XR/XR hip RT w [id number] IMPRESSION: Severe right hip osteoarthritis. Moderate atherosclerotic disease Electronically signed by: Shabbir Medeiros MD 04/21/2025 05:23 PM EDT
--- OUTSIDE RECORDS SUMMARY | 2025-04-21 19:08 | XMS_ITS | Encounter Summary ---
Author Organization [employer] Address [address] [place] [address] [address], [place] [address] Care Team Providers Care Certified Family Mediator Name Role Phone Unavailable Primary Care Provider Unavailabl e Encounter Details Date Type Department Care Team (Latest Contact Info) Description 09/20/[address] [facility] CONVERSIONS Dental, Provider, DDS Social History Tobacco [...]
--- OUTSIDE RECORDS SUMMARY | 2025-04-21 19:08 | XMS_ITS | Encounter Summary ---
Author Organization [facility] Address [address] [facility] [address] [place] [address] Phone Care Team Providers Care Frozen Pie Maker Name Role Phone Pcp, Unknown Primary Care Provider Bala Cleaning MD Primary Care Provider Encounter Details Date Type Department Care Team (Late st Contact Info) Description 05/26/2017 Ancillary Orders [facility], X-Ray - [facility] [address] [place] [address] Paige Hinton, PASergeiC [address] [place] [address], [address] [place] [address] [email or web address] Kidney stone Social History Tobacco Use Types [...] kidney documented in this encounter Care Teams Frozen Pie Maker Relationship Specialty Start Date End Date Pcp, Unknown PCP - General 05/26/17 07/03/17 Bala Waterman MD [address] [place] [address] Dr [place], [place] [address] PCP - General Internal Medicine 07/04/17 documented as of this encounter Additional Source Comments The information contained in this document represents components of the legal health record. It is not the complete legal health record.[facility]
--- OUTSIDE RECORDS SUMMARY | 2025-04-21 19:08 | XMS_ITS | Clinical Summary ---
Author Organization [employer] Address [address] [place] [address] [address] [place] [address] Care Team Providers Care Field Artillery Fire Control Man Name Role Phone Unavailable Primary Care Provider [...] Date Diagnosed Date Colon cancer screening 09/12/2024 care home (current) use of anticoagulants 2024 care home (current) use of oral hypoglycemic elaine gs [...]
--- OUTSIDE RECORDS SUMMARY | 2025-04-21 19:08 | XMS_ITS | Encounter Summary ---
Author Organization [facility] Address [address] [place] [address] Phone Care Team Providers Care Customer Service Representative Name Role Phone Bala Waterman MD Primary Care Provider Encounter Details Date Type Department Care Team (Late st Contact Info) Description 05/09/2018 Ancillary Orders Virtual Department [address] [place] [address] Keely Pollock MD [address] [place] [address] Kidney stone Social History Tobacco Use Types [...] kidney documented in this encounter Care Teams Customer Service Representative Relationship Specialty Start Date End Date aBla Waterman MD [address] [place] [address] PCP - General Internal Medicine 07/04/17 documented as of this encounter Additional Source Comments The information contained in this document represents components of the legal health record. It is not the complete legal health record.[facility]
--- OUTSIDE RECORDS SUMMARY | 2025-04-21 19:08 | XMS_ITS | Patient Health Record ---
Author Organization Dalton Bucio III, MD Address [address] [place] [address] [place] [address] Care Team Providers Care B2B Sales Manager Name Role Phone Bala Waterman MD Primary Care Provider Dalton Eubanks Unavailable [phone] Allergies Allergen (clinical drug ingredient) Drug/Non Drug [...] Date Provider Diagnosis Dalton Bucio III, MD [address] [place] [address] [place] [id number] 10/07/2024 Dalton Bucio Preoperative clearan ce Z01.818 [...] Insured Coverage Start Date Coverage End Date [facility] [address] [place], [place] [id number] ElenShawn Self - patient is the insured MEDICARE NGS [address] [place] [address] [id number] ElenShawn Self - patient is the insured [place] [address] [place], [place] [phone] [id number] Shawn Myrick Self - patient is the insured Medical (General) History Medical History History ICD Code Benign prostatic hypertrophy Venous insufficiency Low back pain Diabetes mellitus Obesity Hyperlipidemia Stage I chronic renal disease Umbilical hernia Osteoarthritis in both knees History of kidney stone Sleep apnea History of protein C abnormality
--- OUTSIDE RECORDS SUMMARY | 2025-04-21 19:08 | XMS_ITS | Encounter Summary ---
Author Organization [employer] Address [address] [place] [address] 7[address] [place] [address] Care Team Providers Care Pipe Liner Name Role Phone Unavailable Primary Care Provider Unavailabl e Reason for Visit * Reason Comments Med Refill Encounter Details Date Type Department Care Team ([facility] st Contact Info) Description 07/06/2024 Refill [facility] [address] [place] [address] Chase Duggan DMD [address] [place] [address] Periodontal abscess Social History Tobacco Use Types [...]
--- OUTSIDE RECORDS SUMMARY | 2025-04-21 19:08 | XMS_ITS | Patient Health Record ---
Author Organization [facility] Address [address] [place] [address] Care Team Providers Care Dam Tender Name Role Phone Columba (RETIRED) Bala BOWIE Primary Care Provide narcisa Schuster Jr, Vick Unavailable [phone] Allergies No Known Allergies Results Component Value Reference Range Notes Prothrombin Time INR Reviewed date:07/11/2024 03:00:05 PM Interpretation: Performing Lab:[facility], [address] [place] [phone] Notes/Report: Prothrombin Time 11.7 10.9-12.4 [employer] [...] Blood Reviewed date:07/11/2024 03:00:01 PM Interpretation: Performing Lab:[facility], [address] [place] [phone] Notes/Report: Glucose, Whole Blood 110 60-115 mg/dL METER # : [id number] Pathology Reviewed date:07/16/2024 08:36:50 AM Interpretation: Performing Lab:[facility], [address] [place] [phone] Notes/Report: Reason For Referral No Information Medications [...] Problem Status W/U Status Risk Notes Problem 424137017 Colon cancer screening (Z12.11) Active confirmed Problem 813419171 [facility] (current) use of anticoagulants (Z79.01) Active confirmed Problem 269059630 Abnormal finding s in stool (R19.5) Active confirmed Problem 913639117143121 long term acute care registered nurse (current) use of oral hypoglycemic drugs (Z79.84) Active confirmed Problem 157881987 Personal history of colonic polyps (Z86.0100) Active confirmed Vital Signs Blood pressure diastolic 00 mm Hg 06/12/2024 Height 71 in 06/12/2024 Blood pressure systolic 00 mm Hg 06/12/2024 Weight 218 lbs 06/12/2024 BMI 30.40 kg/m2 06/12/2024 Encounters Encounter Location Date Provider Diagnosis [facility] [address] [place], [place] [id number] 07/11/2024 Vick Schuster Jr Colon polyps K63.5 ; Heme positive stool R19.5 and Personal history of colonic polyps Z86.0100 [facility] [address] [place] [address] 06/12/2024 Vick Schuster Jr Abnormal findings in stool R19.5 ; Personal history of colonic polyps Z86.0100 and long term acute care registered nurse (current) use of anticoagulants Z79.01 [facility] [address] [place] [address] 07/02/2024 Vick Schuster Jr [facility] [address] [place] [address] 07/16/2024 Vick Schuster Jr Assessments Encounter Date [...] of colonic polyps (ICD-10 - Z86.0100) 06/12/2024 [facility] (current) use of anticoagulants (ICD-10 - Z79.01) [...] Insured Coverage Start Date Coverage End Date [facility] [id number] [place], [place] [phone] [id number] SVETLANA NUR Self - patient is the [...]
--- OUTSIDE RECORDS SUMMARY | 2025-04-21 19:09 | XMS_ITS | Encounter Summary ---
Author Organization [facility] Address [address] [place] [address] Phone Care Team Providers Care Lining Repairer Name Role Phone Bala Waterman MD Primary Care Provider Encounter Details Date Type Department Care Team (Late st Contact Info) Description 08/12/2023 Procedure Pass [facility], Ct Scan - [facility] [address] [place] [address] Social History Tobacco Use Types Packs/Day Years [...] 08/12/2023 7:26 PM Sammy Sterling RN * [place] Suicide Severity Rating Scale (Screener/Recent Self-Report) Question [...] on filedocumented in this encounter Care Teams Lining Repairer Relationship Specialty Start Date End Date Bala Waterman MD [address] [place] [address] [place] [address] PCP - General Internal Medicine 07/04/17 documented as of this encounter Additional Source Comments The information contained in this document represents components of the legal health record. It is not the complete legal health record.[facility]
--- OUTSIDE RECORDS SUMMARY | 2025-04-21 19:09 | XMS_ITS | Encounter Summary ---
Author Organization [facility] Address [address] [place] [address] Phone Care Team Providers Care Healthcare Network Consultant Name Role Phone Bala Waterman MD Primary Care Provider Encounter Details Date Type Department Care Team (Late st Contact Info) Description 08/16/2023 Procedure Pass [facility], Ct Scan - [facility] [address] [place] [address] Social History Tobacco Use Types Packs/Day Years [...] on filedocumented in this encounter Care Teams Healthcare Network Consultant Relationship Specialty Start Date End Date Bala Waterman MD [address] [place] [address] [place] [address] PCP - General Internal Medicine 07/04/17 documented as of this encounter Additional Source Comments The information contained in this document represents components of the legal health record. It is not the complete legal health record.[facility]
--- OUTSIDE RECORDS SUMMARY | 2025-04-21 19:09 | XMS_ITS | Clinical Summary ---
Author Organization [facility] Address [address] [facility] [address] [place] [address] Phone Care Team Providers Care Prints And Drawings Curator Name Role Phone Bala Waterman MD Primary [...] EST) SODIUM 139 133 - 146 mmol/L [facility] POTASSIUM 4.0 3.3 - 5.1 mmol/L [facility] CHLORIDE 101 96 - 108 mmol/L [facility] CO2 26 21 - 35 mmol/L [facility] BUN 17 6 - 19 mg/dL [facility] CREATININE 0.80 0.5 - 1.5 mg/dL [facility] GLUCOSE 154(H) 70 - 99 mg/dL [facility] ALBUMIN 4.3 3.9 - 4.8 g/dL [facility] TOTAL PROTEIN 6.8 6.5 - 8.0 g/dL [facility] CALCIUM 9.3 8.4 - 10.3 mg/dL [facility] ALKALINE PHOSPHATASE 122(H) 39 - 117 U/L [facility] TOTAL BILIRUBIN 0.8 0.0 - 1.2 mg/dL [facility] AST 20 0 - 37 U/L [facility] ALT 27 0 - 40 U/L [facility] GLOBULIN 2.5 1 - 4.8 g/dL [facility] EGFR 95 >59 mL/min/1.7 3m2 [facility] Comment:Estimated glomerular filtration rate calculated using the CKD-EPI refit equation. ANION GAP 16 10 - 20 mmol/L [facility] Blood 08/14/2023 9:16 AM EST 08/14/2023 10:54 AM EST Anne Villagomez MD LAB BLOOD ORDERABLES Katie carson Result Performing Organization Address City/State/[facility] Co de Phone Number [facility] [address] [place] [address] from Last 3 Months or Most Recently Relevant to Health Maintenance Insurance MEDICARE PART A & B [facility] FULL BLUE [place] MED[place] P[place] BLUE REPLACEMENT MEDICARE PART A & B [facility] FULL [place] BLUE REPLAC[place] MEDICARE PART A & B [facility] HEALTH SAFETY NET FULL MEDICARE PART A & B [facility] HEALTH SAFETY NET FULL MEDICARE PART A & B [facility] Member Subscriber Plan / Payer (Ef fective 2023-Present) Name:Shawn Myrick Relation to Subscriber:Self Name:Shawn Myrick Payer ID:[id number] Group ID:Not on file Type:Medicaid Address: [facility] [address] [place] [address] [facility] FULL [facility] MEDICARE PPO BLUE REPLACEMENT MEDICARE PART A & B [facility] FULL MEDICARE PART A & B [facility] SAFETY NET FULL BLUE [place] P[place] BLUE REPLACEMENT MEDICARE PART A & B [facility] NET FULL BLUE [place] MED[place] PPO BLUE REPLACEMENT MEDICARE PART A & B [facility] HEALTH SAFETY NET FULL BLUE [place] MEDICARE PPO BLUE REPLACEMENT Advance Directives For more information, please contact: [phone] (9AM - 5PM 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 It is not the complete legal health record.[facility]
--- OUTSIDE RECORDS SUMMARY | 2025-04-21 19:09 | XMS_ITS | Encounter Summary ---
Author Organization [facility] Address [address] [place] [address] Phone Care Team Providers Care Beamer Helper Name Role Phone Bala Waterman MD Primary Care Provider Encounter Details Date Type Department Care Team (Late st Contact Info) Description 08/12/2023 Procedure Pass [facility], Ct Scan - [facility] [address] [place] [address] Social History Tobacco Use Types Packs/Day Years [...] 08/12/2023 7:26 PM Sammy Sterling RN * [place] Suicide Severity Rating Scale (Screener/Recent Self-Report) Question [...] on filedocumented in this encounter Care Teams Beamer Helper Relationship Specialty Start Date End Date Bala Waterman MD [address] [place] [address] [place] [address] PCP - General Internal Medicine 07/04/17 documented as of this encounter Additional Source Comments The information contained in this document represents components of the legal health record. It is not the complete legal health record.[facility]
== END 2025-04-21 16:29 | disposition home or self-care (01) ==
LOC: HO.XRAY 16:28
PROVIDERS: PCP Physician Assistant Medical; Visit Provider Physician Assistant Medical
DX: M25.511 Pain in right shoulder (principal); M25.551 Pain in right hip
CPT/HCPCS: 73030; 73502

== ENCOUNTER → 2025-04-21 16:34 | Outpatient (BNV) | payer MEDICARE, MEDICAID, SELFPAY | PROVIDERS: PCP Physician Assistant Medical; Visit Provider Radiology Diagnostic Radiology | DX: M16.11 Unilateral primary osteoarthritis, right hip (principal); M19.011 Primary osteoarthritis, right shoulder | CPT/HCPCS: 73030; 73502 ==

== ENCOUNTER 2025-06-04 10:55 | Outpatient (AMB) | payer MEDICARE, SELFPAY ==
--- OUTSIDE RECORDS SUMMARY | 2024-07-11 07:50 | XMS_ITS ---
Author Organization [facility] Address [address] [place] [address] Care Team Providers Care Food Production Associate Name Role Phone Columba (RETIRED) Bala BOWIE Primary Care Provide r Vick Echavarria Jr Unavailable [phone] REASON FOR VISIT positive cologuard Encounters Encounter Location Date Provider Diagnosis [facility] Out[place] [address] [place] [phone] 07/11/2024 Vick Schuster Jr Colon polyps K63.5 [...] Notes * LIUDMILA, SVETLANADOB:1955 (70 yo M)Acc No.[id number]:07/11/2024 Progress Notes Patient: SVETLANA MAGANA Provider: Joaquín Schuster MD :1955 A ge:69 Y S ex:Male Date:07/11/2024 Address:[address], [place], [place] Pcp:Bala Waterman (RETIRED )MD Subjective: * Chief [...] Date: 09/11/2023 Generated for Courtney perez/Timothy/Yolandasmitting on: 01:38 PM EDT
--- OUTSIDE RECORDS SUMMARY | 2024-10-07 09:30 | XMS_ITS ---
Author Organization Dalton Bucio III, MD Address [address] [place] [address] DR ALEMAN Lisa KEVIN BARRAZA [address] Care Team Providers Care Network Systems Analyst Name Role Phone Bala Waterman MD Primary [...] Date Provider Diagnosis Dalton Bucio III, MD [address] [place] [address] [place] [address] 10/07/2024 Dalton Bucio Preoperative clearan ce Z01.818 [...] Notes * Shawn NURDOB:1955 (69 yo M)Acc No.[id number]:10/07/2024 Patient: Shawn MAGANA Provider: Tami Bucio MD :1955 A ge:69 Y S ex:Male Date:10/07/2024 Address:[address] Pcp:Bala Waterman MD Subjective: * Chief Complaints: [...] tooth extracted by a dentist at the [facility] on [facility] tomorrow at 2 PM. I have access [...] is no record of this at the [facility]. The patient says he has been [...] 0 10/07/2024 Generated for Courtney perez/Timothy/eTkendallsmitting on: 01:38 PM EDT History and Physical Notes * HPI (History [...]
[2025-06-04 08:05] VITALS: BP 140/82; PULSE 67; TEMP 36.4; O2SAT 98; BMI 29.8
--- NOTE | 2025-06-04 08:05 | A.OFFPC_ITS ---
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 Instructions: Resume on 06/18/20. Tobacco use date assessed: 06/04/25 Fall risk assessment: No Falls in past year Last assessed Fall Risk: 06/04/25 Dental Screening Dental Screen Date: 06/04/25 Did you have a dental visit in the last 12 months?: No Did you have a dental problem in the last 6 months where you did not have access to dental care?: No HPI HPI Comments History of Present Illness Details The patient is a 70-year-old male with DM, HLD, HTN, AR and Carpal tunnel presenting with neuropathy, knee pain, and hand numbness. He is on Glipizide 10mg BID and Basalagar 25 units. He states his Sugar has been better. He did not go for his labs. The neuropathy is characterized by lightning-like pain in the legs and sensitivity to touch, with stiffness and numbness in the hands worsening over time. Right knee pain is linked to a tendon injury, affecting the patient's ability to maintain prolonged positions, with pain radiating to the hip and back. Patient is on Lisinopril 5mg for HTN. His BP today was 140/82. Sleep disturbances are reported, with the patient achieving only three to four hours of sleep due to discomfort. [facility] Medical History (Updated 06/08/25 @ 11:33 by TAVON Valdez) Allergic rhinitis Back pain Diabetes DVT (deep venous thrombosis) Elevated cholesterol Factor V deficiency Factor V Leiden History of fractured rib History of renal stone History of unsteady gait Hypertension Numbness of right hand On anticoagulant therapy Right hip pain Right knee pain Right shoulder pain Surgical History H/O cervical discectomy (~2019) History of testicular surgery History of total left hip replacement Hx of colonoscopy (~07/11/24) Hx of elbow surgery Family History (Updated 06/04/25 @ 11:11 by Codie Yi MA) Mother No problems noted. Father No problems noted. 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 1. Little interest or pleasure in doing things: not at all 2. Feeling down, depressed, or hopeless: several days 3. Trouble falling or staying asleep, or sleeping too much: nearly every day 4. Feeling tired or having little energy: several days (low energy) 5. Poor appetite or overeating: not at all 6. Feeling bad about yourself - or that you are a failure or have let yourself or your family down: not at all 7. Trouble concentrating on things, such as reading the newspaper or watching television: not at all 8. Moving or speaking so slowly that other people could have noticed. Or the opposite - being so fidgety or restless that you have been moving around a lot more than usual: not at all 9. Thoughts that you would be better off or of hurting yourself in some way: not at all Total score: 5 Depression Screening Interpretation: Negative Depression Screening Done: Yes Source: Developed by Drs. Dalton Chambers, Charmaine Galloway, Abrahan Keene and colleagues, with an educational alex from [employer]. Thrive Questionnaire Date Thrive assessed: 06/04/25 I am a: Patient Within the past 12 months, did the food you bought not last and you didn't have the money to get more?: Never true Within the past 12 months, did you worry whether your food would run out before you got money to buy more?: Never true Do you have trouble paying for medicines?: No Do you have trouble getting transportation to medical appointments?: No Do you have trouble paying your heating and electricity bill?: No Do you have trouble taking care of your child, family member or friend?: No Do you have trouble with day-to-day activities such as bathing, preparing meals, shopping, managing finances, etc.?: No Are you currently unemployed and looking for a job?: No Are you interested in more education?: No THRIVE Score: 0 AUDIT C Alcohol Use Questionnaire (AUDIT-C) 1. How often do you have a drink containing alcohol?: Monthly or less 2. How many drinks containing alcohol do you have on a typical day when you are drinking?: 1 or 2 3. How often do you have six or more drinks on one occasion?: Less than monthly Total Score: 2 BELTRAN-7 AMB Questionnaire BELTRAN-7 Date BELTRAN - 7 assessed: 06/04/25 Feeling nervous, anxious, or on edge: 0 = Not at all Not being able to stop or control worryin = Not at all Worrying too much about different things: 0 = Not at all Trouble relaxin = Not at all Being so restless that it is hard to sit still: 0 = Not at all Becoming easily annoyed or irritable: 0 = Not at all Feeling afraid as if something awful might happen: 0 = Not at all Total BELTRAN-7 score (0-4 normal; 5-9 mild; 10-14 moderate; 15-21 severe): 0 Source: Developed by Drs. Dalton Chambers, Charmaine Galloway, Abrahan Keene and colleagues, with an educational alex from [employer]. Review of Systems Narrative CONSTITUTIONAL Negative HEAD/NECK Negative EAR/NOSE/MOUTH/THROAT Reports nasal congestion, exacerbated by stress, causing disrupted sleep RESPIRATORY Negative CARDIOVASCULAR Negative GASTROINTESTINAL Negative MUSCULOSKELETAL Reports groin muscle strain affecting back and sleep, difficulty with mobility, and history of cervical spine surgery. NEUROLOGICAL Reports symptoms consistent with carpal tunnel syndrome, including numbness and weakness in hands. PSYCHIATRIC Negative - Musculoskeletal: Reports knee pain and hip pain radiating to the back. Denies other joint pain. - Neurological: Reports numbness in two fingers and lightning-like pain in legs. Denies headaches or dizziness. - Sleep: Reports difficulty sleeping, achieving only three to four hours per night. Physical exam (Primary Care) Vital Signs: Last Vital Signs Temp 97.5 F 06/04/25 08:05 Pulse 67 06/04/25 08:05 BP 140/82 H 06/04/25 08:05 Pulse Ox 98 06/04/25 08:05 Oxygen Delivery Method Room Air 06/04/25 08:05 BMI result Body Mass Index 29.8 GENERAL Well developed, Overweight, in no apparent distress HEENT Head-Normocephalic Eyes- PERRLA, EOMI, Conjuctiva clear, lids WNL Ears- Canals clear, TMs WNL Mouth/Throat-No lesions, no erythema, no exudate Neck- Supple, No lymphadenopathy, thyroid WNL RESPIRATORY Normal I:E, Clear to auscultation CARDIOVASCULAR Regular, rate and rhythm, No murmurs or rubs GASTROINTESTINAL Soft, nontender, normal bowel sounds, no masses MUSCULOSKELETAL Right hip-full ROM, nontender with palpation, Tender with motion, no crepitus Right knee- Full ROM, no swelling, tender at joint line NEUROLOGICAL Gait normal PSYCHIATRIC Oriented to person, place and time Mood and affect WNL Appearance WNL Speech WNL Thought processes WNL Tobacco/Smoking Status: Tobacco use Status Tobacco use date assessed 06/04/25 06/04/25 08:07 Patient Tobacco Use Status Current everyday Tobacco 06/04/25 08:07 e-Cigarette/Vaping Use Currently Using 06/04/25 08:07 PHQ-9: PHQ-9 Score PHQ-9: Total score 5 06/07/25 20:48 Depression Screening Interpretation: Negative Thrive Assessment: Date of Thrive Assessment Date Thrive assessed 06/04/25 06/04/25 08:22 Results Reviewed Results Reviewed: EXAMINATION: XR HIP, RIGHT CLINICAL INFORMATION: M25.551 - Pain in right hip COMPARISON: None available. TECHNIQUE: AP pelvis, AP and frog-leg views of the right hip. FINDINGS: Long coiled wire prior projects over the left hemipelvis extending into the left abdomen. Total hip arthroplasty on the left is incompletely imaged. There is moderate heterotopic ossification around the prosthetic joint. Right hip: There is severe superior lateral joint space narrowing with subchondral sclerosis, degenerative cystic change, and marginal osteophytes. There is moderate vascular calcification in the femoral artery. COMPARISON: June 18, 2024 TECHNIQUE: AP external rotation, Grashey, scapular Y, and axillary views of the right shoulder. FINDINGS: Mild degenerative changes are evident with marginal osteophyte involving humeral head and glenoid. There is chronic deformity and irregularity of the AC joint with elevation of distal clavicle. There is a bony exostosis projecting down from the mid clavicle in the region of the coronoid process likely related to remote injury There is no active dislocation. XR/XR shoulder RT min 2V IMPRESSION: Mild degenerative changes of the right shoulder joint. Chronic posttraumatic degeneration and AC joint separation. 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: secondary to endocrine disorders Type 2 diabetes mellitus with diabetic polyneuropathy, with long-term current u se of insulin E11.42; Z79.4 Diabetes mellitus complication status: with neurologic complications Diabetes mellitus detention insulin use: with detention use Diabetes mellitus type: type 2 Diabetes mellitus complication detail: with polyneuropathy Diabetic polyneuropathy associated with type 2 diabetes mellitus E11.42 Diabetes mellitus complication detail: diabetic polyneuropathy Diabetes mellitus type: type 2 Right knee pain M25.561 Time Spent (min) 35 Comment Time spent on chart review, medication reconciliation, H&P, patient education and orders. Assessment & Plan Assessment & Plan (1) Hypertension: Comment: BP today was 140/82 Code(s): I10 - Essential (primary) hypertension Category: Medical Qualifiers: Hypertension type: secondary to endocrine disorders Qualified Code(s): I15.2 - Hypertension secondary to endocrine disorders Plan: Lisinopril dosage will be increased to 10mg enhance blood pressure control, with a follow-up in three to four weeks. (2) Diabetes: Comment: IDDM Code(s): E11.9 - Type 2 diabetes mellitus without complications Category: Medical Qualifiers: Diabetes mellitus complication status: with neurologic complications Diabetes mellitus continuous churn buttermaker insulin use: with continuous churn buttermaker use Diabetes mellitus type: type 2 Diabetes mellitus complication detail: with polyneuropathy Qualified Code(s): E11.42 - Type 2 diabetes mellitus with diabetic polyneuropathy; Z79.4 - continuous churn buttermaker (current) use of insulin Plan: Improved medication adherence is advised to manage diabetes effectively, with follow-up planned to assess control. Patient to have labs done. Patient to follow up in 3-4 weeks or sooner if symptoms persist or worsen. (3) Diabetic neuropathy: Code(s): E11.40 - Type 2 diabetes mellitus with diabetic neuropathy, unspecified Category: Medical Qualifiers: Diabetes mellitus complication detail: diabetic polyneuropathy Diabetes mellitus type: type 2 Qualified Code(s): E11.42 - Type 2 diabetes mellitus with diabetic polyneuropathy Plan: Gabapentin will be initiated to manage neuropathic symptoms and improve sleep. Referral to orthopedics for further evaluation of hand and shoulder issues is planned. (4) Right knee pain: Code(s): M25.561 - Pain in right knee Category: Medical Plan: Patient has appointment 06/08 with PT. Plan I discussed with the patient the initiation of gabapentin for neuropathy, explaining its mechanism and potential side effects, including drowsiness. We also talked about increasing lisinopril to manage hypertension and the importance of medication adherence for diabetes control. A referral to orthopedics was recommended for further evaluation of hand and shoulder issues, and a follow-up appointment was scheduled to reassess the patient's condition. Orders: Referrals Orthopedics Referral M25.511 - Pain in right shoulder, R20.0 - Anesthesia of skin Medications: New lisinopril dosage adjustment 10 mg PO DAILY 90 tabs 1RF gabapentin 300 mg PO BEDTIME 90 caps 0RF for pain and numbness Patient Instructions: - Take gabapentin at bedtime to help with neuropathy and sleep. - Increase lisinopril dosage as prescribed to manage blood pressure. - Ensure regular medication adherence, especially for diabetes management. - Attend the scheduled physical therapy evaluation for knee pain. - Follow up with the orthopedist for hand and shoulder evaluation. - Schedule a follow-up appointment in three to four weeks and get blood work done before the visit.
--- OUTSIDE RECORDS SUMMARY | 2025-06-04 13:37 | XMS_ITS | Encounter Summary ---
Author Organization [facility] Address [address] [facility] [address] [place] [address] Phone Care Team Providers Care Side Laster Tack Name Role Phone Pcp, Unknown Primary Care Provider Bala Cleaning MD Primary Care Provider Encounter Details Date Type Department Care Team (Late st Contact Info) Description 05/26/2017 Ancillary Orders [facility], X-Ray - [address] [address] Paige Hinton, PASergeiC [address] [place] [address], [address] [place] [address] [email or web address] Kidney stone Social History Tobacco Use [...] kidney documented in this encounter Care Teams Side Laster Tack Relationship Specialty Start Date End Date Pcp, Unknown PCP - General 05/26/17 07/03/17 Bala Waterman MD [address] [place] [address] Dr Lynn, [place]EV[place] [address] PCP - General Internal Medicine 07/04/17 documented as of this encounter Additional Source Comments The information contained in this document represents components of the legal health record. It is not the complete legal health record.[facility]
--- OUTSIDE RECORDS SUMMARY | 2025-06-04 13:37 | XMS_ITS | Patient Health Record ---
Author Organization Dalton Bucio III, MD Address [address] [place] [address] [place] [address] Care Team Providers Care Motorcycle Assembler Name Role Phone Bala Waterman MD Primary Care Provider UnavailDr. Dalton Godfrey III Unavailable [phone] Allergies Allergen (clinical drug ingredient) Drug/Non Drug [...] Date Provider Diagnosis Dalton Bucio III, MD [address] [place] [address] [place] [phone] 10/07/2024 Dalton Bucio Preoperative clearan ce Z01.818 [...] Insured Coverage Start Date Coverage End Date [facility] [address] [place], [place] [id number] Elen Shawn Self - patient is the insured MEDICARE KIT [facility] [address] [place] [address] [phone] [id number] ElenShawn Self - patient is the insured MEDICA[place] [address] [place], [place] [phone] [id number] Shawn Myrick Self - patient is the insured Medical (General) History Medical History History ICD Code Benign prostatic hypertrophy Venous insufficiency Low back pain Diabetes mellitus Obesity Hyperlipidemia Stage I chronic renal disease Umbilical hernia Osteoarthritis in both knees History of kidney stone Sleep apnea History of protein C abnormality
--- OUTSIDE RECORDS SUMMARY | 2025-06-04 13:37 | XMS_ITS | Patient Health Record ---
Author Organization [facility] Address [address] [place] [address] Care Team Providers Care Supervisor Money Room Name Role Phone Columba (RETIRED) Bala BOWIE Primary Care Provide narcisa Schuster Jr, Vick Unavailable Allergies No Known Allergies Results Component Value Reference Range Notes Prothrombin Time INR Reviewed date:07/11/2024 03:00:05 PM Interpretation: Performing Lab:[facility], [address] [place] [phone] Notes/Report: Prothrombin Time 11.7 10.9-12.4 [employer] [...] Blood Reviewed date:07/11/2024 03:00:01 PM Interpretation: Performing Lab:[facility], [address] [place] [phone] Notes/Report: Glucose, Whole Blood 110 60-115 mg/dL METER # : [id number] Pathology Reviewed date:07/16/2024 08:36:50 AM Interpretation: Performing Lab:[facility], [address] [place] [phone] Notes/Report: Reason For Referral No Information Medications Medication SIG (Take, Route, Frequency, Duration) Notes Start Date End Date Status Lisinopril 5 MG TAKE 1 TABLET BY PA TH EVERY DAY Oral; Duration: 90 Active glipiZIDE 5 MG TAKE 2 TABLETS BY MO UTH TWICE DAILY Oral; Duration: 90 Active Atorvastatin Calcium 20 MG TAKE 1 TABLET BY MOUTH ONCE DAILY Oral; Duration: 90 Active Warfarin Sodium 5 MG TAKE 1 & 1/2 TO 2 T ABLETS BY MOUTH EVERY DAY Oral; Duration: 90 Active MiraLax (colon prep) 8.3 ounce ((238) grams mixed with Gatorade or Crystal Light orally begin at 5:00 p.m. the day before the procedure; Duration: 1 day 11/12/2019 Active Immunizations Vaccine Route [...] Problem Status W/U Status Risk Notes Problem Colon cancer screening (602873698) Colon cancer screening (Z12.11) Active confirmed Problem Long-term current use of anticoagulant (611848651) long term care social worker (current) use of anticoagulants (Z79.01) Active confirmed Problem Abnormal feces (009041289) Abnormal findings in stool (R19.5) Active confirmed Problem Long-term current use of drug therapy (220197544) [facility]PC (current) use of oral hypoglycemic drugs (Z79.84) Active confirmed Problem History of polyp of colon (situation) (204114528) Personal history of colonic polyps (Z86.0100) Active confirmed Vital Signs Blood pressure diastolic 00 mm Hg 06/12/2024 Height 71 in 06/12/2024 Blood pressure systolic 00 mm Hg 06/12/2024 Weight 218 lbs 06/12/2024 BMI 30.40 kg/m2 06/12/2024 Encounters Encounter Location Date Provider Diagnosis [facility] Outpatient [address] [place] [phone] 07/11/2024 Vick Schuster Jr Colon polyps K63.5 ; Heme positive stool R19.5 and Personal history of colonic polyps Z86.0100 [facility] [address] [place] [phone] 06/12/2024 Vick Schuster Jr Abnormal findings in stool R19.5 ; Personal history of colonic polyps Z86.0100 and FPC (current) use of anticoagulants Z79.01 [facility] [address] [place] [address] 07/02/2024 Vick Schuster Jr [facility] [address] [place] [phone] 07/16/2024 Vick Schuster Jr Assessments Encounter Date [...] of colonic polyps (ICD-10 - Z86.0100) 06/12/2024 [facility]PC (current) use of anticoagulants (ICD-10 - Z79.01) [...] Coverage Start Date Coverage End Date [employer] [address] [place], [place] [id number] SVETLANA NUR Self - patient is the [...]
--- OUTSIDE RECORDS SUMMARY | 2025-06-04 13:38 | XMS_ITS | Encounter Summary ---
Author Organization [facility] Address [address] [place] [address] Phone Care Team Providers Care Philosophy Faculty Name Role Phone Bala Waterman MD Primary Care Provider Encounter Details Date Type Department Care Team (Late st Contact Info) Description 08/12/2023 Procedure Pass [facility], Ct Scan - [facility] [address] [place] [address] Social History Tobacco Use Types Packs/Day Years [...] 08/12/2023 7:26 PM Sammy Sterling RN * [place] Suicide Severity Rating Scale (Screener/Recent Self-Report) Question [...] on filedocumented in this encounter Care Teams Philosophy Faculty Relationship Specialty Start Date End Date Bala Waterman MD [address] [place] [address] [place] [address] PCP - General Internal Medicine 07/04/17 documented as of this encounter Additional Source Comments The information contained in this document represents components of the legal health record. It is not the complete legal health record.[facility]
--- OUTSIDE RECORDS SUMMARY | 2025-06-04 13:38 | XMS_ITS | Encounter Summary ---
Author Organization [facility] Address [address] [place] [address] Phone Care Team Providers Care Audio Recording Engineer Name Role Phone Bala Waterman MD Primary Care Provider Encounter Details Date Type Department Care Team (Late st Contact Info) Description 08/12/2023 Procedure Pass [facility], Ct Scan - [facility] [address] [place] [address] Social History Tobacco Use Types Packs/Day Years [...] 08/12/2023 7:26 PM Sammy Sterling RN * [place] Suicide Severity Rating Scale (Screener/Recent Self-Report) Question [...] on filedocumented in this encounter Care Teams Audio Recording Engineer Relationship Specialty Start Date End Date Bala Waterman MD [address] [place] [address] [place] [address] PCP - General Internal Medicine 07/04/17 documented as of this encounter Additional Source Comments The information contained in this document represents components of the legal health record. It is not the complete legal health record.[facility]
--- OUTSIDE RECORDS SUMMARY | 2025-06-04 13:38 | XMS_ITS | Clinical Summary ---
Author Organization [employer] Address [address] [place] [address] [address] [place] [address] Care Team Providers Care Records Management Associate Name Role Phone Unavailable Primary Care [...] Date Diagnosed Date Colon cancer screening 09/12/2024 longterm (current) use of anticoagulants 2024 longterm (current) use of oral hypoglycemic elaine gs [...]
--- OUTSIDE RECORDS SUMMARY | 2025-06-04 13:38 | XMS_ITS | Clinical Summary ---
Author Organization [facility] Address [address] [facility] [address] [place] [id number] Phone Care Team Providers Care Camp Dining Room Attendant Name Role Phone Bala Waterman MD Primary [...] EST) SODIUM 139 133 - 146 mmol/L [facility] POTASSIUM 4.0 3.3 - 5.1 mmol/L [facility] CHLORIDE 101 96 - 108 mmol/L [facility] CO2 26 21 - 35 mmol/L [facility] BUN 17 6 - 19 mg/dL [facility] CREATININE 0.80 0.5 - 1.5 mg/dL [facility] GLUCOSE 154(H) 70 - 99 mg/dL [facility] ALBUMIN 4.3 3.9 - 4.8 g/dL [facility] TOTAL PROTEIN 6.8 6.5 - 8.0 g/dL [facility] CALCIUM 9.3 8.4 - 10.3 mg/dL [facility] ALKALINE PHOSPHATASE 122(H) 39 - 117 U/L [facility] TOTAL BILIRUBIN 0.8 0.0 - 1.2 mg/dL [facility] AST 20 0 - 37 U/L [facility] ALT 27 0 - 40 U/L [facility] GLOBULIN 2.5 1 - 4.8 g/dL [facility] EGFR 95 >59 mL/min/1.7 3m2 [facility] Comment:Estimated glomerular filtration rate calculated using the CKD-EPI refit equation. ANION GAP 16 10 - 20 mmol/L [facility] Blood 08/14/2023 9:16 AM EST 08/14/2023 10:54 AM EST Anne Villagomez MD LAB BLOOD ORDERABLES Katie carson Result Performing Organization Address City/State/[facility] Co de Phone Number [facility] [address] [place] [address] from Last 3 Months or Most Recently Relevant to Health Maintenance Insurance MEDICARE PART A & [facility] FULL BLUE [place] MEDIC[place] PPO BLUE REPLACEMENT MEDICARE PART A & [facility] FULL [place] RE[place] MEDICARE PART A & B [facility] S[facility] NET FULL MEDICARE PART A & B [facility] NET FULL MEDICARE PART A & B [facility] FULL [facility] MEDICARE PPO BLUE REPLACEMENT MEDICARE PART A & [facility] A & B [facility] SAF[facility] NET FULL [place] RE[place] MEDICARE PART A & B [facility] NET FULL [place]UE [place] BLUE REPLAC[place] MEDICARE PART A & B [facility] NET FULL BLUE [place] MEDICARE PPO BLUE REPLACEMENT Advance Directives For more information, please contact: [phone] (9AM - 5PM [facility], Sunday-Sunday) Documents on File Type Date Recorded Patient Continuous Drier Operator Expl anation Healthcare Proxy 08/13/2023 KEVIN HCP Seb r Copy Healthcare Agents on File Name Relationship Healthcare Agent Relationship Communication Izabela Myrick Mother .Primary Health Care Agent (Proxy form on file) Care Teams Camp Dining Room Attendant Relationship Specialty Start Date End Date Bala Waterman MD [address] [place] [address] [place] [address] PCP - General Internal Medicine 07/04/17 Additional Source Comments The information contained in this document represents components of the legal health record. It is not the complete legal health record.[facility]
--- OUTSIDE RECORDS SUMMARY | 2025-06-04 13:38 | XMS_ITS | Encounter Summary ---
Author Organization [employer] Address [address] [place] [address] [place] [address] Care Team Providers Care Machine Sizer Name Role Phone Unavailable Primary Care Provider Unavailabl e Encounter Details Date Type Department Care Team (Latest Contact Info) Description 09/20/[address] [facility] CONVERSIONS Dental, Provider, DDS Social History [...]
--- OUTSIDE RECORDS SUMMARY | 2025-06-04 13:38 | XMS_ITS | Encounter Summary ---
Author Organization [facility] Address [address] [facility] [address] [place] [address] Phone Care Team Providers Care Director Learning Name Role Phone Bala Waterman MD Primary Care Provider Encounter Details Date Type Department Care Team (Late st Contact Info) Description 08/16/2023 Procedure Pass [facility], Ct Scan - [facility] [address] [place] [address] Social History Tobacco Use Types Packs/Day Years [...] on filedocumented in this encounter Care Teams Director Learning Relationship Specialty Start Date End Date Bala Waterman MD [address] [place] [address] [place] [address] PCP - General Internal Medicine 07/04/17 documented as of this encounter Additional Source Comments The information contained in this document represents components of the legal health record. It is not the complete legal health record.[facility]
--- OUTSIDE RECORDS SUMMARY | 2025-06-04 13:38 | XMS_ITS | Encounter Summary ---
Author Organization [facility] [employer] Address [address] [place] [address] [address] [place] [address] Care Team Providers Care Nursing Program Coordinator Name Role Phone Unavailable Primary Care Provider Unavailabl e Reason for Visit * Reason Comments Med Refill Encounter Details Date Type Department Care Team ([facility] st Contact Info) Description 07/06/2024 Refill [facility] ADULT DENTAL [address] [place] [address] Chase Duggan DMD [address] [place] [address] Periodontal abscess Social History Tobacco Use Types [...]
--- OUTSIDE RECORDS SUMMARY | 2025-06-04 13:38 | XMS_ITS | Clinical Summary ---
Author Organization [facility] Address [address] [place] [address] Care Team Providers Care Pharmacy Resource Tech Name Role Phone Bala Waterman MD Primary Care Provider [phone] Social History Tobacco Use Types Packs/Day Years [...] age to complete this topic Care Teams Pharmacy Resource Tech Relationship Specialty Start Date End Date Bala Waterman MD [address] [place] [address] Dr [address] [place] [address] PCP - General Video Intern 03/31/19
--- OUTSIDE RECORDS SUMMARY | 2025-06-04 13:38 | XMS_ITS | Encounter Summary ---
Author Organization [facility] Address [address] [facility] [place] [address] Phone Care Team Providers Care Project Lead Name Role Phone Bala Waterman MD Primary Care Provider Encounter Details Date Type Department Care Team (Late st Contact Info) Description 05/09/2018 Ancillary Orders Virtual Department [address] [place] [address] Keely Pollock MD [address] [place] [address] Kidney stone Social History Tobacco Use Types [...] kidney documented in this encounter Care Teams Project Lead Relationship Specialty Start Date End Date Bala Waterman MD [address] [place] [address] PCP - General Internal Medicine 07/04/17 documented as of this encounter Additional Source Comments The information contained in this document represents components of the legal health record. It is not the complete legal health record.[facility]
== END 2025-06-04 11:42 | disposition home or self-care (01) ==
PROVIDERS: PCP Physician Assistant Medical; Visit Provider Physician Assistant Medical
DX: I15.2 Hypertension secondary to endocrine disorders (principal); E11.42 Type 2 diabetes mellitus with diabetic polyneuropathy; Z79.4 Long term (current) use of insulin; M25.561 Pain in right knee

== ENCOUNTER → 2025-06-04 10:55 | Outpatient (BNVA) | payer MEDICARE, SELFPAY | PROVIDERS: PCP Physician Assistant Medical; Visit Provider Physician Assistant Medical | DX: E11.42 Type 2 diabetes mellitus with diabetic polyneuropathy (principal); M25.561 Pain in right knee; I15.2 Hypertension secondary to endocrine disorders; Z79.4 Long term (current) use of insulin; Z79.899 Other long term (current) drug therapy | CPT/HCPCS: 96127; 99212 ==

== ENCOUNTER 2025-07-09 10:26 | Outpatient (AMB) | payer MEDICARE, SELFPAY ==
--- OUTSIDE RECORDS SUMMARY | 2024-07-11 06:50 | XMS_ITS ---
Author Organization [facility] Address [address] [place] [address] Care Team Providers Care Dressed Poultry Grader Name Role Phone Columba (RETIRED) Bala BOWIE Primary Care Provide r Vick Echavarria Jr Unavailable REASON FOR VISIT positive cologuard Encounters Encounter Location Date Provider Diagnosis [facility] [place] Out[place] [address] [place] [id number] 07/11/2024 Vick Schuster Jr Colon polyps K63.5 ; Heme positive stool R19.5 and Personal history of colonic polyps Z86.0100 Assessments Encounter Date Diagnosis (ICD Code) Assessment Notes Treatment Notes Treatment Clinical Notes Section Notes 07/11/2024 Colon polyps (ICD-10 - K63.5) 07/11/2024 Heme positive stool (ICD-10 - R19.5) 07/11/2024 Personal history of colonic polyps (ICD-10 - Z86.0100) Plan Of Treatment No Information Progress Notes * LIUDMILA, SVETLANADOB:1955 (70 yo M)Acc No.[id number]:07/11/2024 Progress Notes Patient: SVETLANA MAGANA Provider: Joaquín Schuster MD :1955 A ge:69 Y S ex:Male Date:07/11/2024 Address:[address], [place] [place] Pcp:Bala Waterman (RETIRED )MD Subjective: * Chief Complaints: * P ositive cologuard Assessment: * Assessment: 1. C olon polyps - K63.5 (Primary) 2 . H faisal positive stool - R19.5 ? 3 . P ersonal history of colonic polyps - Z86.0100 Plan: * Procedure Codes: 4 5385 LESION REMOVAL COLONOSCOPY Billing Information: * Procedure Codes: 73602 LESION REMOVAL COLONOSCOPY. * The named appointment provid er may or may not be the originator of this progress note, and it is not deemed complete until electronically signed by the appointment provider. Sign off status: Pending * Provider: Joaquín Schuster MD Date: 09/11/2023 Generated for Courtney perez/Timothy/Yolandasmitting on: 09/09/2024 12:49 PM EST
--- OUTSIDE RECORDS SUMMARY | 2024-10-07 08:30 | XMS_ITS ---
Author Organization Dalton Bucio III, MD Address [address] [place] [address] DR ALEMAN Lisa KEVIN BARRAZA [address] Care Team Providers Care Boots And Shoes Supervisor Name Role Phone Bala Waterman MD Primary Care Provider Dr. Dalton Eubanks III Unavailable Allergies Allergen (clinical drug ingredient) Drug/Non Drug Allergy documented on EMR Reaction Allergy Type Onset Date Status No Known Drug Allergy Unknown Drug Allergy Active REASON FOR VISIT Clearance for Dental Extraction on 10/08/[address] Jung Medications Medication SIG (Take, Route, Frequency, Duration) Notes Start Date End Date Status Lisinopril 5 MG Oral Acti ve glipiZIDE 5 MG Oral Activ e FreeStyle Lite Test - In Vitro Active Warfarin Sodium 5 MG 1 tablet Orally Once a day Active Basaglar KwikPen 100 UNIT/ML Subcutaneous Active Atorvastatin Calcium 20 MG Oral Active Social History Sex Assigned At : Social History Observation Description Sex Assigned At Male Vital Signs Temperature 98.3 degrees Fahrenheit 10/08/19 25 Blood pressure systolic 145 mm Hg 10/08/19 25 Blood pressure diastolic 80 mm Hg 025 Heart Rate 64 /min 10/07/2024 Height 5'11 in 10/07/2024 Weight 221 lbs 10/07/2024 BMI 30.82 kg/m2 10/07/2024 Encounters Encounter Location Date Provider Diagnosis Dalton Bucio III, MD [address] [place] [address] [place] [address] 10/07/2024 Dalton Bucio Preoperative clearan ce Z01.818 Assessments Encounter Date Diagnosis (ICD Code) Assessment Notes Treatment Notes Treatment Clinical Notes 10/07/2024 Preoperative clearance (ICD-10 - Z01.818) He is medically stable to undergo dental extraction with local anesthesia. The risk is small and the benefit is significant. His warfarin was discontinued 5 days ago and his INR is 1.0. He is not at risk of bleeding. 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 He will proceed to surgery tomorrow and the day after resume warfarin. I will review the records and attempt to make the correct determination as to whether he needs Lovenox to bridge the time before his INR becomes therapeutic. Plan Of Treatment Medication Medication Name Sig Start Date Stop Date Notes Lisinopril 5 MG Oral glipiZIDE 5 MG Oral FreeStyle Lite Test - In Vitro Warfarin Sodium 5 MG 1 tablet Orally Once a day Basaglar KwikPen 100 UNIT/ML Subcutaneous Atorvastatin Calcium 20 MG Oral Next Appt Details Follow Up: 1 Week, Reason: O ffice visit Progress Notes * Shawn NURDOB:1955 (69 yo M)Acc No.[id number]:10/07/2024 Patient: Shawn MAGANA Provider: Tami Bucio MD :1955 A ge:69 Y S ex:Male Date:10/07/2024 Address:[address] Pcp:Bala Waterman MD Subjective: * Chief Complaints: * C learance for Dental Extraction on 10/08/[address] Jung * HPI: C OVID-19 Screening: He is a pleasant 69 year old gentleman whose primary care physician was Dr. Bala Waterman. Dr. Waterman has become ill enclosed sees practice just recently. I have been asked to help with the situation. By doing a medical clearance on this patient who is scheduled to have a tooth extracted by a dentist at the [facility] on [facility] tomorrow at 2 PM. I have access to Dr. Waterman records. He is chronically anticoagulated with warfarin taking 5 mg a day. 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 However, review of the appropriate records indicates he has a protein C abnormality. There is no record of this at the [facility]. The patient says he has been seen at the [facility]. He has had his warfarin stopped before and denies ever being bridged with Lovenox. I have examined carefully and taken a history. He is hemodynamically stable today. He is cleared medically for a dental extraction tomorrow. I have instructed him to resume full dose of warfarin the day after surgery, which would be October.? I will review all of the records available to see if they have for drug such as Lovenox is indicated. He currently denies any dyspnea or chest pain and has been compliant with all of his medications. . Questions H ave you had any new onset fever, chills, cough, congestion, sore throat, shortness of breath, muscle aches? N o * ROS: G eneral/Constitutional: pain P ain and history, pain iin both knees, low back pain.?Chills d enies. F atigue a dmits. F ever d enies. E NT: Decreased hearing d enies. R espiratory: Cough d enies. C ardiovascular: Chest pain with exertion d enies. D yspnea on exertion?denies. S hortness of breath d enies. G astrointestinal: Constipation o ccasional. D ecreased appetite d enies. D iarrhea d enies. H eartburn d enies. N ausea d enies. R ectal bleeding d enies. V omiting d enies. H ematology: bruising d enies. p etechiae d enies. S wollen glands n one have been noted. G enitourinary: Frequent urination o nce a night. M usculoskeletal: Muscle aches d enies. P ainful joints K nees. S ciatica d enies. W eakness d enies. S kin: Itching d enies. R aleida d enies. S kin lesion(s)?denies. N eurologic: Difficulty speaking d enies. D izziness d enies.?Headache d enies. L ow back pain t hat is chronic. P sychiatric: Depressed mood d enies. * Medical History: * Surgical History: D enies Past Surgical History * Hospitalization/Major Diagno stic Procedure: D enies Past Hospitalization * Family History: N on-Contributory. * Medications: T akingWarfarin Sodium 5 MG Tablet 1 tablet Orally Once a day FreeStyle Lite Test - Strip In Vitro Basaglar KwikPen 100 UNIT/ML Solution Pen-injector Subcutaneous Atorvastatin Calcium 20 MG Tablet Oral glipiZIDE 5 MG Tablet Oral Lisinopril 5 MG Tablet Oral Medication List reviewed and reconciled with the patientTaking Warfarin Sodium 5 MG Tablet 1 tablet Orally Once a day Taking FreeStyle Lite Test - Strip In Vitro Taking Basaglar KwikPen 100 UNIT/ML Solution Pen-injector Subcutaneous Taking Atorvastatin Calcium 20 MG Tablet Oral Taking glipiZIDE 5 MG Tablet Oral Taking Lisinopril 5 MG Tablet Oral Medication List reviewed and reconciled with the patient * Allergies: N o Known Drug Allergyno[Allergies Verified] Objective: * Vitals: H t:5'11 , Wt:221, BMI:30.82, BP:145/80, HR:64, Temp:98.3, Ht-cm: 180.34, Wt-k.24. * Examination: G eneral Examination: GENERAL APPEARANCE: p leasant, well nourished, well developed, in no acute distress,Obese man. HEAD: a traumatic, normocephalic. EYES: e sara, perrla, anicteric, conjugate. EARS: n ormal. NOSE: s eptum intact. ORAL CAVITY: n ormal, unremarkable. NECK/THYROID: n o jugular venous distention, no carotid bruit, thyroid normal. LYMPH NODES: n o enlarged lymph nodes,spleen normal. SKIN: n o suspicious lesions, anicteric. HEART: n o clicks, gallops, murmurs, or rubs, regular rhythm, S1, S2 normal, no s3, or vascular bruits. LUNGS: c lear to auscultation . BREASTS: no masses palpable bilaterally. ABDOMEN: b owel sounds normal, no ascites, no organomegaly, no mass, centripital obesity, Umbilical hernia. RECTAL EXAM: n ot examined. MUSCULOSKELETAL: e xtremities unremarkable, no clubbing, cyanosis or edema, Mild, crepitus both knees to range of motion. PERIPHERAL PULSES: n ormal. NEUROLOGIC: a lert and oriented, cranial nerves 2-12 grossly intact, deep tendon reflexes 2+ symmetrical, motor strength normal upper and lower extremities, sensory exam intact. PSYCH: a lert, oriented. Assessment: * Assessment: 1. P reoperative clearance - Z01.818 (Primary) N otes :He is medically stable to undergo dental extraction with local anesthesia. The risk is small and the benefit is significant. His warfarin was discontinued 5 days ago and his INR is 1.0. He is not at risk of bleeding. 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 He will proceed to surgery tomorrow and the day after resume warfarin. I will review the records and attempt to make the correct determination as to whether he needs Lovenox to bridge the time before his INR becomes therapeutic. Plan: * Treatment: * Procedure Codes: * Preventive Medicine: Counseling: C are goal follow-up plan: Counseling for abnormal BMI given Y es Above Normal BMI Follow-up D ietary management education, guidance, and counseling, Dietary needs education, Exercise promotion: strength training, Exercise promotion: stretching, Feeding regime, Giving encouragement to exercise, Lifestyle education regarding diet, Nutrition / feeding management, Nutrition therapy, Prescribed activity/exercise education, Prescribed diet education, Prescribed dietary intake, Special diet education, Weight monitoring , Intervention, Order not done: Medical or Other reason not done * Follow Up: 1 Week (Reason: Office visit) * Images: * Sign off status: Completed true * Provider: Tami Bucio MD Date: 0 10/07/2024 Generated for Courtney perez/Timothy/eTkendallsmitting on: 09/09/2024 12:49 PM EST History and Physical Notes * HPI (History of Present Illness) Category Sub-Category Detail Notes COVID-19 Screening Questions Have you had any new onset fever, chills, cough, congestion, sore throat, shortness of breath, muscle aches?: No Examination Category Sub-Category Detail Notes General Examination GENERAL APPEARANCE: pleasant , well nourished, well developed, in no acute distress,Obese man HEAD: atraumatic, normocep halic EYES: eomi, perrla, anicte roseann, conjugate EARS: normal NOSE: septum intact NECK/THYROID: no jugular venous di stention, no carotid bruit, thyroid normal HEART: no clicks, gallops, murmurs, or rubs, regular rhythm, S1, S2 normal, no s3, or vascular bruits LUNGS: clear to auscultatio n ABDOMEN: bowel sounds normal, no ascites, no organomegaly, no mass, centripital obesity, Umbilical hernia NEUROLOGIC: alert and oriented, cranial nerves 2-12 grossly intact, deep tendon reflexes 2+ symmetrical, motor strength normal upper and lower extremities, sensory exam intact SKIN: no suspicious lesion s, anicteric PERIPHERAL PULSES: normal BREASTS: no masses palpable b ilaterally MUSCULOSKELETAL: extremities unremark able, no clubbing, cyanosis or edema, Mild, crepitus both knees to range of motion LYMPH NODES: no enlarged lymph no tod,spleen normal RECTAL EXAM: not examined PSYCH: alert, oriented ORAL CAVITY: normal, unremarkable
[2025-07-09 10:31] VITALS: BP 160/80; PULSE 60; TEMP 36.2; O2SAT 99; BMI 29.3
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
--- OUTSIDE RECORDS SUMMARY | 2025-07-09 12:49 | XMS_ITS | Clinical Summary ---
Author Organization [facility] Prior to 01/03/[address] [place] [address] Care Team Providers Care Energy Trader Name Role Phone Bala Waterman MD Primary Care Provider [phone] Social History Tobacco Use Types Packs/Day Years [...] age to complete this topic Care Teams Energy Trader Relationship Specialty Start Date End Date Bala Waterman MD [address] [place] [address] [address] [place] [address] PCP - General Account Contact Associate 03/31/19
--- OUTSIDE RECORDS SUMMARY | 2025-07-09 12:49 | XMS_ITS | Encounter Summary ---
Author Organization [employer] Address [address] [place] [address] [address] [address] Care Team Providers Care Chip Loft Worker Name Role Phone Unavailable Primary Care Provider Unavailabl e Encounter Details Date Type Department Care Team (Latest Contact Info) Description 09/20/2021 Abstract [facility] CONVERSIONS Dental, Provider, DDS Social History [...]
--- OUTSIDE RECORDS SUMMARY | 2025-07-09 12:49 | XMS_ITS | Patient Health Record ---
Author Organization Dalton Bucio III, MD Address [address] [place] [address] [place] [address] Care Team Providers Care Instant Print Operator Name Role Phone Bala Waterman MD Primary Care Provider UnavailDr. Dalton Godfrey III Unavailable Allergies Allergen (clinical drug ingredient) [...] Date Provider Diagnosis Dalton Bucio III, MD [address] [place] [address] [place] [address] 10/07/2024 Dalton Bucio Preoperative clearan ce Z01.818 [...] Insured Coverage Start Date Coverage End Date [facility] [address] [place], [place] [id number] Elen Shawn Self - patient is the insured MEDICARE [facility] [address] [place] [address] [phone] [id number] ElenShawn Self - patient is the insured MEDICAID [place] [facility] [address] [place], [place] [phone] [id number] Shawn Myrick Self - patient is the insured Medical (General) History Medical History History ICD Code Benign prostatic hypertrophy Venous insufficiency Low back pain Diabetes mellitus Obesity Hyperlipidemia Stage I chronic renal disease Umbilical hernia Osteoarthritis in both knees History of kidney stone Sleep apnea History of protein C abnormality
--- OUTSIDE RECORDS SUMMARY | 2025-07-09 12:49 | XMS_ITS | Clinical Summary ---
Author Organization [employer] Address [address] [place] [address] [address] [place] [address] Care Team Providers Care Guide Tour Name Role Phone Unavailable Primary Care Provider [...] Date Diagnosed Date Colon cancer screening 09/12/2024 shelter (current) use of anticoagulants 2024 shelter (current) use of oral hypoglycemic elaine gs [...]
--- OUTSIDE RECORDS SUMMARY | 2025-07-09 12:49 | XMS_ITS | Patient Health Record ---
Author Organization [facility] Address [address] [place] [address] Care Team Providers Care Advanced Practice Registered Nurse Name Role Phone Columba (RETIRED) Bala BOWIE Primary Care Provide narcisa Schuster Jr, Vick Unavailable [phone] Allergies No Known Allergies Results Component Value Reference Range Flag Notes Pathology Reviewed date:07/16/2024 08:36:50 AM Interpretation: Performing Lab:[facility], [address] [place] [id number] Notes/Report: Glucose, Whole Blood Reviewed date:07/11/2024 03:00:01 PM Interpretation: Performing Lab:[address] [address] Notes/Report: Glucose, Whole Blood 110 60-115 mg/dL N CA TER #: [id number] Prothrombin Time INR Reviewed date:07/11/2024 03:00:05 PM Interpretation: Performing Lab:[facility], [address] [place] [phone] Notes/Report: Prothrombin Time 11.7 10.9-12.4 SEC N INTERNATIONAL NORM RATIO 1.0 0.9-1.1 N INTERNATIONAL NORMALIZED RATIO (INR) REFERENCE RANGES Reference [...] mechanical prosthetic heart valves: 2.5 - 3.5 Reason For Referral No Information Medications Medication SIG (Take, Route, Frequency, Duration) Notes Start Date End Date Status Lisinopril 5 MG Tablet TAKE 1 TABLET BY MOUTH EVERY DAY Oral; Duration: 90 Active glipiZIDE 5 MG Tablet TAKE 2 TABLETS BY MOUTH TWICE DAILY Oral; Duration: 90 Active Atorvastatin Calcium 20 MG Tablet TAKE 1 TABLET BY MOUTH ONCE DAILY Oral; Duration: 90 Active Warfarin Sodium 5 MG Tablet TAKE 1 & 1/2 TO 2 TABLETS BY MOUTH EVERY DAY Oral; Duration: 90 [...] stop date) Never Smoker NA - NA Social History Drugs/Alcohol: Social Info Question Answer Notes Alcohol Screen Did you have a drink containing alcohol in the past year? No Points 0 Interpretation Negative Tobacco Use: Social Info Question Answer Notes Tobacco Use/Smoking Patient is a nonsmoker Additional Details Category Social Info Options Details Miscellaneous: Marital status: single Occupation: disabled Problems Problem Type SNOMED Code ICD Code Onset Dates Problem Status W/U Status Risk Notes Problem Colon cancer screening (916732013) Colon cancer screening (Z12.11) Active confirmed Problem Long-term current use of anticoagulant (853605060) senior living (current) use of anticoagulants (Z79.01) Active confirmed Problem Abnormal feces (763135256) Abnormal findings in stool (R19.5) Active confirmed Problem Long-term current use of drug therapy (017043752) senior living (current) use of oral hypoglycemic drugs (Z79.84) Active confirmed Problem History of polyp of colon (situation) (289160015) Personal history of colonic polyps (Z86.0100) Active confirmed Encounters Encounter Location Date Provider Diagnosis [facility] [address] [place], [place] [id number] 07/11/2024 Vick Schuster Jr Colon polyps K63.5 ; Heme positive stool R19.5 and Personal history of colonic polyps Z86.0100 [facility] [address] [facility] [address] [place] [address] 07/16/2024 Vick Schuster Jr Assessments Encounter Date Diagnosis (ICD Code) Assessment Notes Treatment Notes Treatment Clinical Notes Section Notes 07/11/2024 Colon polyps (ICD-10 - K63.5) 07/11/2024 Heme positive stool (ICD-10 - R19.5) 07/11/2024 Personal history of colonic polyps (ICD-10 - Z86.0100) Plan Of Treatment Future Test Test Name Order Date COLONOSCOPY 11/12/2019 COLONOSCOPY 06/12/2024 Insurance Providers Payer Name Payer Address Payer Phone Subscriber Number Group Number Insured Name Patient Relationship to Insured Coverage Start Date Coverage End Date [facility] [address] [place], [place] [id number] [phone] [id number] SVETLANA NUR Self - patient is the [...]
--- OUTSIDE RECORDS SUMMARY | 2025-07-09 12:49 | XMS_ITS | Encounter Summary ---
Author Organization [employer] Address [address] [place] [address] [address] [place] [address] Care Team Providers Care Event Host Name Role Phone Unavailable Primary Care Provider Unavailabl e Reason for Visit * Reason Comments Med Refill Encounter Details Date Type Department Care Team ([facility] st Contact Info) Description 07/06/2024 Refill [facility] [address] [place] [address] Chase Duggan DMD [address] [place] [address] Periodontal abscess Social History Tobacco Use Types [...]
== END 2025-07-09 11:37 | disposition home or self-care (01) ==
LOC: HO.HMCHD 10:27
PROVIDERS: PCP Physician Assistant Medical; Visit Provider Physician Assistant Medical
DX: F33.1 Major depressive disorder, recurrent, moderate (principal); I15.2 Hypertension secondary to endocrine disorders; E11.42 Type 2 diabetes mellitus with diabetic polyneuropathy; Z79.4 Long term (current) use of insulin; M19.90 Unspecified osteoarthritis, unspecified site; R09.81 Nasal congestion

== ENCOUNTER → 2025-07-09 12:21 | Outpatient (BNV) | payer MEDICARE, SELFPAY | PROVIDERS: PCP Physician Assistant Medical; Visit Provider Radiology Diagnostic Radiology | DX: M17.0 Bilateral primary osteoarthritis of knee (principal); I70.203 Unspecified atherosclerosis of native arteries of extremities, bilateral legs; M19.072 Primary osteoarthritis, left ankle and foot; M20.12 Hallux valgus (acquired), left foot; I73.9 Peripheral vascular disease, unspecified | CPT/HCPCS: 73560; 73630 ==

== ENCOUNTER 2025-07-23 10:58 | Outpatient (AMB) | payer MEDICARE, SELFPAY ==
--- NOTE | 2025-07-23 10:59 | A.OFFVIS_ITS ---
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 He was last seen in 2021 for chronic AC Joint separation. Patient reports that he took a fall in 2019 while in the shower, since then he has had pain in the right shoulder. He has had no previous treatments. He is also having numbness and tinging in the right pointer and middle fingers. Hx of Cervical Spine Surgery Hx of Left HARSHAD He complains of pain in the Right Hip, Bilateral kneee and lower back. 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 He was last seen in 2021 for chronic AC Joint separation. Patient reports that he took a fall in 2019 while in the shower, since then he has had pain in the right shoulder. He has had no previous treatments. He is also having numbness and tinging in the right pointer and middle fingers. Hx of Cervical Spine Surgery Hx of Left HARSHAD He complains of pain in the Right Hip, Bilateral kneee and lower back. HPI Comments Details: Interval History The patient is a 70-year-old male presenting with a follow-up for right shoulder deformity and numbness in the right hand. The patient reports that the right shoulder has appeared deformed since a fall in October during the COVID pandemic, which he was unable to have treated at the time. He describes the shoulder as having an appearance similar to an elbow sticking out, but denies any pain associated with it. The patient has not undergone any formal physical therapy for the shoulder but has been performing exercises he previously used for the opposite shoulder. The patient reports numbness and tingling in the right hand, which began with the fingers and sometimes affects the thumb, leading to periods where he cannot feel anything. He is uncertain whether these symptoms originate from the neck or the shoulder. The patient has a history of right hip arthritis, which has been causing significant discomfort, particularly when descending stairs or standing from a seated position. He mentions a previous hip replacement on the left side, which was successful, and expresses concern about undergoing another surgery due to a family history of complications with anesthesia. The patient is diabetic, with recent blood glucose levels reported as 109 and 102, but his hemoglobin A1c has increased to 8.4, indicating suboptimal control. He is currently on warfarin for Factor V Leiden, a condition discovered after a previous blood clot. Results - X-rays of the right shoulder show separation of the AC joint. [facility] Medical History (Updated 07/23/25 @ 11:42 by Justin Thorpe MD) MDD (major depressive disorder), recurrent episode, moderate Chronic nasal congestion Bilateral knee pain Left foot pain Right knee pain Numbness of right hand Allergic rhinitis Factor V Leiden Hypertension Right hip pain Right shoulder pain History of unsteady gait History of fractured rib Back pain Factor V deficiency Diabetes DVT (deep venous thrombosis) History of renal stone On anticoagulant therapy Elevated cholesterol Surgical History History of testicular surgery Hx of elbow surgery Hx of colonoscopy (~07/11/24) History of total left hip replacement H/O cervical discectomy (~2018) Family History Mother No problems noted. Father No problems noted. 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 - Musculoskeletal: Right shoulder deformity noted, consistent with AC joint separation. Full range of motion observed without pain. - Neurologic: Numbness and tingling reported in the right hand, no focal neurological deficits observed. Positive Trendelenburg gait with markedly positive impingement test and limited range of motion right hip Results Reviewed Results Reviewed: I personally reviewed relevant radiographs. Severe osteoarthritis right hip Status post left total hip arthroplasty. Assessment & Plan Assessment & Plan (1) Separation of right acromioclavicular joint: Code(s): S43.101A - Unspecified dislocation of right acromioclavicular joint, initial encounter Category: Medical (2) Arthritis of right hip: Code(s): M16.11 - Unilateral primary osteoarthritis, right hip Category: Medical Plan Plan 1. Right Shoulder Deformity With Suspected Ac Joint Separation The patient is advised that surgical intervention is not recommended at this time due to the absence of pain and good range of motion. Continue with home exercises to maintain shoulder function. 2. Numbness And Tingling In The Right Hand, Possibly Related To Cervical Spine Issues Referral to a specialist for further evaluation of the cervical spine is recommended to determine the cause of the numbness and tingling. 3. Right Hip Arthritis With Severe Symptoms Consideration for right hip replacement surgery is discussed, with emphasis on planning around the patient's personal schedule and ensuring optimal diabetes control prior to surgery. Patient is advised to continue walking and avoid activities that exacerbate hip pain. 4. Diabetes Mellitus With Suboptimal Control (Hba1c 8.4) The patient is encouraged to work with his primary care physician to improve glycemic control, aiming for an HbA1c below 7.5 before considering hip surgery. 5. Factor V Leiden With History Of Blood Clot Continue current warfarin therapy, with monitoring of INR levels to ensure therapeutic range is maintained. Discussion Notes The patient expressed concern about the appearance of his right shoulder, which he described as resembling an elbow sticking out, but was reassured that the deformity is not causing any functional impairment or pain. The clinician explained that the numbness and tingling in the right hand are likely related to cervical spine issues rather than the shoulder, and a referral to a specialist was recommended for further evaluation. The patient was informed that surgical intervention for the shoulder is not necessary at this time due to the absence of pain and good range of motion. Discussion about the right hip arthritis included the potential for hip replacement surgery, with the patient expressing concerns about anesthesia due to a family history of complications. The clinician emphasized the importance of optimizing diabetes control before considering surgery and discussed the need for careful planning around the patient's personal schedule. I discussed that I think he would benefit from hip arthroplasty if his hemoglobin A1c were lowered and we could get clearance from his primary care doctor. He is severely limited and walks with a limp and has pain with daily activities. I will have him speak with our nurse navigator and begin this process. Coding Level of Care Code Est Pt Level 4 (04965) Diagnoses Separation of right acromioclavicular joint S43.101A Arthritis of right hip M16.11
== END 2025-07-23 11:38 | disposition home or self-care (01) ==
LOC: HO.HOS 10:58
PROVIDERS: PCP Physician Assistant Medical; Visit Provider Orthopaedic Surgery
DX: S43.101A Unspecified dislocation of right acromioclavicular joint, initial encounter (principal); M16.11 Unilateral primary osteoarthritis, right hip
CPT/HCPCS: 99204

== ENCOUNTER → 2025-07-23 10:58 | Outpatient (BNVA) | payer MEDICARE, SELFPAY | PROVIDERS: PCP Physician Assistant Medical; Visit Provider Orthopaedic Surgery | DX: M25.511 Pain in right shoulder (principal); S43.101A Unspecified dislocation of right acromioclavicular joint, initial encounter; M16.11 Unilateral primary osteoarthritis, right hip | CPT/HCPCS: 99202 ==

== ENCOUNTER 2025-07-28 13:22 | Outpatient (RCR) | payer MEDICARE, SELFPAY ==
--- NOTE | 2025-06-25 16:49 | MHC.PT.EP ---
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 PMHx of Back pain, Diabetes, Hx of DVT, unsteady gait, HTN, H/O cervical discectomy (~2019), History of L THR who is referred to PT for eval and treat of R hip pain with MD notes that he has balance issue and to decrease his pain, improve his function and decrease his fall risk; his current condition is resulting in decreased tolerance for walking even short distances at times, as well as negotiating stairs, driving, Heavy HH chores, lifting objects of weight, as well as disturbed sleep secondary to chronic LBP and hip pain with 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 Pt is deemed an appropriate candidate to receive skilled PT services to address their physical impairments in order to improve their functional ability. Frequency and Duration: The patient will be seen 2 x/ wk x 5 wks. Short Term Goals: initiate home program. Improve baseline pain to < 5/10; initial 6-8/10. Pt will demonstrate full R knee extension; initial 15 deg flexion with painful end of distal hamstrings Fpc Goals: I with home program. Pt will be able to walk 2 blocks with managed Sx; initial: quite a bit of difficulty. Pt will improve R hip and strength by at least 1/2 MMT grade. Pt will be able to tolerate staggered standing unsupported > 24 seconds; initial: unable. Pt will be able to negotiate stairs reciprocally; initial: non reciprocal. Treatment Plan: Modalities to reduce pain, spasms and effusion. Manual therapy to restore motion and function. Therapeutic exercise to improve strength and flexibility. Neuromuscular re-education for posture and balance. Therapeutic activities to return to functional activities of daily living. Electronically signed by: Duane Meeks PT. Please sign and return to therapist. Thank you for your referral.
--- NOTE | 2025-07-28 14:47 | MHC.PT.DC ---
[facility] [place] [facility] [place] Office [place] [facility] [address] Rebeca Anderson [address] [phone] F: [phone] F: [phone] F: [phone] F: [phone] Physical Therapy Discharge Report Diagnosis: Pain in R hip; Date of Surgery: Date of Evaluation: 06/08/25 Date of Discharge: 07/28/25 Treatments to Date: 12 Cancellations to Date: No Shows to Date: Discharge Status: Improved Function Independent with HEP Recommend MD Follow-up Discharge Summary: Shawn has been an active participant in his therapy in the clinic with some evidence of home program compliance; he has improved his pain and function however persists with L leg and hip pain and decreased tolerance for walking increased duration, squatting, and negotiating stairs d/t continued limited knee and hip ROM he was found to demonstrate poor ability for R knee extension with signifciant pes anserine tenderness and pain which was addressed and kulkarni improved his knee extension to 6 degrees from 15. He persists with significantly limited R hip ROM and pain which refers to his R groin; he is I with a home program that he can manage, he has had a consult with orthopedics regarding his R hip with discussion of hip surgery. He had demonstrated early improved SX with use of 2WW though he stopped using it as his pain improved. Electronically signed by: Duane Meeks PT. Please sign and return to therapist. Thank you for your referral.
== END 2025-07-28 14:47 | disposition home or self-care (01) ==
LOC: HO.PT 13:22
PROVIDERS: PCP Physician Assistant Medical; Visit Provider Physician Assistant Medical
DX: M25.551 Pain in right hip (principal)
CPT/HCPCS: 97014; 97035; 97110; 97140; 97161

== ENCOUNTER 2025-08-04 10:29 | Outpatient (AMB) | payer MEDICARE, SELFPAY ==
--- OUTSIDE RECORDS SUMMARY | 2024-07-11 06:50 | XMS_ITS ---
Author Organization [facility] Address [address] [place] [address] Care Team Providers Care Marionette Performer Name Role Phone Columba (RETIRED) Bala BOWIE Primary Care Provide r Vick Echavarria Jr Unavailable REASON FOR VISIT positive cologuard Encounters Encounter Location Date Provider Diagnosis [facility] [place] [address] [place] [phone] 07/11/2024 Vick Schuster Jr Colon polyps K63.5 [...] Notes * LIUDMILA, SVETLANADOB:1955 (70 yo M)Acc No.[id number]:07/11/2024 Progress Notes Patient: SVETLANA MAGANA Provider: Joaquín Schuster MD :1955 A ge:69 Y S ex:Male Date:07/11/2024 Address:[address], [place] Pcp:Bala Waterman (RETIRED )MD Subjective: * Chief Complaints: * P ositive cologuard Assessment: * Assessment: 1. C olon polyps - K63.5 (Primary) 2 . H faisal positive stool - R19.5 ? 3 . P ersonal history of colonic polyps - Z86.0100 Plan: * Procedure Codes: 4 5385 LESION REMOVAL COLONOSCOPY Billing Information: * Procedure Codes: 53813 LESION REMOVAL COLONOSCOPY. * The named appointment provid er may or may not be the originator of this progress note, and it is not deemed complete until electronically signed by the appointment provider. Sign off status: Pending * Provider: Joaquín Schuster MD Date: 09/11/2023 Generated for Courtney perez/Timothy/Evelioitting on: 02:03 PM EST
--- OUTSIDE RECORDS SUMMARY | 2024-10-07 08:30 | XMS_ITS ---
Author Organization Dalton Bucio III, MD Address [address] [place] [address] DR ALEMAN Lisa KEVIN BARRAZA [address] Care Team Providers Care Delivery Rn Name Role Phone Bala Waterman MD Primary Care Provider Dr. Dalton Eubanks III Unavailable Allergies Allergen (clinical drug ingredient) Drug/Non Drug Allergy documented on EMR Reaction Allergy Type Onset Date Status No Known Drug Allergy Unknown Drug Allergy Active REASON FOR VISIT Clearance for Dental Extraction on 10/08/[address] uJng Medications Medication SIG (Take, Route, Frequency, Duration) [...] Date Provider Diagnosis Dalton Bucio III, MD [address] [place] [address] [place] [address] 10/07/2024 Dalton Bucio Preoperative clearan ce Z01.818 [...] Notes * Shawn NURDOB:1955 (69 yo M)Acc No.[id number]:10/07/2024 Patient: Shawn MAGANA Provider: Tami Bucio MD :1955 A ge:69 Y S ex:Male Date:10/07/2024 Address:[address] Pcp:Bala Waterman MD Subjective: * Chief Complaints: [...] tooth extracted by a dentist at the [facility] on [facility] tomorrow at 2 PM. I have [...] is no record of this at the [facility]. The patient says he has been seen at the [facility]. He has had his warfarin stopped [...] 0 10/07/2024 Generated for Courtney perez/Timothy/eTkendallsmitting on: 02:03 PM EST History and Physical Notes * [...]
[2025-08-04 10:33] VITALS: BP 156/72; PULSE 58; TEMP 36.4; O2SAT 97; BMI 30.3
--- NOTE | 2025-08-04 10:33 | MHC.PC.OV ---
Vital Signs 08/04/25 10:33 08/04/25 10:39 Height 5 ft 11 in Weight 217 lb BMI 30.3 BP 156/72 H 152/76 H Blood Pressure Location Rt brachial Lt brachial Position Sitting Sitting Pulse 58 Pulse Source Pulse Oximeter Temp 97.5 F Temp Source Temporal Artery Scan Pulse Oximetry (%) 97 Oxygen Delivery Method Room Air Intake Visit Reasons: 3/4 wk follow up medication White Spooler Required: No Accompanied by: Self / Same As Patient Allergies latex Adverse Reaction (Verified 08/04/25 10:34) Itching Medication List - Last Reconciled 08/12/25 by TAVON Valdez atorvastatin 20 mg PO DAILY 90 days escitalopram oxalate 5 mg PO DAILY fluticasone propionate 50 mcg/actuation (Flonase Allergy Relief) 2 sprays intranasal DAILY gabapentin 300 mg PO BEDTIME glipizide 10 mg (2 x 5 mg) PO BID insulin glargine (Lantus Solostar U-100 Insulin) 25 units (0.25 mL) subcut BID levocetirizine 5 mg PO DAILY lisinopril 20 mg PO DAILY warfarin 5 mg PO DAILY Held on 06/16/20. Instructions: Resume on 06/18/20. Tobacco use date assessed: 08/04/25 Fall risk assessment: No Falls in past year Last assessed Fall Risk: 08/04/25 Dental Screening Dental Screen Date: 08/04/25 Did you have a dental visit in the last 12 months?: No Did you have a dental problem in the last 6 months where you did not have access to dental care?: No HPI HPI Comments History of Present Illness Details History of Present Illness The patient is a 70 year old male with DM, HLD, HTN, AR and Carpal tunnel presenting for management of multiple chronic conditions. He reports that his antidepressant medication is working well, and he feels less distressed. He acknowledges the need for counseling to work through underlying issues. He had a recent illness described as a bug over the holidays but is feeling better. The patient has a history of significant osteoarthritis. He reports pain in his hip, which is worse after sitting for periods of 30-60 minutes, and notes difficulty standing up from a seated position. Prolonged standing is also uncomfortable, and his sleep is frequently interrupted due to pain. After years of consideration, he is now resigned to having a hip replacement surgery. X-rays have shown arthritis in his left knee and left foot, the latter of which was previously fractured. He also has a screwed up shoulder since having COVID and recently woke up with severe burning, numb pain in that arm. For diabetes, the patient is on Basaglar, which his insurance is planning to change. He self-administers 25 units once daily at night if his blood sugar reading is over 140, but he does not check his levels in the morning. His A1c was recently 8.0. He was taking gabapentin but reports it was not effective for his pain and caused him to be ravenous, especially at night, leading to a seven-pound weight gain in three weeks. The patient's blood pressure remains elevated while on lisinopril 10 mg. He states he tries to avoid using salt. An x-ray of his foot and knee also incidentally suggested possible vascular issues. For nasal congestion, he uses levocetirizine and Flonase, which helps symptoms, but he still experiences dry mouth and awakens at night. Medical History: - Type 2 diabetes mellitus - Hypertension - Osteoarthritis - Depression - Allergic rhinitis - History of left foot fracture - History of COVID-19 Medications: - Unspecified antidepressant ( happy pills ) for mood - Levocetirizine for congestion - Basaglar insulin, 25 units once daily as needed for blood sugar >140 for diabetes - Flonase for congestion - Gabapentin for pain (to be discontinued) - Lisinopril 10 mg for blood pressure Family History: - Denies family history of hip replacement. Health Maintenance - Discussed referral for counseling. - Blood work ordered to monitor blood sugar. - Discussed dietary modifications for diabetes, including reducing sugar and carbohydrate intake. - Discussed lifestyle modifications for hypertension, including increased exercise and watching salt intake. Social History - Diet: Patient tries to avoid salt but acknowledges it is in many foods. - Functional Status: The patient has difficulty with prolonged sitting and standing due to hip pain. - Exercise: Discussed the need for more exercise to help control blood pressure and the balance of activity for his hip pain. - Nutritional Intake: Patient reports being ravenous at night while on gabapentin, eating foods like peanut butter and jelly sandwiches or ham. - Weight Management: Patient reports gaining 7 pounds in approximately 3 weeks, which he attributes to gabapentin. Results - Labs: Recent A1c was 8.0. - Imaging: X-rays of the left knee and foot show arthritis and suggest possible vascular issues. Patient was informed and verbally consented to the use of an ambient scribe for clinic note documentation during this visit. [facility] Medical History (Updated 08/12/25 @ 13:21 by TAVON Valdez) Allergic rhinitis Back pain Bilateral knee pain Chronic nasal congestion Diabetes DVT (deep venous thrombosis) Elevated cholesterol Factor V deficiency Factor V Leiden History of fractured rib History of renal stone History of unsteady gait Hypertension Left foot pain MDD (major depressive disorder), recurrent episode, moderate Numbness of right hand On anticoagulant therapy Osteoarthritis Right hip pain Right knee pain Right shoulder pain Surgical History H/O cervical discectomy (~2018) History of testicular surgery History of total left hip replacement Hx of colonoscopy (~07/11/24) Hx of elbow surgery Family History Mother No problems noted. Father No problems noted. 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 Dalton Chambers, Charmaine Galloway, Abrahan Keene and colleagues, with an educational alex from [employer]. Review of Systems Narrative Review of Systems - General: Reports recent weight gain of 7 pounds. - HEENT: Reports ongoing nasal congestion, managed with medication. - Mouth: Reports waking with a dry mouth. - Musculoskeletal: Reports chronic hip pain, worsened by sitting, which makes standing difficult. - Neurological: Reports a recent episode of severe burning numbness in his arm that woke him from sleep. - Psychiatric: Reports feeling less distressed on his current medication. - Endocrine: Reports increased appetite, particularly at night. Physical exam (Primary Care) Vital Signs: Last Vital Signs Temp 97.5 F 08/04/25 10:33 Pulse 58 08/04/25 10:33 BP 152/76 H 08/04/25 10:39 Pulse Ox 97 08/04/25 10:33 Oxygen Delivery Method Room Air 08/04/25 10:33 BMI result Body Mass Index 30.3 GENERAL Well developed, Overweight, in no apparent distress HEENT Head-Normocephalic Neck- Supple, No lymphadenopathy, thyroid WNL RESPIRATORY Normal I:E, Clear to auscultation CARDIOVASCULAR Regular, rate and rhythm, No murmurs or rubs MUSCULOSKELETAL Right hip-full ROM, nontender with palpation, Tender with motion, no crepitus Right knee- Full ROM, no swelling, tender at joint line NEUROLOGICAL Gait normal PSYCHIATRIC Oriented to person, place and time Mood and affect- depressed Appearance WNL Speech WNL Thought processes WNL Tobacco/Smoking Status: Tobacco/Smoking Status: Tobacco use Status Tobacco use date assessed 08/04/25 08/04/25 10:44 Patient Tobacco Use Status Current everyday Tobacco ( 08/04/25 10:44 only smoke marijuana due to stress and anxiety) e-Cigarette/Vaping Use Currently Using (only smoke 08/04/25 10:44 marijuana due to stress and anxiety) Thrive Assessment: Date of Thrive Assessment Date Thrive assessed 04/13/25 08/04/25 10:44 Coding Level of Care Code Established Pt Est Pt Level 4 (56936) Established Pt Add On Problem Visit Only Patient Type Established Diagnoses MDD (major depressive disorder), recurrent episode, moderate F33.1 Hypertension due to endocrine disorder I15.2 Hypertension type: secondary to endocrine disorders Type 2 diabetes mellitus with diabetic polyneuropathy, with long-term current use of insulin E11.42; Z79.4 Diabetes mellitus type: type 2 Diabetes mellitus terminal operations supervisor insulin use: with group home use Diabetes mellitus complication status: with neurologic complications Diabetes mellitus complication detail: with polyneuropathy Arthritis of right hip M16.11 Peripheral vascular disease I73.9 Allergic rhinitis J30.9 Time Spent (min) 35 Comment Time spent on chart review, H&P, Patient education and orders. Assessment & Plan Assessment & Plan (1) MDD (major depressive disorder), recurrent episode, moderate: Code(s): F33.1 - Major depressive disorder, recurrent, moderate Category: Medical Plan: He has been taking Escitalopram. He feels he is doing better. He is still waiting for Psych referral. Patient to follow up in 8 weeks or sooner if symptoms persist or worsen. (2) Hypertension: Comment: BP today was 156/72 and 152/72 Code(s): I10 - Essential (primary) hypertension Category: Medical Qualifiers: Hypertension type: secondary to endocrine disorders Qualified Code(s): I15.2 - Hypertension secondary to endocrine disorders Plan: Will increase Lisinopril to 20mg. Patient to follow up in 8w eeks or sooner if needed (3) Diabetes: Comment: A1C was 8.4% Code(s): E11.9 - Type 2 diabetes mellitus without complications Category: Medical Qualifiers: Diabetes mellitus type: type 2 Diabetes mellitus terminal operations supervisor insulin use: with group home use Diabetes mellitus complication status: with neurologic complications Diabetes mellitus complication detail: with polyneuropathy Qualified Code(s): E11.42 - Type 2 diabetes mellitus with diabetic polyneuropathy; Z79.4 - FPC (current) use of insulin Plan: Patient feels his sugar has been better. He would like to recheck labs. Patient will continue current medications. Will monitor. Patient will follow up in 8 weeks (4) Arthritis of right hip: Code(s): M16.11 - Unilateral primary osteoarthritis, right hip Category: Medical Plan: Patient will follow up with Orthopedics. (5) Peripheral vascular disease: Code(s): I73.9 - Peripheral vascular disease, unspecified Plan: Will refer to Vascular (6) Allergic rhinitis: Code(s): J30.9 - Allergic rhinitis, unspecified Category: Medical Plan: Doing better on current medcations. Patient will continue current medications. Will monitor. Patient will follow up in 6 months Plan Plan Patient was informed and verbally consented to the use of an ambient scribe for clinic note documentation during this visit. 1. Hypertension The patient's blood pressure remains elevated. Lisinopril will be increased from 10 mg to 20 mg daily. The patient was counseled on non-pharmacological methods to lower blood pressure, including increased exercise and limiting salt intake. It was explained that hypertension is a chronic condition that is controlled, not cured. 2. Type 2 Diabetes Mellitus The patient's last A1c was elevated at 8.0, indicating poor glycemic control. Blood work will be drawn today to check current sugar levels. The patient was counseled on diet, specifically to decrease sugar and carbohydrate intake, and to ensure regular use of his insulin. A prescription for insulin will be sent, and he was advised to finish his current Basaglar pens before starting the new insulin covered by his insurance. 3. Osteoarthritis Of Hip The patient reports debilitating hip pain that interferes with daily activities and sleep and has resigned himself to undergoing a hip replacement. Will follow up with Dr. Thorpe's office regarding the surgical plan. The patient was informed that the orthopedic office typically verifies insurance coverage before scheduling surgery. 4. Suspected Peripheral Vascular Disease Incidental x-ray findings suggested a possible vascular etiology for some of his symptoms. A referral will be placed for the patient to see a vascular specialist for further assessment and testing. 5. Chronic Pain And Adverse Effect Of Therapeutic Drug The patient reports gabapentin is not effective for his pain and is causing increased appetite and a 7-pound weight gain. Plan is to discontinue gabapentin. 6. Depression The patient feels his antidepressant is working well but agrees with the need for counseling. A referral for counseling was previously placed, and he will follow up. 7. Allergic Rhinitis The patient's symptoms are partially managed with levocetirizine and Flonase. It was explained that current therapy is for symptom control as elimination of the cause is not possible. The patient will continue the current regimen. Discussion Notes I discussed with the patient that his blood pressure remains elevated, so we will increase his lisinopril to 20 mg daily. We reviewed the importance of exercise and dietary salt reduction for hypertension management. We addressed his diabetes management, noting his A1c of 8.0 indicates a need for improved control. I advised him to reduce sugar and carbohydrate intake and to be more regular with his insulin. I explained that he should finish his current Basaglar insulin before switching to the new medication his insurance will cover. I recommended discontinuing gabapentin because he finds it ineffective for his pain and it is causing significant side effects, including increased appetite and weight gain. Given the x-ray findings suggestive of vascular issues, I am placing a referral to a vascular specialist for further evaluation. The patient is now agreeable to proceeding with a hip replacement, and I will follow up with Dr. Thorpe's office regarding the referral. I confirmed a referral for counseling has been placed, which he will pursue. We will obtain blood work today, and I have scheduled a follow-up appointment in approximately 8 weeks. Patient Instructions - Stop taking the gabapentin medication. - Increase your lisinopril (blood pressure medicine) to 20 mg once a day. - A new prescription for your blood pressure medicine and a refill for your insulin will be sent to your pharmacy. - Get more exercise and watch the amount of salt in your diet to help lower your blood pressure. - Eat fewer sugars and carbohydrates to help with your diabetes. - Go to the lab here in the clinic today for blood tests to check your sugar. - You will be referred to a vascular specialist (a doctor for blood vessels); please make an appointment with them. - Call the number on the referral letter you received in the mail to set up an appointment. - Schedule a follow-up appointment to see me in about two months. Orders: Orders Glucose Random 08/04/25 E11.42 - Type 2 diabetes mellitus with diabetic polyneuropathy, Z79.4 - FPC (current) use of insulin Hemoglobin A1c 08/04/25 E11.42 - Type 2 diabetes mellitus with diabetic polyneuropathy, Z79.4 - assistant terminal manager (current) use of insulin Medications: New lisinopril DOSAGE ADJUSTMENT 20 mg PO DAILY 90 tabs 1RF FOR BLOOD PRESSURE insulin glargine (Lantus Solostar U-100 Insulin) 25 units (0.25 mL) subcut BID 15 mL 6RF Discontinued lisinopril dosage adjustment Discontinued Reason: Doctor's Order 10 mg PO DAILY 90 tabs 1RF
[2025-08-04 10:39] VITALS: BP 152/76
--- OUTSIDE RECORDS SUMMARY | 2025-08-04 14:03 | XMS_ITS | Clinical Summary ---
Author Organization [employer] Address [address] [place] [address] [address] [place] [address] Care Team Providers Care Rod Piler Name Role Phone Unavailable Primary Care Provider [...] Date Diagnosed Date Colon cancer screening 09/12/2024 halfway (current) use of anticoagulants 2024 electrode turner and finisher (current) use of oral hypoglycemic elaine gs [...]
--- OUTSIDE RECORDS SUMMARY | 2025-08-04 14:03 | XMS_ITS | Patient Health Record ---
Author Organization Dalton Bucio III, MD Address [address] [place] [address] [place] [address] Care Team Providers Care Global Cmo Name Role Phone Bala Waterman MD Primary [...] Date Provider Diagnosis Dalton Bucio III, MD [address] [place] [address] [place] [phone] 10/07/2024 Dalton Bucio Preoperative clearan ce Z01.818 [...] Insured Coverage Start Date Coverage End Date [facility] [address] [place], [place] [id number] Elen Shawn Self - patient is the insured MEDICARE [facility] [address] [place] [address] [phone] [id number] ElenShawn Self - patient is the insured MEDICAID [place] [facility] [address] [place], [place] [phone] [id number] Shawn Myrick Self - patient is the insured Medical (General) History Medical History History ICD Code Benign prostatic hypertrophy Venous insufficiency Low back pain Diabetes mellitus Obesity Hyperlipidemia Stage I chronic renal disease Umbilical hernia Osteoarthritis in both knees History of kidney stone Sleep apnea History of protein C abnormality
--- OUTSIDE RECORDS SUMMARY | 2025-08-04 14:03 | XMS_ITS | Encounter Summary ---
Author Organization [employer] Address [address] [place] [address] [address], [place] [address] Care Team Providers Care Stratigraphy Teacher Name Role Phone Unavailable Primary Care Provider Unavailabl e Encounter Details Date Type Department Care Team (Latest Contact Info) Description 09/20/2021 Abstract [facility] CONVERSIONS Dental, Provider, DDS Social [...]
--- OUTSIDE RECORDS SUMMARY | 2025-08-04 14:03 | XMS_ITS | Clinical Summary ---
Author Organization [facility] Prior to 01/03/[address] [place] [address] Care Team Providers Care Mechanical Test Technician Name Role Phone Bala Waterman MD Primary Care Provider [phone] Social History Tobacco Use Types Packs/Day Years [...] age to complete this topic Care Teams Mechanical Test Technician Relationship Specialty Start Date End Date Bala Waterman MD [address] [place] [address] [address] [place] [address] PCP - General Human Service Specialist 03/31/19
--- OUTSIDE RECORDS SUMMARY | 2025-08-04 14:03 | XMS_ITS | Encounter Summary ---
Author Organization [employer] Address [address] [place] [address] [address] [place] [address] Care Team Providers Care Blender Machine Operator Name Role Phone Unavailable Primary Care Provider Unavailabl e Reason for Visit * Reason Comments Med Refill Encounter Details Date Type Department Care Team ([facility] st Contact Info) Description 07/06/2024 Refill [facility] ADULT DENTAL [address] [place] [address] Chase Duggan DMD [address] [place] [address] Periodontal abscess Social History Tobacco Use Types [...]
--- OUTSIDE RECORDS SUMMARY | 2025-08-04 14:03 | XMS_ITS | Clinical Summary ---
Author Organization [facility] Address [address] [facility] [address] [place] [phone] Phone Care Team Providers Care Manager Sales Support Name Role Phone Bala Waterman MD Primary [...] Date/Time Associated Diagnosis Comments COMPREHENSIVE METABOLIC PANEL (CMP) Routine 08/14/2023 9:16 AM EST Factor V Leiden from Last 3 Months or Most Recently Relevant to Health Maintenance Results * (ABNORMAL) Comprehensive metabolic panel (08/14/2023 9:16 AM EST) SODIUM 139 133 - 146 mmol/L [facility] POTASSIUM 4.0 3.3 - 5.1 mmol/L [facility] CHLORIDE 101 96 - 108 mmol/L [facility] CO2 26 21 - 35 mmol/L [facility] BUN 17 6 - 19 mg/dL [facility] CREATININE 0.80 0.5 - 1.5 mg/dL [facility] GLUCOSE 154(H) 70 - 99 mg/dL [facility] ALBUMIN 4.3 3.9 - 4.8 g/dL [facility] TOTAL PROTEIN 6.8 6.5 - 8.0 g/dL [facility] CALCIUM 9.3 8.4 - 10.3 mg/dL [facility] ALKALINE PHOSPHATASE 122(H) 39 - 117 U/L [facility] TOTAL BILIRUBIN 0.8 0.0 - 1.2 mg/dL [facility] AST 20 0 - 37 U/L [facility] ALT 27 0 - 40 U/L [facility] GLOBULIN 2.5 1 - 4.8 g/dL [facility] EGFR 95 >59 mL/min/1.7 3m2 [facility] Comment:Estimated glomerular filtration rate calculated using the CKD-EPI refit equation. ANION GAP 16 10 - 20 mmol/L [facility] Blood 08/14/2023 9:16 AM EST 08/14/2023 10:54 AM EST Anne Villagomez MD LAB BLOOD BKR ORDERABLES Final Result [facility] [address] [place] [address] from Last 3 Months or Most Recently Relevant to Health Maintenance Insurance MEDICARE PART A & B [facility] FULL BLUE [place] BLUE REPLACEMENT MEDICARE PART A & B [facility] NET FULL [place]UE [place] BL[place] RE[place] MEDICARE PART A & B [facility] NET FULL MEDICARE PART A & B [facility] NET FULL MEDICARE PART A & B [facility] NET FULL [place] BL[place] RE[place] MEDICARE PART A & B [facility] FULL [facility] PART A & [facility] FULL [place]UE [place] RE[place] MEDICARE PART A & B [facility] NET FULL [place]UE [place]UE REPLAC[place] MEDICARE PART A & B [facility] NET FULL BLUE [place] MED[place] PPO BLUE REPLACEMENT Advance Directives For more information, please contact: [phone] (9AM - 5PM Radha/[facility], Sunday-Sunday) Documents on File Type Date Recorded Patient Hydrographical Technical Officer Expl anation Healthcare Proxy 08/13/2023 KEVIN HCP Seb r Copy Healthcare Agents on File Name Relationship Healthcare Agent Relationship Communication Izabela Myrick Mother .Primary Health Care Agent (Proxy form on file) Care Teams Manager Sales Support Relationship Specialty Start Date End Date Bala Waterman MD [address] [place] [address] [place] [id number] PCP - General Internal Medicine 07/04/17 Additional Source Comments The information contained in this document represents components of the legal health record. It is not the complete legal health record.[facility]
--- OUTSIDE RECORDS SUMMARY | 2025-08-04 14:03 | XMS_ITS | Patient Health Record ---
Author Organization [facility] Address [address] [place] [address] Care Team Providers Care Public Information Relations Manager Name Role Phone Columba (RETIRED) Bala BOWIE Primary Care Provide Vick Amador Jr Unavailable Allergies No Known Allergies Reason For Referral No Information Medications Medication [...] Status Risk Notes Problem Colon cancer screening (935071070) Colon cancer screening (Z12.11) Active confirmed Problem Long-term current use of anticoagulant (389478074) terminal makeup operator (current) use of anticoagulants (Z79.01) Active confirmed Problem Abnormal feces (569432070) Abnormal findings in stool (R19.5) Active confirmed Problem Long-term current use of drug therapy (812138136) terminal makeup operator (current) use of oral hypoglycemic drugs (Z79.84) Active confirmed Problem History of polyp of colon (situation) (066246945) Personal history of colonic polyps (Z86.0100) Active confirmed Plan Of Treatment Future Test Test Name Order Date COLONOSCOPY 11/12/2019 COLONOSCOPY 06/12/2024 Insurance Providers Payer Name Payer Address Payer Phone Subscriber Number Group Number Insured Name Patient Relationship to Insured Coverage Start Date Coverage End Date [facility] [id number] [place], [place] [id number] SVETLANA NUR Self - patient is the [...]
--- OUTSIDE RECORDS SUMMARY | 2025-08-04 14:03 | XMS_ITS | Encounter Summary ---
Author Organization [facility] Address [address] [place] [address] Phone Care Team Providers Care Wheat Grower Name Role Phone Bala Waterman MD Primary Care Provider Encounter Details Date Type Department Care Team (Late st Contact Info) Description 05/09/2018 Ancillary Orders Virtual Department [address] [place] [address] Keely Pollock MD [address] [place] [address] Kidney stone Social History Tobacco Use Types [...] kidney documented in this encounter Care Teams Wheat Grower Relationship Specialty Start Date End Date Bala Waterman MD [address] [place] [address] PCP - General Internal Medicine 07/04/17 documented as of this encounter Additional Source Comments The information contained in this document represents components of the legal health record. It is not the complete legal health record.[facility]
--- OUTSIDE RECORDS SUMMARY | 2025-08-04 14:03 | XMS_ITS | Encounter Summary ---
Author Organization [facility] Address [address] [place] [phone] Phone Care Team Providers Care Commercial Artist Lettering Name Role Phone Pcp, Unknown Primary Care Provider Bala Cleaning MD Primary Care Provider Encounter Details Date Type Department Care Team (Late st Contact Info) Description 05/26/2017 Ancillary Orders [facility], X-Ray - [address] [address] Paige Hinton, [facility]erge[facility] [address] [place] [address], [address] [place] [address] [email or web address] Kidney stone Social History Tobacco Use Types [...] kidney documented in this encounter Care Teams Commercial Artist Lettering Relationship Specialty Start Date End Date Pcp, Unknown PCP - General 05/26/17 07/03/17 Bala Waterman MD [address] [place] [address] Dr [place], [place] [address] PCP - General Internal Medicine 07/04/17 documented as of this encounter Additional Source Comments The information contained in this document represents components of the legal health record. It is not the complete legal health record.[facility]
--- OUTSIDE RECORDS SUMMARY | 2025-08-04 14:04 | XMS_ITS | Encounter Summary ---
Author Organization [facility] Address [address] [place] [address] Phone Care Team Providers Care Gold Leaf Roller Name Role Phone Bala Waterman MD Primary Care Provider Encounter Details Date Type Department Care Team (Late st Contact Info) Description 08/12/2023 Procedure Pass [facility], Ct Scan - [facility] [address] [place] [address] Social History Tobacco Use Types Packs/Day Years [...] on filedocumented in this encounter Care Teams Gold Leaf Roller Relationship Specialty Start Date End Date Bala Waterman MD [address] [place] [address] [place] [address] PCP - General Internal Medicine 07/04/17 documented as of this encounter Additional Source Comments The information contained in this document represents components of the legal health record. It is not the complete legal health record.[facility]
--- OUTSIDE RECORDS SUMMARY | 2025-08-04 14:04 | XMS_ITS | Encounter Summary ---
Author Organization [facility] Address [address] [place] [phone] Phone Care Team Providers Care Lease Broker Name Role Phone Bala Waterman MD Primary Care Provider Encounter Details Date Type Department Care Team (Late st Contact Info) Description 08/16/2023 Procedure Pass [facility], Ct Scan - [facility] [address] [place] [address] Social History Tobacco Use Types Packs/Day Years [...] on filedocumented in this encounter Care Teams Lease Broker Relationship Specialty Start Date End Date Bala Waterman MD [address] [place] [address] [place] [address] PCP - General Internal Medicine 07/04/17 documented as of this encounter Additional Source Comments The information contained in this document represents components of the legal health record. It is not the complete legal health record.[facility]
--- OUTSIDE RECORDS SUMMARY | 2025-08-04 14:04 | XMS_ITS | Encounter Summary ---
Author Organization [facility] Address [address] [place] [address] Phone Care Team Providers Care Aeronautical Engineering Officer Name Role Phone Bala Waterman MD Primary Care Provider Encounter Details Date Type Department Care Team (Late st Contact Info) Description 08/12/2023 Procedure Pass [facility], Ct Scan - [facility] [address] [place] [address] Social History Tobacco Use Types Packs/Day Years [...] on filedocumented in this encounter Care Teams Aeronautical Engineering Officer Relationship Specialty Start Date End Date Bala Waterman MD [address] [place] [address] [place] [address] PCP - General Internal Medicine 07/04/17 documented as of this encounter Additional Source Comments The information contained in this document represents components of the legal health record. It is not the complete legal health record.[facility]
== END 2025-08-04 11:17 | disposition home or self-care (01) ==
LOC: HO.HMCHD 10:30
PROVIDERS: PCP Physician Assistant Medical; Visit Provider Physician Assistant Medical
DX: F33.1 Major depressive disorder, recurrent, moderate (principal); I15.2 Hypertension secondary to endocrine disorders; E11.42 Type 2 diabetes mellitus with diabetic polyneuropathy; Z79.4 Long term (current) use of insulin; M16.11 Unilateral primary osteoarthritis, right hip; I73.9 Peripheral vascular disease, unspecified; J30.9 Allergic rhinitis, unspecified

== ENCOUNTER 2025-08-04 10:29 | Outpatient (REF) | payer MEDICARE, SELFPAY | END 2025-08-04 10:30 | disposition home or self-care (01) | LOC: HO.10HDL 10:29 | PROVIDERS: PCP Physician Assistant Medical; Visit Provider Physician Assistant Medical | DX: E11.42 Type 2 diabetes mellitus with diabetic polyneuropathy (principal); M17.12 Unilateral primary osteoarthritis, left knee; M19.072 Primary osteoarthritis, left ankle and foot; F33.1 Major depressive disorder, recurrent, moderate; I15.2 Hypertension secondary to endocrine disorders; M16.11 Unilateral primary osteoarthritis, right hip; J30.9 Allergic rhinitis, unspecified; E11.51 Type 2 diabetes mellitus with diabetic peripheral angiopathy without gangrene; Z79.4 Long term (current) use of insulin | CPT/HCPCS: 36415; 82947; 83036; 99212 ==